=== PATIENT | female | born 1955 | race Caucasian/White ===

== ENCOUNTER 2018-10-13 13:38 | Inpatient (IN) | payer MEDICAID, OTHER ==
[~2018-10-13] VITALS: Ht 157.5 cm; Wt 51.3 kg
--- NOTE | 2018-10-13 13:55 | NUR ---
BIB [id number], SUDDEN ABD PAIN & VOMITING DURING DIALYSIS 30 MINS AGO. FEELING BETTER NOW. DENIES ANY DISCOMFORT @ THIS TIME. TO ER BED 10, HOOKED TO MONITOR, CHANGED TO DR JENA PEREZ AT BEDSIDE
[2018-10-13 13:59] LABS: BASOPHILS % (AUTO) 0.5 % (0.0-2.0); EOSINOPHILS % (AUTO) 2.3 % (0.0-6.0); HEMATOCRIT 41 % (33-45); LYMPHOCYTES # (AUTO) 0.7 /CMM (0.8-4.8); LYMPHOCYTES % (AUTO) 9.7 % (20.0-44.0); MEAN CORPUSCULAR HGB CONC 32 g/dl (31.0-36.0); MEAN CORPUSCULAR VOLUME 91 fL (82-100); MONOCYTES # (AUTO) 0.1 /CMM (0.1-1.30); MONOCYTES % (AUTO) 1.2 % (2.0-12.0); NEUTROPHILS # (AUTO) 5.8 /CMM (1.8-8.9); NEUTROPHILS % (AUTO) 86.3 % (43.0-81.0); PLATELET COUNT (AUTO) 147 /CMM (150-450); RED BLOOD CELL COUNT(AUTO) 4.44 MIL/uL (4.0-5.2); WHITE BLOOD COUNT (AUTO) 6.7 K/uL (4.3-11.0)
[2018-10-13 14:10] LABS: CALCIUM, SERUM 8.4 mg/dL (8.5-10.1); CREATININE 6.8 mg/dL (0.6-1.3); POTASSIUM 5.7 mmol/L (3.5-5.1)
--- NOTE | 2018-10-13 14:24 | NUR ---
CALLING YAIMA MAURER TODAY PER LIZBETH [phone]
--- NOTE | 2018-10-13 15:29 | NUR ---
GOT BED 112-1
--- NOTE | 2018-10-13 15:36 | NUR ---
REPORT GIVEN TO ANJUM OF TELE UNIT.
[2018-10-13 16:00] VITALS: BP 136/55
--- NOTE | 2018-10-13 16:00 | NUR ---
Admission Note: patient was received from emergency room, alert and oriented. No complaints of any pain, No epigastric pain, no nausea or vomiting. patient believed she got nauseated with dialysis being started too fast at outside dialysis. family at bedside. NKA, height and weigh obtained.
[2018-10-13] MEDS ORDERED: ACETAMINOPHEN 325 MG TABLET PO PRN (16:30)
[2018-10-13] MEDS ORDERED: MAG HYDROX/AL HYDROX/SIMETH 30 ML UDC PO PRN (16:30)
[2018-10-13] MEDS ORDERED: Z GUARD REMEDY 2 OZ OINT TP PRN (16:30)
[2018-10-13] MEDS ORDERED: ONDANSETRON HCL/PF 4 MG/2 ML VIAL IVP PRN (16:30)
[2018-10-13] MEDS ORDERED: AMLO5TAB9 PO (16:40)
[2018-10-13] MEDS ORDERED: FOLI0.8T23 PO (16:40)
[2018-10-13] MEDS ORDERED: CARV3.122 PO (16:40)
[2018-10-13] MEDS ORDERED: LINA5TAB PO (16:40)
[2018-10-13] MEDS ORDERED: CALC667C6 PO (16:40)
[2018-10-13] MEDS ORDERED: BENA40TA8 PO (16:40)
[2018-10-13 20:00] VITALS: BP 159/71
--- NOTE | 2018-10-13 20:05 | NUR ---
RN NOTE NOTIFIED Urmila CROWE COMMUNICATIONS SYSTEMS ENGINEER TO GO OVER MEDICATION RECON., PER Urmila SEGAL COMMUNICATIONS SYSTEMS ENGINEER SHE WILL GO OVER
[2018-10-13] MEDS: CALCIUM ACETATE 667 MG TABLET PO SCH (21:28)
[2018-10-14] VITALS (7 sets, daily range): BP systolic 123–160; BP diastolic 59–75
[2018-10-14 07:20] LABS: BASOPHILS # (AUTO) 0.1 /CMM (0.0-0.2); BASOPHILS % (AUTO) 1.2 % (0.0-2.0); EOSINOPHILS % (AUTO) 7.2 % (0.0-6.0); HEMATOCRIT 32 % (33-45); HEMOGLOBIN 10.5 g/dL (11.5-14.8); LYMPHOCYTES # (AUTO) 1.3 /CMM (0.8-4.8); LYMPHOCYTES % (AUTO) 18.1 % (20.0-44.0); MEAN CORPUSCULAR HGB CONC 32 g/dl (31.0-36.0); MEAN CORPUSCULAR VOLUME 90 fL (82-100); MONOCYTES # (AUTO) 0.4 /CMM (0.1-1.30); MONOCYTES % (AUTO) 6.1 % (2.0-12.0); NEUTROPHILS # (AUTO) 4.9 /CMM (1.8-8.9); NEUTROPHILS % (AUTO) 67.4 % (43.0-81.0); PLATELET COUNT (AUTO) 142 /CMM (150-450); RED BLOOD CELL COUNT(AUTO) 3.58 MIL/uL (4.0-5.2); WHITE BLOOD COUNT (AUTO) 7.3 K/uL (4.3-11.0)
[2018-10-14 07:37] LABS: CALCIUM, SERUM 8.4 mg/dL (8.5-10.1); MAGNESIUM 2.8 mg/dL (1.8-2.4); PHOSPHORUS 6.6 mg/dL (2.5-4.9)
[2018-10-14 07:40] LABS: POTASSIUM 6.3 mmol/L (3.5-5.1)
[2018-10-14 07:47] LABS: THYROID STIMULATING HORMONE 1.54 uIU/mL (0.358-3.74)
--- NOTE | 2018-10-14 08:00 | NUR ---
satellite television installer note received patient in bed ,alert oriented x3, family at bedside on ra, no sob noted, rt cw hd cath in place ,lt ac hl intact ,no s\s infection noted , plan of care discussed with patient, able to ambulate to br and urinated yellow color urine ,no c\o pain or discomfort at this time, bed in lowest and locked position , will cont to monitor closely
[2018-10-14] MEDS: CALCIUM ACETATE 667 MG TABLET PO SCH ×3 (08:05→17:01)
[2018-10-14] MEDS: LINAGLIPTIN 5 MG TABLET PO SCH (08:05)
[2018-10-14] MEDS: VIT B CMPLX 3/FA/VIT C/BIOTIN 1 TAB TABLET PO SCH (08:05)
[2018-10-14] MEDS: AMLODIPINE BESYLATE 5 MG TABLET PO SCH ×2 (08:08→16:52)
[2018-10-14] MEDS: CARVEDILOL 3.125 MG TABLET PO SCH ×2 (08:08→16:51)
[2018-10-14] MEDS: PANTOPRAZOLE 40 MG TABLET.DR PO SCH (08:09)
--- NOTE | 2018-10-14 08:46 | NUR ---
SUBSCRIPTION CREW LEADER NOTE SEEN BY DR CHIRINOS AWARE THAT K 6.3 BUN 100 ALSO EKG DONE BY RT ,WILL F\U
[2018-10-14] MEDS ORDERED: BENAZEPRIL HCL 20 MG TABLET PO SCH (09:00)
[2018-10-14] MEDS ORDERED: Medication Not On Formulary EA (Benazepril Hcl 40 MG) PO SCH (09:00)
[2018-10-14] MEDS ORDERED: Medication Not On Formulary EA (Folic Acid/Vitamin B Comp W-C (Rena-Vite Tablet) 0.8 MG) PO SCH (09:00)
--- NOTE | 2018-10-14 10:18 | NUR ---
EXT JS DEVELOPER NOTE SUPINE BP IS 169/75 SITTING 172/70 STANDING 170/67 DR MCINTYRE NOTIFIED NO OTHER BP MEDS AT THIS TIME, STATED PATIENT NEED HD ,WILL F\U
[2018-10-14 10:29] LABS: THYROID STIMULATING HORMONE 1.707 uIU/mL (0.358-3.74)
--- NOTE | 2018-10-14 12:34 | NUR ---
REHABILITATION PHYSICIAN NOTES [facility] COLLECTED HD AT BEDSIDE ,WILL START HD NOW
--- NOTE | 2018-10-14 14:14 | NUR ---
PHOTOGRAPHIC ARTIST NOTE ABD US DONE ORDERED
[2018-10-14 14:47] LABS: APPEARANCE,URINE CLEAR (CLEAR); BILIRUBIN,URINE NEGATIVE (NEGATIVE); BLOOD, URINE TRACE-INTA Ery/uL (NEGATIVE); COLOR,URINE YELLOW (YELLOW); KETONES,URINE NEGATIVE (NEGATIVE); LEUKOCYTE ESTERASE ,URINE NEGATIVE (NEGATIVE); NITRITE, URINE NEGATIVE (NEGATIVE); PH,URINE 7.5 (5.0-8.0); PROTEIN,URINE 2+ mg/dl (NEGATIVE); UGLUCOSE 1+ mg/dL (NEGATIVE); UROBILINOGEN,URINE 0.2 EU/dL (0.2)
--- NOTE | 2018-10-14 14:55 | NUR ---
CARPENTER FORM NOTE ON HD AT THIS TIME FAMILY AT BEDSIDE ,NOT IN DISTRESS, WILL F\I
[2018-10-14 15:19] LABS: BACTERIA,URINE None seen /HPF (None Seen); RBC,URINE 0-2 /HPF (0-2); SQUAMOUS EPITHELIAL CELL,UR Few /HPF (None Seen); WBC,URINE 0-2 /HPF (0-3)
--- NOTE | 2018-10-14 15:40 | NUR ---
CLOSER ON NOTE HD COMPLETED, 1.5 FLUIDS REMOVED BP 159/66 HR 71
[2018-10-14] MEDS: AZITHROMYCIN 250 MG TABLET PO SCH (16:05)
[2018-10-14] MEDS: CEFTRIAXONE 1 G in IV D5W 50 ML IV SCH (17:32)
--- NOTE | 2018-10-14 17:41 | NUR ---
telecommunications support note carotid us doing now .family at bedside, call needs attended
--- NOTE | 2018-10-14 18:12 | NUR ---
outbound telemarketing representative note all needs attended, eat dinner family at bedside ,not in acute distress
--- NOTE | 2018-10-14 20:00 | NUR ---
RN/TELE NOTES: RECEIVED PT. IN BED W/ HOB ELEVATED. A/O X 4. VERBALLY RESPONSIVE. DENIES ANY C/O CHEST PAIN OR SOB AT PRESENT. ON TELE MONITOR W/ SR. HAS RT. UPPER CHEST WALL HD CATH. HAD DIALYSIS W/ 1.5 L OUT. HAS LAC HL PATENT AND INTACT W/ NO S/S OF INFECTION/INFILTRATION NOTED. CONTINENT OF B/B. CALL LIGHT W/ REACH. ALL NEEDS MEET.
[2018-10-15] VITALS: BP_SYST 148; BP_SYST 149; BP_SYST 158; BP_DIAS 58; BP_DIAS 75
[2018-10-15 04:00] VITALS: BP 158/68
[2018-10-15 06:36] LABS: BASOPHILS # (AUTO) 0.1 /CMM (0.0-0.2); BASOPHILS % (AUTO) 0.9 % (0.0-2.0); EOSINOPHILS % (AUTO) 8.9 % (0.0-6.0); HEMATOCRIT 33 % (33-45); HEMOGLOBIN 10.7 g/dL (11.5-14.8); LYMPHOCYTES # (AUTO) 1.1 /CMM (0.8-4.8); LYMPHOCYTES % (AUTO) 19.9 % (20.0-44.0); MEAN CORPUSCULAR HGB CONC 33 g/dl (31.0-36.0); MEAN CORPUSCULAR VOLUME 89 fL (82-100); MONOCYTES # (AUTO) 0.5 /CMM (0.1-1.30); MONOCYTES % (AUTO) 7.9 % (2.0-12.0); NEUTROPHILS # (AUTO) 3.5 /CMM (1.8-8.9); NEUTROPHILS % (AUTO) 62.4 % (43.0-81.0); PLATELET COUNT (AUTO) 104 /CMM (150-450); RED BLOOD CELL COUNT(AUTO) 3.66 MIL/uL (4.0-5.2); WHITE BLOOD COUNT (AUTO) 5.7 K/uL (4.3-11.0)
[2018-10-15 06:41] LABS: ALBUMIN 3.3 g/dL (3.4-5.0); BILIRUBIN,TOTAL 0.4 mg/dL (0.2-1.0); CALCIUM, SERUM 8.5 mg/dL (8.5-10.1); CREATININE 5.8 mg/dL (0.6-1.3); MAGNESIUM 2.4 mg/dL (1.8-2.4); PHOSPHORUS 5.5 mg/dL (2.5-4.9); POTASSIUM 4.8 mmol/L (3.5-5.1); TOTAL PROTEIN, SERUM 6.4 g/dL (6.4-8.2)
--- NOTE | 2018-10-15 07:15 | NUR ---
RN/TELE NOTES: REPORT GIVEN TO NEXT SHIFT NURSE FOR LASHANDA.
[2018-10-15 08:00] VITALS: BP 162/61
[2018-10-15] MEDS: PANTOPRAZOLE 40 MG TABLET.DR PO SCH (08:25)
[2018-10-15] MEDS: CALCIUM ACETATE 667 MG TABLET PO SCH ×3 (08:26→18:45)
[2018-10-15] MEDS: LINAGLIPTIN 5 MG TABLET PO SCH (08:35)
[2018-10-15] MEDS: VIT B CMPLX 3/FA/VIT C/BIOTIN 1 TAB TABLET PO SCH (08:35)
[2018-10-15] MEDS: AMLODIPINE BESYLATE 5 MG TABLET PO SCH ×2 (08:35→18:45)
[2018-10-15] MEDS: CARVEDILOL 3.125 MG TABLET PO SCH ×2 (08:36→18:46)
[2018-10-15] MEDS ORDERED: ASPIRIN 81 MG TAB.CHEW PO SCH (09:00)
[2018-10-15] MEDS ORDERED: AZIT250T PO (11:53)
[2018-10-15] MEDS ORDERED: ASPI-1169 PO (11:53)
[2018-10-15 12:00] VITALS: BP 161/88
--- NOTE | 2018-10-15 13:50 | NUR ---
phoslo 1334mg not given due to patient is having dialysis at this time
--- NOTE | 2018-10-15 14:05 | NUR ---
MS RN NOTES RECEIVED PT FROM MOMO BRADY .PT IS LYING ON BED HAVING HEMO DIALYSIS.ALERT/ORIENTED X3.ON ROOM AIR,TOLERATING WELL.NO SOB AND ACUTE DISTRESS NOTED.IV LINE IS ON LEFT AC AND HD CATH I ON RIGHT CHEST WALL,SITE IS CLEAN DRY AND INTACT.NO INFILTRATION NOTED.FAMILY IS AT BEDSIDE.SAFETY IS MAINTAINED AT ALL TIMES.CALL LIGHT IS WITHIN REACH.WILL CONTINUE TO MONITOR THE PT CLOSELY.
--- NOTE | 2018-10-15 14:12 | NUR ---
report given to MOMO Ozuna with questions asnwered
[2018-10-15 16:00] VITALS: BP 163/62
[2018-10-15] MEDS: CEFTRIAXONE 1 G in IV D5W 50 ML IV SCH (16:32)
--- NOTE | 2018-10-15 16:45 | NUR ---
MS RN NOTES PT WENT TO HAVE CTA CHEST WITH CONTRAST WITH STAFF.
[2018-10-15] MEDS ORDERED: CT SWABBABLE VALVE TRANS SET 1 EA INFUS.SET MC ONE (16:57)
[2018-10-15] MEDS ORDERED: IOHEXOL-350 100 ML VIAL IV ONE (16:57)
[2018-10-15] MEDS ORDERED: IV NS 0.9% 250 ML IV ONE (16:58)
[2018-10-15] MEDS ORDERED: METOPROLOL TARTRATE INJ 5 MG/5 ML AMPUL ONE ×5 (16:58→17:52)
--- NOTE | 2018-10-15 18:20 | NUR ---
MS RN NOTES PT CAME BACK FROM CT SCAN.TOLERATED WELL.NO COMPLICATIONS NOTED.WAITING FOR THE RESULT.
[2018-10-15] MEDS: AZITHROMYCIN 250 MG TABLET PO SCH (18:46)
--- NOTE | 2018-10-15 19:00 | NUR ---
MS RN NOTES PT IS ON BED.RESPIRATION IS EVEN AND NONLABORED.NO SOB AND ACUTE DISTRESS NOTED.EXIT CARE IS DONE.ENDORSED TO NIGHT MOMO TEJADA FOR LASHANDA AND FOLLOW UP WITH DISCHARGE PLAN.
[2018-10-15 20:00] VITALS: BP 149/62
--- NOTE | 2018-10-15 21:11 | NUR ---
MS /RN NOTES: RECEIVED PT. IN CHAIR SITTING AND WAITING TO BE D/C. A/O X 4. VERBALLY RESPONSIVE. ABLE TO MAKE NEEDS KNOWN. DENIES ANY C/O CHEST PAIN OR SOB AT PRESENT. HAD DIALYSIS TODAY W/ 1 L OUT. ALL NEEDS MEET. PER PT. THEY HAVE ALL READY TOOK OUT THE HL ON LAC THE NURSE EARLIER. AT BEDSIDE. CT RESULTS CAME AND CLARIFIED W/ DR. AVIS DUPREE W/ ORDERS CLEARED TO BE DISCHARGED. D/C INSTRUCTIONS GIVEN TO PT. AND . PT.'S PHARMACY IS [facility] ON [address] [facility] OF [address] IS 9 AM TO 6 PM. # IS [phone]. PT. DOES GET ANTIBIOTIC X 5 DAYS. INFORMED TO CALL [facility]BY FLOOR ON 10/16/18 AND ASK THE CHARGE NURSE TO HAVE THE RX. CALL IN THE PHARMACY. PT. LEFT UNIT W/ IN STABLE CONDITION AT 9 P.M. PT. TOOK ALL HER BELONGINGS.
== END 2018-10-15 20:30 | disposition home or self-care (01) | DRG 48 ==
LOC: ER 13:41 → TELE1 15:31 → MEDSG1 10-15 08:36
PROVIDERS: ADMIT Registered Nurse; ATTEND Nurse Practitioner Acute Care
PROC: 5A1D70Z Performance of Urinary Filtration, Intermittent, Less than 6 Hours Per Day (ICD-10-PCS; principal; 2018-10-14)
PROC: 5A1D70Z Performance of Urinary Filtration, Intermittent, Less than 6 Hours Per Day (ICD-10-PCS; 2018-10-15)
DX: G90.8 Other disorders of autonomic nervous system (principal); I21.A1 Myocardial infarction type 2; E87.8 Other disorders of electrolyte and fluid balance, not elsewhere classified; J15.9 Unspecified bacterial pneumonia; E11.22 Type 2 diabetes mellitus with diabetic chronic kidney disease; I12.0 Hypertensive chronic kidney disease with stage 5 chronic kidney disease or end stage renal disease; N25.0 Renal osteodystrophy; N18.6 End stage renal disease; E87.5 Hyperkalemia; Z99.2 Dependence on renal dialysis; D64.9 Anemia, unspecified; J20.9 Acute bronchitis, unspecified
CPT/HCPCS: 36415; 71045-TC; 75574; 76700-TC; 80048-TC; 80053-TC; 80061-TC; 81000-TC; 82728-TC; 83540-TC; 83735-TC; 83970; 84100-TC; 84439-TC; 84443-TC; 84484-TC; 85025-TC; 87081-TC; 90935-TC; 93307-TC; 93880-TC; G0378; J0696; J2405; J3490; J7050; J7060; Q9967

== ENCOUNTER 2019-10-07 12:37 | Inpatient (IN) | payer OTHER ==
[~2019-10-07] VITALS: Ht 162.6 cm; Wt 56.7 kg
[~2019-10-07 12:37] MED LIST: AMLO5TAB9 PO; ASPI-1169 PO; AZIT250T PO; CALC667C6 PO; CARV3.122 PO; FOLI0.8T23 PO; LINA5TAB PO
[2019-10-07] MEDS ORDERED: NIFE90TA38 PO (12:58)
[2019-10-07] MEDS ORDERED: ASPI-1152 PO (12:58)
[2019-10-07] MEDS ORDERED: SEVE800T7 PO (12:58)
--- NOTE | 2019-10-07 12:59 | NUR ---
Patient BIB EMS from dialysis patient per report patient has syncopal episode during dialysis BS 170 ,vitals with in normal per report .Patient to room 8 lethrgic but arousable ,palce monitor ,vitals ,EKG and kelley MD @ bedside
[2019-10-07 13:00] LABS: BASOPHILS # (AUTO) 0.1 /CMM (0.0-0.2); BASOPHILS % (AUTO) 0.8 % (0.0-2.0); EOSINOPHILS % (AUTO) 6.2 % (0.0-6.0); HEMATOCRIT 31 % (33-45); HEMOGLOBIN 10.1 g/dL (11.5-14.8); LYMPHOCYTES # (AUTO) 1.3 /CMM (0.8-4.8); LYMPHOCYTES % (AUTO) 19.7 % (20.0-44.0); MEAN CORPUSCULAR HGB CONC 33 g/dl (31.0-36.0); MEAN CORPUSCULAR VOLUME 98 fL (82-100); MONOCYTES # (AUTO) 0.4 /CMM (0.1-1.30); MONOCYTES % (AUTO) 5.6 % (2.0-12.0); NEUTROPHILS # (AUTO) 4.4 /CMM (1.8-8.9); NEUTROPHILS % (AUTO) 67.7 % (43.0-81.0); PLATELET COUNT (AUTO) 124 /CMM (150-450); RED BLOOD CELL COUNT(AUTO) 3.13 MIL/uL (4.0-5.2); WHITE BLOOD COUNT (AUTO) 6.5 K/uL (4.3-11.0)
[2019-10-07] MEDS ORDERED: ONDANSETRON HCL/PF 4 MG/2 ML VIAL ONE (13:07)
[2019-10-07 13:12] LABS: ALANINE AMINOTRANSFERASE 19 U/L (12-78); ALKALINE PHOSPHATASE 126 U/L (46-116); ASPARTATE AMINOTRANSFERASE 19 U/L (15-37); BILIRUBIN,DIRECT 0.1 mg/dL (0.0-0.2); BILIRUBIN,TOTAL 0.3 mg/dL (0.2-1.0); CALCIUM, SERUM 8.6 mg/dL (8.5-10.1); CARBON DIOXIDE 20 mmol/L (21-32); CHLORIDE 103 mmol/L (98-107); GLUCOSE 205 mg/dL (74-106); POTASSIUM 4.9 mmol/L (3.5-5.1); SODIUM SERUM 138 mmol/L (136-145); TOTAL PROTEIN, SERUM 7.4 g/dL (6.4-8.2)
--- NOTE | 2019-10-07 13:14 | NUR ---
TO CT noted patient is nauseated MD aware with orders
[2019-10-07 13:15] LABS: CREATININE 10.1 mg/dL (0.6-1.3); UREA NITROGEN, BLOOD 133 mg/dL (7-18)
[2019-10-07 13:16] LABS: SERUM AMMONIA 11 umol/L (11-32)
--- NOTE | 2019-10-07 13:20 | NUR ---
CALLED NURSING SUP FOR TELE BED.
--- NOTE | 2019-10-07 13:29 | NUR ---
NURSING SUP GAVE TELE BED 102.
[2019-10-07] MEDS ORDERED: ONDANSETRON HCL/PF - ER 4 MG/2 ML VIAL IV ONE (13:30)
--- NOTE | 2019-10-07 13:53 | NUR ---
Patient just came back from CT scan. Patient is lethargic but arousable , BS checked 189, VS checked, family at bedside.
--- NOTE | 2019-10-07 14:06 | NUR ---
Per Dr Kemi smiley to place in and out cath, patient adithyas agreed.
--- NOTE | 2019-10-07 14:17 | NUR ---
DR CHIRINOS CALLED FROM [facility]. GAVE AUTHORIZATION TO STAY.
--- NOTE | 2019-10-07 15:00 | NUR ---
Patient agrees for in and out observed steril technique urine obtained and send to lab for tox,urinalysis ,culture assisted by Padmini student nurse
[2019-10-07 15:12] LABS: APPEARANCE,URINE Cloudy (CLEAR); BILIRUBIN,URINE Negative (NEGATIVE); BLOOD, URINE Trace-intact Ery/uL (NEGATIVE); COLOR,URINE Yellow (YELLOW); KETONES,URINE Negative (NEGATIVE); LEUKOCYTE ESTERASE ,URINE Negative (NEGATIVE); NITRITE, URINE Negative (NEGATIVE); PH,URINE 5.5 (5.0-8.0); PROTEIN,URINE >=300 mg/dl (NEGATIVE); UGLUCOSE Negative (NEGATIVE); UROBILINOGEN,URINE 0.2 EU/dL (0.2)
[2019-10-07] MEDS ORDERED: Z GUARD REMEDY 2 OZ OINT TP PRN (15:30)
[2019-10-07] MEDS ORDERED: MAGNESIUM HYDROXIDE 30 ML UDC PO PRN (15:30)
[2019-10-07] MEDS ORDERED: MAG HYDROX/AL HYDROX/SIMETH 30 ML UDC PO PRN (15:30)
[2019-10-07 15:32] LABS: BACTERIA,URINE None seen /HPF (None Seen); RBC,URINE 0-2 /HPF (0-2); SQUAMOUS EPITHELIAL CELL,UR Few /HPF (None Seen); WBC,URINE 0-2 /HPF (0-3)
--- NOTE | 2019-10-07 15:44 | NUR ---
Report given to Steve Blanchard made aware paln of care ,family @ bedside 102-1
[2019-10-07 15:45] VITALS: BP 139/61
--- NOTE | 2019-10-07 15:45 | NUR ---
RN NOTES RECEIVED PATIENT FROM ED VIA JONATAN. PT IS AOX1, SLURRED SPEECH, AND IS LETHARGIC. VSS. SHE IS ON 2L OF OXYGEN VIA NC, TOLERATING WELL. LUNGS SOUND CLEAR BILATERALLY. PUPILS ARE PERRLA. SKIN IS INTACT. SHE IS ABLE TO FOLLOW COMMANDS BUT IS VERY LETHARGIC AND WEEK. ADMITTING ORDERS HAVE BEEN RECEIVED. SAFETY MEASURES HAVE BEEN IMPLEMENTED, CALL LIGHT IS WITHIN REACH, BED IS IN LOWEST AND LOCKED POSITION, SIDE RAILS UP X2, WILL CONTINUE TO MONITOR FOR ANY CHANGES.
[2019-10-07 16:00] VITALS: BP 139/61
[2019-10-07] MEDS ORDERED: DEXTROSE 50%-WATER 50 ML DISP.SYRIN IV PRN (16:00)
[2019-10-07] MEDS: ONDANSETRON HCL/PF 4 MG/2 ML VIAL IVP PRN (16:53)
[2019-10-07] MEDS: ACETAMINOPHEN 325 MG TABLET PO PRN (16:58)
[2019-10-07] MEDS: CARVEDILOL 3.125 MG TABLET PO SCH (16:59)
[2019-10-07] MEDS: SEVELAMER CARBONATE 800 MG TABLET PO SCH (18:00)
[2019-10-07] MEDS: CALCIUM ACETATE 667 MG TABLET PO SCH (18:00)
[2019-10-07] MEDS: BLOOD SUGAR DIAGNOSTIC 1 EACH STRIP IN SCH ×2 (18:29→21:34)
[2019-10-07] MEDS: INSULIN REGULAR, HUMAN 100 UNIT/ML 3 ML VIAL SQ PRN ×2 (18:30→21:38)
--- NOTE | 2019-10-07 19:30 | NUR ---
recieved in bed lethrgic. left arm HD cath wrapped in gauze CDI. Family at the bedside. patient will follow directions Hand cell installer weak
--- NOTE | 2019-10-07 19:52 | NUR ---
RN CLOSING NOTES PATIENT IS RESTING IN BED COMFORTABLY WITH FAMILY AT BEDSIDE. SHE IS STILL LETHARGIC. SHE IS ON 2L OF O2, TOLERATING WELL. PT NEEDS HAVE BEEN MET, VITAL SIGNS ARE STABLE, NO ACUTE CHANGES OCCURRED THROUGHOUT THE SHIFT. SAFETY MEASURES HAVE BEEN IMPLEMENTED, CALL LIGHT IS WITHIN REACH, BED IS IN LOWEST AND LOCKED POSITION, SIDE RAILS UP X2, PT HAS BEEN ENDORSED TO NIGHTSHIFT RN FOR CONTINUITY OF CARE.
[2019-10-07 20:00] VITALS: BP 177/72
[2019-10-07] MEDS: CLONIDINE HCL 0.1 MG TABLET PO PRN (20:40)
[2019-10-08] VITALS: BP 168/72
[2019-10-08] MEDS: ONDANSETRON HCL/PF 4 MG/2 ML VIAL IVP PRN (03:19)
[2019-10-08] MEDS: ACETAMINOPHEN 325 MG TABLET PO PRN ×3 (04:12→18:24)
[2019-10-08] MEDS: CLONIDINE HCL 0.1 MG TABLET PO PRN (04:17)
[2019-10-08 05:20] VITALS: BP 183/83
--- NOTE | 2019-10-08 06:19 | NUR ---
rEMAINS LETHARGIC BUT AROUSABLE AND WILL ANSWER SIMPLE QUESTION AND FOLLOW SIMPLE COMMANDS. HAND MAIL SORTER EQUAL AND WEAK ANTHONY SMILE IS SYMETRICAL, DTR AT BEDSIDE CONCERNED OVER CONDITION OF HER MOM. PATIENTS B/P RUNNUNG HIGH NOT REALLY BEING CONTROLLED WITH PRN CLONIDINE WILL LET KNOW THIS AM
[2019-10-08 06:34] LABS: BASOPHILS % (AUTO) 0.1 % (0.0-2.0); HEMATOCRIT 30 % (33-45); HEMOGLOBIN 9.8 g/dL (11.5-14.8); LYMPHOCYTES # (AUTO) 0.3 /CMM (0.8-4.8); LYMPHOCYTES % (AUTO) 4.4 % (20.0-44.0); MEAN CORPUSCULAR HGB CONC 33 g/dl (31.0-36.0); MEAN CORPUSCULAR VOLUME 98 fL (82-100); MONOCYTES # (AUTO) 0.2 /CMM (0.1-1.30); MONOCYTES % (AUTO) 2.8 % (2.0-12.0); NEUTROPHILS # (AUTO) 6.4 /CMM (1.8-8.9); NEUTROPHILS % (AUTO) 92.7 % (43.0-81.0); PLATELET COUNT (AUTO) 114 /CMM (150-450); RED BLOOD CELL COUNT(AUTO) 3.04 MIL/uL (4.0-5.2); WHITE BLOOD COUNT (AUTO) 6.9 K/uL (4.3-11.0)
[2019-10-08] MEDS: BLOOD SUGAR DIAGNOSTIC 1 EACH STRIP IN SCH ×4 (06:36→21:12)
[2019-10-08 06:49] LABS: THYROID STIMULATING HORMONE 1.489 uIU/mL (0.358-3.74)
[2019-10-08 06:53] LABS: CALCIUM, SERUM 8.8 mg/dL (8.5-10.1); MAGNESIUM 3.2 mg/dL (1.8-2.4); PHOSPHORUS 4.8 mg/dL (2.5-4.9)
[2019-10-08 07:20] LABS: CREATININE 11.7 mg/dL (0.6-1.3); POTASSIUM 6.9 mmol/L (3.5-5.1)
[2019-10-08 08:00] VITALS: BP 194/63
[2019-10-08] MEDS: CALCIUM ACETATE 667 MG TABLET PO SCH ×3 (08:00→17:59)
[2019-10-08] MEDS: SEVELAMER CARBONATE 800 MG TABLET PO SCH ×3 (08:00→17:59)
[2019-10-08] MEDS: CARVEDILOL 3.125 MG TABLET PO SCH ×2 (08:22→17:00)
[2019-10-08] MEDS: NIFEdipine XL (30MG) 30 MG TAB PO SCH (08:23)
[2019-10-08] MEDS: VITAMIN B COMP W-C 1 TAB TABLET PO SCH (08:28)
[2019-10-08] MEDS: ASPIRIN EC 81 MG TABLET.DR PO SCH (08:28)
--- NOTE | 2019-10-08 08:28 | NUR ---
TELE/RN NOTES MEDICATION COREG AND NIFEDIPINE WAS GIVEN DUE TO HIGH BLOOD PRESSURE. PER DIALYSIS NURSE DR. MAURER IS AWARE OF THE CURRENT CONDITION OF THE PATIENT WITH HIGH B/P, POTASSIUM, BUN AND CREAT. WILL CONTINUE TO MONITOR CLOSELY.
--- NOTE | 2019-10-08 08:30 | NUR ---
TELE/RN NOTES SPOKE TO DR. WILLIAMSON REGARDING THE PATIENT FOR TOMORROWS PROCEDURE, REVISION OF THE AV FISTULA, AND PLACEMENT OF A TUNNELED DIALYSIS CATHETER. HE ALSO ORDERED BMP FOR TOMORROW AND PATIENT WILL BE NPO AT MIDNIGHT. DAUGHTER AT BEDSIDE WAS MADE AWARE. ALL ORDERED NOTED AND CARRIED OUT. WILL CONTINUE TO MONITOR PATIENT CLOSELY.
[2019-10-08] MEDS ORDERED: AMLODIPINE BESYLATE 5 MG TABLET PO SCH (09:00)
--- NOTE | 2019-10-08 10:30 | NUR ---
TELE/RN NOTES DR. SALAZAR ARRIVED IN THE UNIT TO PLACE A TEMPORARY DIALYSIS SITE ON THE R FEMORAL AREA. PATIENT WAS ABLE TO TOLERATE THE PROCEDURE WELL. AWAITING FOR DIALYSIS SESSION.
[2019-10-08] MEDS ORDERED: SODIUM POLYSTYRENE SULFONATE 15 G/60 ML BOTTLE PO ONE (11:00)
--- NOTE | 2019-10-08 11:30 | NUR ---
TELE/RN NOTES PER CHARGE NURSE SOON, HOLD KAYEXALATE FOR NOW SINCE PATIENT IS DOING DIALYSIS. AFTER DIALYSIS WE WILL CHECK POTASSIUM LEVELS AND IF KAYEXALATE IS NEEDED IT WILL BE GIVEN. PATIENT CONTINUES TO REMAIN IN STABLE CONDITION. WILL CONTINUE TO MONITOR.
--- NOTE | 2019-10-08 11:42 | NUR ---
TELE/RN NOTES MEDICATION INSULIN WAS NOT GIVEN DUE TO NPO STATUS. BS IS 163 AT THE MOMENT. CONTINUE TO MONITOR CLOSELY.
[2019-10-08 12:00] VITALS: BP 187/66
[2019-10-08] MEDS ORDERED: ALBUMIN 25% 25 GM in PREMIX 1 EA IV PRN (14:00)
[2019-10-08 15:44] LABS: CALCIUM, SERUM 9.7 mg/dL (8.5-10.1); CREATININE 3.7 mg/dL (0.6-1.3); POTASSIUM 3.6 mmol/L (3.5-5.1)
[2019-10-08 16:00] VITALS: BP 159/61
--- NOTE | 2019-10-08 16:01 | NUR ---
TELE/RN NOTES PATIENT WAS ABLE TO TOLERATE DIALYSIS SESSION. AFTER DIALYSIS BMP WAS CHECKED ONCE AGAIN. POTASSIUM WAS 3.6, KAYEXALATE WAS NOT ADMINISTERED PER CHARGE NURSE. PATIENT CONTINUES TO REMAIN IN STABLE CONDITION. WILL CONTINUE TO MONITOR CLOSELY.
--- NOTE | 2019-10-08 17:59 | NUR ---
TELE/RN NOTES PATIENT UNABLE TO TOLERATE MEDICATIONS AT THE MOMENT, PATIENT IS TOO SLEEPY. FAMILY AT BEDSIDE TRY TO WAKE UP PATIENT WELL, BUT PATIENT CONTINUES TO SLEEP. INSULIN WAS HELD WELL DUE TO PATIENT LIMITED INTAKE. WILL CONTINUE TO MONITOR CLOSELY.
[2019-10-08] MEDS ORDERED: ACETAMINOPHEN 650 MG/SUPP.RECT RC PRN (18:00)
--- NOTE | 2019-10-08 18:25 | NUR ---
TELE/RN NOTES PATIENT IS NOTED WITH SLIGHT FEVER. TYLENOL PO WAS PULLED OUT, CRUSHED AND MIXED WITH APPLE SAUCE BUT PATIENT WAS UNABLE TO BE AROUSED. TYLENOL SUPPOSITORY WAS GIVEN INSTEAD. PATIENT WAS ABLE TO TYLENOL SUPP WELL. WILL CONTINUE TO MONITOR CLOSELY.
--- NOTE | 2019-10-08 19:15 | NUR ---
GRADING MACHINE FEEDER RECEIVED PATIENT IN BED A/O X 1 LETHARGIC ABLE TO ANSWER QUESTION FOLLOW COMMANDS, DAUGTHER AT BEDSIDE, STABLE AND NOT IN DISTRESS. WILL CONTINUE TO MONITOR
--- NOTE | 2019-10-08 19:33 | NUR ---
MS BARR RECEIVED PATIENT IN BED A/O X 3, STABLE AND NOT IN DISTRESS. WILL CONTINUE TO MONITOR Addendum: 10/08/19 at 2002 by CAMERON SCOTT RN MISTAKEN ENTRY PLEASE DISREGARD THIS DOCUMENTATION THIS IS FOR DIFFERENT PATIENT
--- NOTE | 2019-10-08 19:43 | NUR ---
TELE/RN CLOSING NOTES PATIENT CONTINUES TO REMAINS IN STABLE CONDITION THROUGHOUT THE SHIFT. PROVIDED COMFORT AND SAFETY. PATIENT ABLE TO TOLERATE DIALYSIS WELL. ALL NEEDS ANTICIPATED CALL LIGHT WITHIN REACHED. BED LOCKED AND IN LOWEST POSITION. SAFETY MAINTAINED. WILL CONTINUE TO MONITOR CLOSELY. ENDORSED TO PM NURSE FOR LASHANDA.
[2019-10-08 20:00] VITALS: BP 154/72
--- NOTE | 2019-10-08 20:21 | NUR ---
Met with patient, spouse and daughter at bedside. Patient resides locally with family in a single level dwelling. She is ambulatory and independent with adl's at baseline. Has no DME or homehealth reported. She receives hemodialysis every MWF @ 7am at [facility] [phone]. Family involved and supportive with plan of care. Pcp is Dr. Farah in [place]. Family will provide ride when discharge. Addendum: 10/08/19 at 2033 by SAUL WELCH RN Amended: Links added.
[2019-10-08] MEDS: INSULIN REGULAR, HUMAN 100 UNIT/ML 3 ML VIAL SQ PRN (21:13)
--- NOTE | 2019-10-08 21:13 | NUR ---
PT'S OLDEST DAUGTHER TOMMY AT BEDSIDE REFUSED INSULIN SLIDING SCALE COVERAGE AT THIS TIME FOR HER MOTHER. ACCORDING TO HER MOTHER IS NOT EATING THAT MUCH DESPITE EXPLAINING RISKS AND BENEFITS. BLOOS SUGAR 143 MG/DL
[2019-10-09] VITALS (10 sets, daily range): BP systolic 144–182; BP diastolic 60–80
[2019-10-09 06:16] LABS: BASOPHILS % (AUTO) 0.4 % (0.0-2.0); EOSINOPHILS % (AUTO) 0.1 % (0.0-6.0); HEMATOCRIT 26 % (33-45); HEMOGLOBIN 8.6 g/dL (11.5-14.8); LYMPHOCYTES # (AUTO) 0.5 /CMM (0.8-4.8); LYMPHOCYTES % (AUTO) 6.3 % (20.0-44.0); MEAN CORPUSCULAR HGB CONC 33 g/dl (31.0-36.0); MEAN CORPUSCULAR VOLUME 97 fL (82-100); MONOCYTES # (AUTO) 0.4 /CMM (0.1-1.30); MONOCYTES % (AUTO) 5.4 % (2.0-12.0); NEUTROPHILS # (AUTO) 6.9 /CMM (1.8-8.9); NEUTROPHILS % (AUTO) 87.8 % (43.0-81.0); PLATELET COUNT (AUTO) 96 /CMM (150-450); RED BLOOD CELL COUNT(AUTO) 2.65 MIL/uL (4.0-5.2); WHITE BLOOD COUNT (AUTO) 7.9 K/uL (4.3-11.0)
[2019-10-09 06:48] LABS: CALCIUM, SERUM 8.8 mg/dL (8.5-10.1); POTASSIUM 5.2 mmol/L (3.5-5.1)
--- NOTE | 2019-10-09 06:50 | NUR ---
PT ASLEEP AND EASILY AWAKEN, A/O X1, ANSWER SIMPLE QUESTIONS FOLLOWS COMMANDS, NO S/S OF DISTRESS AT TIME. AFEBRILE. SLEPT WELL. AM CARE RENDERED, KEPT CLEAN, DRY AND COMFORTABLE. NEEDS ATTENDED AND ANTICIPATED. SAFETY MEASURES AT ALL TIMES. WILL ENDORSE NEXT SHIFT POC. DAUGHTER TOMMY AT BEDSIDE AND WANTED TO SPEAK WITH THE DOCTOR ABOUT POLST. WILL ENDORSE
[2019-10-09 06:58] LABS: CREATININE 7.6 mg/dL (0.6-1.3)
[2019-10-09] MEDS: CALCIUM ACETATE 667 MG TABLET PO SCH ×2 (08:00→12:12)
[2019-10-09] MEDS: SEVELAMER CARBONATE 800 MG TABLET PO SCH ×2 (08:00→12:12)
--- NOTE | 2019-10-09 08:00 | NUR ---
RN NOTE PT ABLE TO BARELY RESPOND TO VERBAL STIMULI, WEAKLY OPENS EYES, TURNS HEAD, WEAK TOBACCO STRIPPING MACHINE OPERATOR BILATERAL. UNABLE TO FOLLOW OTHER COMMANDS. WILL FOLLOW UP WITH MD. FAMILY AT BEDSIDE.
[2019-10-09] MEDS: BLOOD SUGAR DIAGNOSTIC 1 EACH STRIP IN SCH ×2 (08:08→12:08)
[2019-10-09] MEDS: NIFEdipine XL (30MG) 30 MG TAB PO SCH (08:21)
[2019-10-09] MEDS: ASPIRIN EC 81 MG TABLET.DR PO SCH (08:21)
[2019-10-09] MEDS: CARVEDILOL 3.125 MG TABLET PO SCH (08:21)
[2019-10-09] MEDS: VITAMIN B COMP W-C 1 TAB TABLET PO SCH (08:22)
[2019-10-09 11:27] LABS: BAND % (MANUAL) 1 % (0.0-5.0); LYMPHOCYTES % (MANUAL) 10 % (16-48); MONOCYTES % (MANUAL) 8 % (0-11.0); NEUTROPHILS % (MANUAL) 81 (42-76)
--- NOTE | 2019-10-09 12:30 | NUR ---
RN NOTE PAGED YIFAN MENJIVAR OVER EPIC, RE CT HEAD RESULT ABOUT ACUTE STROKE, NO NEW ORDERS, HE WILL SPEAK WITH DR JACKSON.
--- NOTE | 2019-10-09 13:00 | NUR ---
RN NOTE REPORTED BOP 182/75 MM[facility] TO SENIOR LINUX SYSTEMS ADMINISTRATOR MENJIVAR, AND TEMP 100.3, NO NEW ORDERS, NO BP MEDS TO BE GIVEN AT THIS TIME
--- NOTE | 2019-10-09 13:25 | NUR ---
RN NOTE PT TRANSFERRED TO ICU RM 252, REPORT GIVEN TO HALEY KITCHEN STEWARD FOR LASHANDA. FAMILY ASKED TO WAIT IN WAITING ROOM, DAUGHTER TOMMY HAD PT'S BELONGINGS WITH HER.
--- NOTE | 2019-10-09 13:30 | NUR ---
RN NOTES RECEIVED PT FROM [facility] VIA BED. PT LETHARGIC, OPEN EYES TO PAINFUL STIMULI. ON 02 VIA NC AT 2LPM. NO RESPIRATORY DISTRESS NOTED. NO SOB NOTED. PUPIL ASSESSMENT DONE. RIGHT PUPIL, FIXED AND NON-REACTIVE. LEFT PUPIL SLUGGISH. RUE AND RLE FLACCID, LUE AND LLE RESPONDS TO PAIN. IV LINE IN PLACE. MELITON AV FISTULA NOTED. NO BRUIT OR THRILL NOTED. RIGHT FEMORAL HD CATH IN PLACE. PT CONNECTED TO MONITOR. MIRA MENJIVAR NP AT BEDSIDE. WILL CLOSELY MONITOR
--- NOTE | 2019-10-09 13:45 | NUR ---
RN NOTES NESTOR FROM [facility] CALLED. GIVEN UPDATE ON PT'S CONDITION. PT FOR TRANSFER TO [facility] FOR HYDROCEPHALUS AND ACUTE INFARCT. WILL CLOSELY MONITOR
[2019-10-09] MEDS ORDERED: IV MANNITOL 20% 250 ML in PREMIX 1 EA IV SCH (14:00)
--- NOTE | 2019-10-09 14:31 | NUR ---
RN NOTE Spoke with Levar, via phone and informed re: the transfer to other hospital.
[2019-10-09] MEDS ORDERED: [UNRECOGNIZED DRUG - CODE] IV (14:34)
--- NOTE | 2019-10-09 14:40 | NUR ---
RN NOTES 1430 CALLED [facility] FOR REPORT ([phone]) SPOKE WITH MOMO GAMBOA. ALL PERTINENT INFORMATION GIVEN. PT GOING TO ROOM 4524 BED 1. 1440 PT LEFT VIA [facility] AMBULANCE. BP 198/77, MIRA MENJIVAR, EDGE GLUER AWARE. EDGE GLUER OK WITH BP PERMISSIVE HYPERTENSION. PT REMAINS LETHARGIC, RESPONDS TO PAIN. LEFT TO [facility]. FAMILY NOTIFIED
== END 2019-10-09 14:48 | disposition short-term general hospital (02) | DRG 314 ==
LOC: ER 12:41 → TELE1 15:13 → MEDSG1 10-09 08:25 → TELE1 10-09 12:47 → ICU 10-09 13:10
PROVIDERS: ADMIT Nurse Practitioner Acute Care; ATTEND Nurse Practitioner Acute Care
PROC: 06HY33Z Insertion of Infusion Device into Lower Vein, Percutaneous Approach (ICD-10-PCS; principal; 2019-10-08)
PROC: 5A1D70Z Performance of Urinary Filtration, Intermittent, Less than 6 Hours Per Day (ICD-10-PCS; principal; 2019-10-08)
DX: T82.510A Breakdown (mechanical) of surgically created arteriovenous fistula, initial encounter (principal); I63.9 Cerebral infarction, unspecified; G93.41 Metabolic encephalopathy; N18.6 End stage renal disease; I12.0 Hypertensive chronic kidney disease with stage 5 chronic kidney disease or end stage renal disease; G90.8 Other disorders of autonomic nervous system; Z99.2 Dependence on renal dialysis; E11.65 Type 2 diabetes mellitus with hyperglycemia; I95.1 Orthostatic hypotension; E11.22 Type 2 diabetes mellitus with diabetic chronic kidney disease; Y71.2 Prosthetic and other implants, materials and accessory cardiovascular devices associated with adverse incidents; Z79.84 Long term (current) use of oral hypoglycemic drugs; E87.8 Other disorders of electrolyte and fluid balance, not elsewhere classified; D63.8 Anemia in other chronic diseases classified elsewhere; E87.5 Hyperkalemia; Z83.3 Family history of diabetes mellitus
CPT/HCPCS: 36415; 70450-TC; 71045-TC; 80048-TC; 80061-TC; 80076-TC; 80305; 81000-TC; 82140-TC; 82962-TC; 83735-TC; 84100-TC; 84443-TC; 84484-TC; 85025-TC; 85730-TC; 86706; 86850-TC; 87081-TC; 87086-TC; 87340; 90935-TC; 93307-TC; 93880-TC; A4216; A6403; C1750; G0378; J1815; J2150; J2405; P9047

== ENCOUNTER 2020-06-02 16:29 | Inpatient (IN) | payer MEDICARE, OTHER ==
[~2020-06-02] VITALS: Ht 165.1 cm; Wt 62.1 kg
[~2020-06-02 16:29] MED LIST changes: +AMLO5TAB9 GT; -AMLO5TAB9 PO; -ASPI-1169 PO; +ASPI-1420 PO; -AZIT250T PO; +CARV3.122 GT; -CARV3.122 PO; -LINA5TAB PO; +NIFE90TA38 PO; +SEVE800T7 GT; +[UNRECOGNIZED DRUG - CODE] IV
[2020-06-02] MEDS ORDERED: IV NS 0.9% 500 ML BAG IV ONE ×2 (18:30→19:30)
[2020-06-02 18:46] LABS: CALCIUM, SERUM 8.9 mg/dL (8.5-10.1); CREATININE 1.7 mg/dL (0.6-1.3); POTASSIUM 3.1 mmol/L (3.5-5.1)
[2020-06-02 18:52] LABS: BILIRUBIN,DIRECT 0.1 mg/dL (0.0-0.2); BILIRUBIN,TOTAL 0.4 mg/dL (0.2-1.0); TOTAL PROTEIN, SERUM 7.2 g/dL (6.4-8.2)
[2020-06-02] MEDS ORDERED: ACETAMINOPHEN 650 MG/SUPP.RECT RC ONE ×2 (19:18→19:30)
[2020-06-02] MEDS ORDERED: VANCOMYCIN 1 GM in IV D5W 250 ML IV ONE (19:30)
[2020-06-02] MEDS ORDERED: CEFEPIME 1 GM in IV D5W 50 ML IV ONE (19:30)
[2020-06-02 19:32] LABS: EOSINOPHILS % (AUTO) 0.1 % (0.0-6.0); LYMPHOCYTES # (AUTO) 0.4 /CMM (0.8-4.8); LYMPHOCYTES % (AUTO) 1.7 % (20.0-44.0); MEAN CORPUSCULAR HGB CONC 32 g/dl (31.0-36.0); MEAN CORPUSCULAR VOLUME 101 fL (82-100); MONOCYTES # (AUTO) 0.9 /CMM (0.1-1.30); NEUTROPHILS # (AUTO) 20.6 /CMM (1.8-8.9); NEUTROPHILS % (AUTO) 94.2 % (43.0-81.0); PLATELET COUNT (AUTO) 323 /CMM (150-450); WHITE BLOOD COUNT (AUTO) 21.9 K/uL (4.3-11.0)
--- NOTE | 2020-06-02 19:35 | NUR ---
FEVER, TACHYCARDIA, AND LOW HEMOGLOBIN. PT NONVERBAL, RR EVEN & UNLABORED. PT SEEN & EVAL'D BY DR. VILALTORO. PLACED ON SHOP SUPERINTENDENT, SR. MEDICATED ORDERED. WILL CONT TO MONITOR.
[2020-06-02] MEDS ORDERED: FAMO20TA8 GT (19:43)
[2020-06-02] MEDS ORDERED: DOCU-141 GT (19:43)
[2020-06-02] MEDS ORDERED: LEVE100S GT (19:43)
[2020-06-02] MEDS ORDERED: CLON0.1T GT (19:43)
[2020-06-02] MEDS ORDERED: ACID1TAB12 GT (19:43)
[2020-06-02] MEDS ORDERED: ATOR40TA GT (19:43)
[2020-06-02] MEDS ORDERED: MIDO10TA GT (19:43)
[2020-06-02] MEDS ORDERED: ACET-868 GT (19:43)
[2020-06-02] MEDS ORDERED: DILT30TA14 GT (19:43)
[2020-06-02] MEDS ORDERED: HEPA50008 SQ (19:43)
[2020-06-02] MEDS ORDERED: ASCO-352 GT (19:43)
[2020-06-02] MEDS ORDERED: TRAM50TA2 GT (19:43)
[2020-06-02] MEDS ORDERED: THIA100T68 GT (19:43)
[2020-06-02] MEDS ORDERED: INSU100V3 SQ (19:43)
[2020-06-02] MEDS ORDERED: CAPT50TA3 GT (19:43)
[2020-06-02] MEDS ORDERED: POLY15DR40 EACHEYE (19:43)
[2020-06-02] MEDS ORDERED: AMIN30LI27 GT (19:43)
[2020-06-02 20:04] LABS: RED BLOOD CELL COUNT(AUTO) 1.99 MIL/uL (4.0-5.2)
[2020-06-02 20:05] LABS: HEMATOCRIT 20 % (33-45); HEMOGLOBIN 6.3 g/dL (11.5-14.8)
[2020-06-02 20:08] LABS: APPEARANCE,URINE CLOUDY (CLEAR); COLOR,URINE OTHER (YELLOW)
[2020-06-02 20:10] LABS: PROTEIN,URINE 3+ mg/dl (NEGATIVE)
[2020-06-02 20:11] LABS: BILIRUBIN,URINE NEGATIVE (NEGATIVE); BLOOD, URINE 3+ Ery/uL (NEGATIVE); KETONES,URINE NEGATIVE (NEGATIVE); LEUKOCYTE ESTERASE ,URINE 3+ (NEGATIVE); NITRITE, URINE NEGATIVE (NEGATIVE); UGLUCOSE NEGATIVE (NEGATIVE); UROBILINOGEN,URINE 0.2 EU/dL (0.2)
--- NOTE | 2020-06-02 20:11 | NUR ---
BED ASSIGNMENT 202
[2020-06-02 20:24] LABS: BACTERIA,URINE 4+ /HPF (None Seen); RBC,URINE 51-80 /HPF (0-2); SQUAMOUS EPITHELIAL CELL,UR 0-2 /HPF (None Seen); WBC,URINE TOO NUMEROUS TO COUN /HPF (0-3)
[2020-06-02] MEDS ORDERED: Z GUARD REMEDY 2 OZ OINT TP PRN (21:00)
[2020-06-02] MEDS ORDERED: MIDODRINE HCL (5MG) 5 MG TABLET PO PRN (21:00)
[2020-06-02] MEDS ORDERED: MAG HYDROX/AL HYDROX/SIMETH 30 ML UDC PO PRN (21:00)
[2020-06-02] MEDS ORDERED: MAGNESIUM HYDROXIDE 30 ML UDC PO PRN (21:00)
[2020-06-02 21:12] LABS: BAND % (MANUAL) 3 % (0.0-5.0); LYMPHOCYTES % (MANUAL) 17 % (16-48); MONOCYTES % (MANUAL) 3 % (0-11.0); NEUTROPHILS % (MANUAL) 77 (42-76)
--- NOTE | 2020-06-02 22:06 | NUR ---
REPORT GIVEN TO MOMO BARNES FOR LASHANDA.
[2020-06-02 22:25] VITALS: BP 128/59
[2020-06-02 22:38] VITALS: BP 128/59
--- NOTE | 2020-06-02 23:30 | NUR ---
CDL FLATBED TRUCK DRIVER ADMITTING RECEIVE PT IN VIA JONATAN FROM [facility] AT 2225 PT PORTEX 8 5LPM HUMIDIFIED OXYGEN STABLE AND NOT IN DISTRESS NON VERBAL OPEN EYES, ADMIT TO TELEMETRY, HEAD TO TOE ASSESSMENT IS DONE RIGHT SUBCLAVIAN DIALYSIS CATH SITE INTACT WITH NO S/S OF INFECTION NOTED NO ERYTHEMA, SWELLING, PAIN AND NO S/S OF BLEEDING DRESSING CLEAN, INTACT. SEIZURE PRECAUTION. TRACH SITE INTACT WITH NO S/S OF REDNESS, BLEEDING AND ERYTHEMA, SKIN INTACT. GT TUBE SITE CLEAN AND SKIN INTACT NO SKIN BREAKDOWN SURROUND PHOTO TAKEN AND ATTACH TO CHART. GOOD SKIN CARE AT ALL TIMES. KEPT CLEAN, DRY AND COMFORTABLE. SAFETY MEASURES AT ALL TIMES. WILL CONT TO MONITOR
--- NOTE | 2020-06-02 23:36 | NUR ---
JONNY Bates [employer]ANCE [employer] FOLLOW UP FEEDING OF THE PT AND TRANSFUSION 1 PRBC
--- NOTE | 2020-06-02 23:38 | NUR ---
PAGED MULTIPLE TIMES NO ANSWER
--- NOTE | 2020-06-02 23:41 | NUR ---
CALLED TOMMY LEVY OBTAIN CONSENT FOR BLOOD TRANSFUSION 1 PRBC WITNESS BY 1 RN
[2020-06-03] VITALS (13 sets, daily range): BP systolic 118–141; BP diastolic 41–73
--- NOTE | 2020-06-03 00:11 | NUR ---
DR. SEAR GROVER CALLED BACK ORDER TO TRANSFUSE 1 PRBC AND H/H TO CONTINUE FEEDING NEPHRO @ 45ML/HR AND NO REPLACEMENT OF POTASSIUM AT THIS TIME. Paulo WILLIAM RECENT POTASSIUM Addendum: 06/03/20 at 0411 by CAMERON SCOTT RN H/H AT MORNING ROUTINE LABS
--- NOTE | 2020-06-03 00:17 | NUR ---
RT NOTE RECEIVED PATIENT TRACHED ON 5L T-BAR. TITRATED FLOW DOWN TO 3L WITH BUBBLE HUMIDIFIER SAT 98% HR 61. NO SIGNS OF RESPIRATORY DISTRESS AT THIS TIME. WILL CONTINUE TO MONITOR PATIENT. Addendum: 06/03/20 at 0020 by DALTON CIFUENTES RT Amended: Links added.
--- NOTE | 2020-06-03 00:30 | NUR ---
Leadless pacemaker over the heart. PER CHEST XRAY
--- NOTE | 2020-06-03 01:08 | NUR ---
JONNY HOSPITALIST SPOKE TO DR. GROVER OBTAIN ORDERS OF ACHS SLIDING SCALE R HUMALDEN MILD SLIDING SCALE READ BACK AND VERIFIED NOTED AND CARRIED OUT
[2020-06-03] MEDS: ATORVASTATIN 40 MG TABLET GT SCH ×2 (01:29→20:25)
[2020-06-03] MEDS: LEVETIRACETAM SOL (5 ML) 100 MG/ML UDC GT SCH ×3 (01:29→20:25)
[2020-06-03] MEDS ORDERED: DEXTROSE 50%-WATER 50 ML DISP.SYRIN IV PRN (01:30)
--- NOTE | 2020-06-03 03:28 | NUR ---
S/P BLOOD TRANSFUSION NO A/R NOTED`
--- NOTE | 2020-06-03 06:20 | NUR ---
CHILD DEVELOPMENT ASSISTANT MONITORED ACCORDINGLY, PORTEX 8 3LPM HUMIDIFIED OXYGEN STABLE. 02 SAT 100%. SR 70 WITH PAC TELE MONITOR, CONTINUOS SP02 MONITOR AT BEDSIDE, NO SEIZURE ACTIVITY, RIGHT SUBCLAVIAN DIALYSIS CATH SITE INTACT WITH NO S/S OF INFECTION NOTED NO ERYTHEMA, SWELLING, PAIN AND NO S/S OF BLEEDING DRESSING CLEAN, INTACT. TRACH SITE INTACT WITH NO S/S OF REDNESS, BLEEDING AND ERYTHEMA, AM CARE RENDERED, NURSING CARE RENDERED, KEPT CLEAN, DRY AND COMFORTABLE. ASSISTED REPOSITION EVERY 2 HOURS. GT FEEDING TOLERATED WELL. NO RESIDUAL. WOUND CARE CONSULT. SAFETY MEASURES AT ALL TIMES. ENDORSE PLAN OF CARE.
[2020-06-03] MEDS: INSULIN REGULAR, HUMAN 100 UNIT/ML 3 ML VIAL SQ PRN ×4 (07:04→21:12)
[2020-06-03] MEDS: BLOOD SUGAR DIAGNOSTIC 1 EACH STRIP IN SCH ×4 (07:04→21:07)
[2020-06-03] MEDS ORDERED: NEPRO 1,000 ML BOTTLE GT PRN ×2 (07:38)
--- NOTE | 2020-06-03 08:00 | NUR ---
CHILD NUTRITION MANAGER OPENING NOTES Received Patient resting in bed. Non-verbal, responsive to name and touch. VS stable with no acute distress. Breathing even and unlabored on 3LPM via Trach with no respiratory distress. Denies pain. No signs and symptoms of pain. Gtube in place and patent with Nephro infusing at 45ml/hr. 20g PIV on left hand, intact, patent and flushing well. Hernandez Cath in place and patent. Safety precautions in place. Bed locked and set to lowest position with side rails x 2 up. All needs rendered at this time. Call light within reach. Will continue to monitor.
[2020-06-03] MEDS: ACIDOPHILUS/BULGARICUS 1 EACH TAB.CHEW GT SCH (08:10)
[2020-06-03] MEDS: ASCORBIC ACID 500 MG TABLET GT SCH ×3 (08:11→16:30)
[2020-06-03] MEDS: DOCUSATE SODIUM 100 MG CAPSULE PO SCH (08:11)
[2020-06-03] MEDS: THIAMINE HCL 100 MG TABLET GT SCH (08:11)
[2020-06-03] MEDS: FAMOTIDINE (20 MG) 20 MG TABLET GT SCH (08:12)
[2020-06-03] MEDS ORDERED: SEVELAMER CARBONATE 800 MG TABLET PO SCH (09:00)
[2020-06-03] MEDS: ACETAMINOPHEN 325 MG TABLET PO PRN (09:22)
[2020-06-03] MEDS ORDERED: POTASSIUM CHLORIDE 20 MEQ TAB.PRT.SR PO ONE (10:30)
--- NOTE | 2020-06-03 11:00 | NUR ---
WOUND CARE CONSULT: REVIEWED CHART, NURSING DOCUMENTATION AND PHOTOS WHICH INDICATE SACRAL SCARRING AND MULTIPLE FOOT WOUNDS, PRESENT ON ADMISSION. RECOMMEND DPM CONSULT. DR GABRIEL NOTIFIED OF CONSULT REQUEST. PT IS ON LEANDRA ISOFLEX LOW AIRLOSS BED. RECOMMENDATIONS MADE FOR SKIN PROTECTION. DISCUSSED WITH NURSING STAFF. WILL SEE PRN. BIGGS IN AGREEMENT WITH PLAN OF CARE.
[2020-06-03] MEDS ORDERED: POTASSIUM CHLORIDE 20 MEQ POWDER PACKET GT ONE (11:30)
[2020-06-03] MEDS ORDERED: SEVELAMER CARBONATE 800 MG POWD.PACK GT SCH ×3 (13:00→17:00)
[2020-06-03 13:55] LABS: BASOPHILS % (AUTO) 0.2 % (0.0-2.0); EOSINOPHILS % (AUTO) 0.1 % (0.0-6.0); HEMATOCRIT 24 % (33-45); HEMOGLOBIN 7.6 g/dL (11.5-14.8); LYMPHOCYTES # (AUTO) 0.5 /CMM (0.8-4.8); LYMPHOCYTES % (AUTO) 2.2 % (20.0-44.0); MEAN CORPUSCULAR HGB CONC 32 g/dl (31.0-36.0); MEAN CORPUSCULAR VOLUME 100 fL (82-100); MONOCYTES # (AUTO) 1.1 /CMM (0.1-1.30); MONOCYTES % (AUTO) 4.9 % (2.0-12.0); NEUTROPHILS # (AUTO) 20.7 /CMM (1.8-8.9); NEUTROPHILS % (AUTO) 92.6 % (43.0-81.0); PLATELET COUNT (AUTO) 350 /CMM (150-450); RED BLOOD CELL COUNT(AUTO) 2.44 MIL/uL (4.0-5.2); WHITE BLOOD COUNT (AUTO) 22.4 K/uL (4.3-11.0)
[2020-06-03 14:14] LABS: CALCIUM, SERUM 8.6 mg/dL (8.5-10.1); CREATININE 2.8 mg/dL (0.6-1.3); MAGNESIUM 2.3 mg/dL (1.8-2.4); PHOSPHORUS 1.6 mg/dL (2.5-4.9)
[2020-06-03] MEDS: NEUTRA PHOS 1 POWD.PACKET NG SCH (16:30)
[2020-06-03 16:32] LABS: BAND % (MANUAL) 2 % (0.0-5.0); LYMPHOCYTES % (MANUAL) 6 % (16-48); MONOCYTES % (MANUAL) 1 % (0-11.0); NEUTROPHILS % (MANUAL) 91 (42-76)
--- NOTE | 2020-06-03 18:24 | NUR ---
COSMETICIAN CLOSING NOTES Patient resting in bed. Non-verbal, responsive to name and touch. VS stable with no acute distress. Breathing even and unlabored on 3LPM via Trach with no respiratory distress. Noted productive cough. Denies pain. No signs and symptoms of pain. Gtube in place and patent with Nephro infusing at 45ml/hr. 20g PIV on left hand, intact, patent and flushing well. Hernandez Cath in place and patent. Safety precautions in place. Bed locked and set to lowest position with side rails x 2 up. All needs rendered at this time. Call light within reach. Will endorse plan of care to oncoming shift.
--- NOTE | 2020-06-03 19:52 | NUR ---
RT NOTE RECEIVED PATIENT TRACHED ON T-BAR. SAT 99% HR 63. NO SIGNS OF RESPIRATORY DISTRESS AT THIS TIME. WILL CONTINUE TO MONITOR T/O SHIFT.
--- NOTE | 2020-06-03 19:52 | NUR ---
received in bed pulse ox cont on sat reads 99% resp even and unlabored skin warm and dry arterial/venous doppler tech here dressings carlos enrique feet CDI
[2020-06-03] MEDS: CEFEPIME 1 GM in IV D5W 50 ML IV SCH (20:25)
[2020-06-04] VITALS: BP 136/49
[2020-06-04] MEDS: ACETAMINOPHEN 325 MG TABLET PO PRN (01:30)
--- NOTE | 2020-06-04 01:45 | NUR ---
client has a temperature of 100.5. Tylenol has been given, in addition to cooling measures implemented. Will continue to monitor.
[2020-06-04] MEDS: NEPRO 1,000 ML BOTTLE GT PRN (03:50)
[2020-06-04 04:00] VITALS: BP 138/49
[2020-06-04 06:34] LABS: BASOPHILS # (AUTO) 0.1 /CMM (0.0-0.2); BASOPHILS % (AUTO) 0.2 % (0.0-2.0); EOSINOPHILS % (AUTO) 0.1 % (0.0-6.0); HEMATOCRIT 24 % (33-45); HEMOGLOBIN 7.8 g/dL (11.5-14.8); LYMPHOCYTES # (AUTO) 0.8 /CMM (0.8-4.8); LYMPHOCYTES % (AUTO) 3.2 % (20.0-44.0); MEAN CORPUSCULAR HGB CONC 32 g/dl (31.0-36.0); MEAN CORPUSCULAR VOLUME 100 fL (82-100); MONOCYTES % (AUTO) 4.2 % (2.0-12.0); NEUTROPHILS # (AUTO) 22.3 /CMM (1.8-8.9); NEUTROPHILS % (AUTO) 92.3 % (43.0-81.0); PLATELET COUNT (AUTO) 378 /CMM (150-450); RED BLOOD CELL COUNT(AUTO) 2.45 MIL/uL (4.0-5.2); WHITE BLOOD COUNT (AUTO) 24.2 K/uL (4.3-11.0)
--- NOTE | 2020-06-04 06:58 | NUR ---
RN CLOSING NOTES Patient IS resting in bed. Non-verbal, responsive to name and touch. VS stable with no acute distress. Breathing even and unlabored on 3LPM viA T piece with no respiratory distress. Denies pain. No signs and symptoms of pain. Gtube in place and patent with Nephro infusing at 45ml/hr. 20g PIV on left hand, intact, patent and flushing well. Hernandez Cath in place and patent. Safety precautions in place. Bed locked and set to lowest position with side rails x 2 up. All needs rendered at this time. Call light within reach. Will endorse the incoming shift.
[2020-06-04 07:23] LABS: CALCIUM, SERUM 8.6 mg/dL (8.5-10.1); CREATININE 3.8 mg/dL (0.6-1.3); MAGNESIUM 2.7 mg/dL (1.8-2.4); PHOSPHORUS 1.9 mg/dL (2.5-4.9); POTASSIUM 3.9 mmol/L (3.5-5.1)
[2020-06-04] MEDS: THIAMINE HCL 100 MG TABLET GT SCH (08:23)
[2020-06-04] MEDS: LEVETIRACETAM SOL (5 ML) 100 MG/ML UDC GT SCH ×2 (08:23→22:09)
[2020-06-04] MEDS: FAMOTIDINE (20 MG) 20 MG TABLET GT SCH (08:23)
[2020-06-04] MEDS: ACIDOPHILUS/BULGARICUS 1 EACH TAB.CHEW GT SCH (08:23)
[2020-06-04] MEDS: DOCUSATE SODIUM 100 MG CAPSULE PO SCH (08:23)
[2020-06-04] MEDS: ASCORBIC ACID 500 MG TABLET GT SCH ×3 (08:24→17:23)
[2020-06-04] MEDS: BLOOD SUGAR DIAGNOSTIC 1 EACH STRIP IN SCH ×4 (08:24→22:09)
[2020-06-04] MEDS: INSULIN REGULAR, HUMAN 100 UNIT/ML 3 ML VIAL SQ PRN ×4 (08:31→22:08)
[2020-06-04] MEDS: NEUTRA PHOS 1 POWD.PACKET NG SCH (08:34)
[2020-06-04 13:00] VITALS: BP 144/46
[2020-06-04] MEDS ORDERED: EPOETIN ALFA (10,000 UNIT) 10,000 UNIT/ML VIAL IV ONE (15:00)
[2020-06-04 17:00] VITALS: BP 155/40
--- NOTE | 2020-06-04 19:00 | NUR ---
PRESS CUTTER CLOSING NOTES Patient resting in bed. Non-verbal, responsive to name and touch. VS stable with no acute distress. Breathing even and unlabored on 3LPM viA T piece with no respiratory distress. Denies pain. No signs and symptoms of pain. Gtube in place and patent with Nephro gt feeding at 45ml/hr. off at 11 am, on at 1700. 20g PIV on left hand, intact, patent and flushing well. Hernandez Cath in place and patent. 200 ml out put. Safety precautions in place. Bed locked and set to lowest position with side rails x 2 up. All needs rendered at this time. Call light within reach. will endorse to next shift. ongoing hemodialysis. all needs met at this time.
--- NOTE | 2020-06-04 19:05 | NUR ---
SALES REPRESENTATIVE [employer] OPENING NOTES: RECEIVED PATIENT IN BED. NO S/S OF DISTRESS NOTED. BED IN LOWEST AND LOCKED POSITION. HOB ELEVATED AT 35 DEGREES AT ALL TIMES. DIALYSIS JUST FINISHED RIGHT NOW WITH 2,500 OUTPUT. WITH WESLEY CATHETER INTACT WITH MINIMAL OUTPUT OF CLARA COLORED URINE. WITH TF OFF AT THIS TIME, WILL BE TURNED ON AT 2100 TONIGHT.
--- NOTE | 2020-06-04 20:06 | NUR ---
with tracheoustomy tube intact, dressing is clean,dry and intact, suctioned. with GT INTACT, WITH SMALL AMOUNT OF YELLOWISH EXUDATE ON THE GT SITE, DRESSING CHANGED. GT FEEDING IS OFF AT THIS TIME, FLUSHED WITH 60ML WATER AND CLAMPED. PATIENT'S LOWER LEGS ARE CONTRACTED
[2020-06-04] MEDS: VANCOMYCIN POST DIALYSIS 500MG IV PRN ×2 (20:26)
[2020-06-04 21:00] VITALS: BP 133/48
--- NOTE | 2020-06-04 21:00 | NUR ---
GT FEEDING NEPRO STARTED AT 45ML/HOUR. NO RESIDUAL NOTED. HOB ELEVATED AT ALL TIMES. ORAL AND TRACH SUCTIONED.
[2020-06-04] MEDS: ATORVASTATIN 40 MG TABLET GT SCH (22:08)
[2020-06-04] MEDS: CEFEPIME 1 GM in IV D5W 50 ML IV SCH (22:09)
[2020-06-05] VITALS (7 sets, daily range): BP systolic 114–151; BP diastolic 38–82
--- NOTE | 2020-06-05 02:47 | NUR ---
WOUND TREATMENTS DONE: SACRAL SCAR-MEPILEX APPLIED.OFFLOADED AND TURNED AND REPOSITIONED. RIGHT LATERAL, PLANTAR MIDFOOT,HEEL ULCER-BETADINE GAUZE OVER THE WOUND AND COVERED WITH DRY DRESSING.OFFLOADED. LEFT LATERAL MIDFOOT ULCER,LEFT LATERAL 5TH METATARSAL HEAD ULCER, LEFT MEDIAL 1ST METATARSAL HEAD ULCER,LEFT MEDIAL HEEL ULCER- BETADINE GAUZE APPLIED OVER THE WOUND AND COVERED WITH DRY DRESSING,OFFLOADED.
--- NOTE | 2020-06-05 03:01 | NUR ---
WITH VERY LITTLE RASHES ON THE LEFT BREAST FOLD NOTED, CLEANSED WITH SOAP AND WATER, PAT DRY. RIGHT ARM SCAB NOTED.
--- NOTE | 2020-06-05 06:15 | NUR ---
HEALTHCARE ECONOMICS CONSULTANT CLOSING NOTES: PATIENT IN BED, ASLEEP,AROUSABLE. HOB ELEVATED AT ALL TIMES. BED ALARM ON, BED IN LOWEST AND LOCKED POSITION. NO S/S OF DISTRESS NOTED. NOT IN PAIN. TURNED AND REPOSITIONED. TRACH SUCTIONED. AFEBRILE.
--- NOTE | 2020-06-05 07:45 | NUR ---
UNION LABORER NOTES ALEX ELIZABETH REPORTED TEMP 100.5, ADMINISTERED TYLENOL ORDERED, WILL CONT TO MONITOR
[2020-06-05] MEDS: ACETAMINOPHEN 325 MG TABLET PO PRN ×2 (07:47→20:47)
[2020-06-05] MEDS: BLOOD SUGAR DIAGNOSTIC 1 EACH STRIP IN SCH ×4 (07:52→21:05)
[2020-06-05] MEDS: INSULIN REGULAR, HUMAN 100 UNIT/ML 3 ML VIAL SQ PRN ×4 (07:54→21:19)
--- NOTE | 2020-06-05 07:55 | NUR ---
ASSISTANT TO THE PRESIDENT OPENING NOTES RECEIVED PT ON BED, NON VERBAL, ON T-PIECE 5LPM. RESPIRATION EVEN AND NON LABORED WITH NO ACUTE RESPIRATORY DISTRESS. ABD SOFT AND NON DISTENDED WITH ACTIVE BOWEL SOUNDS,INCONTINENT, G-TUBE IN PLACE, 0 ML RESIDUAL, POSITIVE PLACEMENT THROUGH AUSCULTATION, RUNNING NEPRO 45 ML/HR HERBIE WELL. NO S/SX OF PAIN AND DISCOMFORT. SKIN WARM TO TOUCH AN DRY, BLE OFFLOAD, IV SITE AT LEFT HAND, NO S/S OF INFILTRATION, PATENT IN FLUSHING. BED IN LOW LOCKED POSITION, SRX2 UP FOR SAFETY, BED ALARM ON. ON FC WITH DARK YELLOW CLOUDY URIN, LAST OUTPUT 20 ML. TELE MONITOR SHOWS SINUS RHYTHM WITH PVC AND PAC EPISODES. WILL CONTINUE TO MONITOR CARE
[2020-06-05 08:27] LABS: BASOPHILS % (AUTO) 0.2 % (0.0-2.0); EOSINOPHILS % (AUTO) 0.3 % (0.0-6.0); HEMATOCRIT 26 % (33-45); HEMOGLOBIN 8.2 g/dL (11.5-14.8); LYMPHOCYTES # (AUTO) 0.5 /CMM (0.8-4.8); LYMPHOCYTES % (AUTO) 1.9 % (20.0-44.0); MEAN CORPUSCULAR HGB CONC 32 g/dl (31.0-36.0); MEAN CORPUSCULAR VOLUME 99 fL (82-100); MONOCYTES # (AUTO) 0.9 /CMM (0.1-1.30); MONOCYTES % (AUTO) 3.3 % (2.0-12.0); NEUTROPHILS # (AUTO) 25.9 /CMM (1.8-8.9); NEUTROPHILS % (AUTO) 94.3 % (43.0-81.0); PLATELET COUNT (AUTO) 388 /CMM (150-450); WHITE BLOOD COUNT (AUTO) 27.5 K/uL (4.3-11.0)
[2020-06-05] MEDS: LEVETIRACETAM SOL (5 ML) 100 MG/ML UDC GT SCH ×2 (08:36→20:47)
[2020-06-05] MEDS: THIAMINE HCL 100 MG TABLET GT SCH (08:36)
[2020-06-05] MEDS: ASCORBIC ACID 500 MG TABLET GT SCH ×3 (08:36→16:03)
[2020-06-05] MEDS: DOCUSATE SODIUM 100 MG CAPSULE PO SCH (08:36)
[2020-06-05] MEDS: ACIDOPHILUS/BULGARICUS 1 EACH TAB.CHEW GT SCH (08:36)
[2020-06-05] MEDS: FAMOTIDINE (20 MG) 20 MG TABLET GT SCH (08:36)
[2020-06-05] MEDS: NEUTRA PHOS 1 POWD.PACKET NG SCH (08:36)
--- NOTE | 2020-06-05 08:45 | NUR ---
PEDIATRIC CRITICAL CARE NURSE NOTES RE-CHECK TEMP 100.8F. COOLING MEASURE PROVIDED, CHANGE ROOM TEMP, CONT TO MONITOR
[2020-06-05 08:47] LABS: CREATININE 3.3 mg/dL (0.6-1.3); MAGNESIUM 2.5 mg/dL (1.8-2.4); PHOSPHORUS 2.1 mg/dL (2.5-4.9); POTASSIUM 3.8 mmol/L (3.5-5.1)
--- NOTE | 2020-06-05 09:03 | NUR ---
EFFICIENCY CLERK NOTES DR. JACKSON CALLED, REPORT GIVEN OVER THE SECURED PHONE. NEW ORDER OBTAINED FOR CT HEAD WO CONTRAST. ORDER READ BACK, NOTED AND CARRIED OUT.
--- NOTE | 2020-06-05 09:30 | NUR ---
DIRECTOR EMERGENCY SERVICES NOTES TEMP RE-CHECKED 98.9F. TO PERFORM SPONGE BATH TO PT. WILL CONT TO MONITOR
--- NOTE | 2020-06-05 13:04 | NUR ---
DEPUTY SHERIFF K9 HANDLER NOTES PT SEEN AND EVAL BY DR. JACKSON, FF UP CT SCAN ORDERED. TO CALL MD ONCE RESULT IS IN.
--- NOTE | 2020-06-05 14:10 | NUR ---
AIR TUCKER NOTES PT PICKED UP FOR CT HEAD WO CONTRAST.
--- NOTE | 2020-06-05 14:30 | NUR ---
ANIMAL RIDE ATTENDANT NOTES PT CAME BACK, POST CT SCAN
[2020-06-05] MEDS ORDERED: DOSING PER PHARMACY-AMIKACI IV XX PRN (17:00)
--- NOTE | 2020-06-05 17:20 | NUR ---
HAND LASTER NOTES CALLED PHARMACY REGARDING METRONIDAZOLE AND AMIKACIN ATB DUE AT 6PM. EXPLAINED THAT PT HAS ONLY 1 SITE AND PER MICROMEDEX BOTH ATB WITH SEVERE CONTRAINDICATION. PER STAFF, SHE WILL SEND THE METRONIDAZOLE TO BE ADMINISTERED THEN AMIKACIN AFTER.
[2020-06-05] MEDS ORDERED: AMIKACIN 400 MG in IV D5W 100 ML IV ONE (18:00)
[2020-06-05] MEDS: METRONIDAZOLE 500MG/ NS 100ML 500 MG in PREMIX 1 EA IV SCH (18:01)
--- NOTE | 2020-06-05 18:05 | NUR ---
IT SECURITY PROJECT MANAGER NOTES METRONIDAZOLE PICKED UP FROM THE PHARMACY, ADMINISTERED ORDERED
--- NOTE | 2020-06-05 18:45 | NUR ---
ROLL TESTER CLOSING NOTES PT NON VERBAL. ASSESSED NO PRESENCE OF ACUTE RESPIRATORY DISTRESS, ON T PIECE 5LPM. ABD SOFT AND NON DISTENDED, BM X2, FC WITH 50 ML OUTPUT, WITH SEDIMENTS CLOUDY BROWN IN COLOR. G-TUBE SITE CLEAN WITH 0 ML RESIDUAL, IN PLACE UPON ASSESSMENT. FLACC-0. TX PROVIDED ORDERED, BLE OFFLOAD, REPOSITION Q2H. IV SITE AT LEFT HAND #20 PATENT IN FLUSHING H/L. BED IN LOW LOCKED POSITION, SRX2 UP FOR SAFETY, BED ALARM ON. TELE MONITOR SHOWS SINUS RHYTHM WITH PVC PAC. RESTRAINT HELD, PT CALM. ENDORSED CARE TO NEXT SHIFT. Addendum: 06/05/20 at 1849 by BOBY POTTER RN ROLL TESTER CLOSING NOTES PT NON VERBAL. ASSESSED NO PRESENCE OF ACUTE RESPIRATORY DISTRESS, ON T PIECE 5LPM. ABD SOFT AND NON DISTENDED, BM X2, FC WITH 50 ML OUTPUT, WITH SEDIMENTS CLOUDY BROWN IN COLOR. G-TUBE SITE CLEAN WITH 0 ML RESIDUAL, IN PLACE UPON ASSESSMENT. FLACC-0. TX PROVIDED ORDERED, BLE OFFLOAD, REPOSITION Q2H. IV SITE AT LEFT HAND #20 PATENT IN FLUSHING H/L. BED IN LOW LOCKED POSITION, SRX2 UP FOR SAFETY, BED ALARM ON. TELE MONITOR SHOWS SINUS RHYTHM WITH PVC PAC. ENDORSED CARE TO NEXT SHIFT.
--- NOTE | 2020-06-05 19:30 | NUR ---
telegraph messenger opening note received patient in bed. patient is nonverbal. on oxygen 5l/min via t-piece. respirations are even and unlabored no s/s sob noted. no s/s pain at this time. external tele monitor reads sinus rhythm hr 64 with PAC and PVC. in no apparent distress. iv access in left hand #20 patent and saline locked. gtube is present, no residual, will resume feeding at 2100. portillo catheter is presnet, draining to gravity, urine is yellow and cloudy/brown and cloudy. bed is low and locked, hob elevated in semi fowlers, side rails up x2. laurie light within reach. will continue to monitor with robe Flowers RN.
--- NOTE | 2020-06-05 20:00 | NUR ---
DIRECTOR OF LOGISTICS NOTE RECEIVED PT IN BED A/O X0 NONVERBAL. BREATHING EVEN AND UNLABORED ON 6L T-PIECE. NO SOB OR ACUTE DISTRESS NOTED. NO FACIAL GRIMACING NOTED. GTUBE PATENT. GTF NEPRO 45ML/HR INFUSING WELL . TOLERATING WELL. LEFT HAND #20 PATENT AND INTACT. WESLEY CATH IN PLACE. YELLOW URINE WITH SEDIMENTS NOTED. NO FOUL ODOR NOTED.BILATERAL SRX2 UP. BED IN LOWEST POSITION. CALL LIGHT WITHIN REACH. REPOSITIONED AND TURNED. KEPT CLEAN AND DRY. ALL NEEDS RENDERED. WILL CONTINUE TO MONITOR.
[2020-06-05] MEDS: CEFEPIME 1 GM in IV D5W 50 ML IV SCH (20:47)
--- NOTE | 2020-06-05 20:48 | NUR ---
parachute harness rigger note pt noted with 99.9 temp. PRN acetaminophen 650mg given via gtube. Will continue to monitor.
[2020-06-05] MEDS ORDERED: MEROPENEM 1 G in IV NS 0.9% 100 ML IV SCH (21:00)
[2020-06-05] MEDS: ATORVASTATIN 40 MG TABLET GT SCH (21:04)
[2020-06-05] MEDS: NEPRO 1,000 ML BOTTLE GT PRN (21:04)
--- NOTE | 2020-06-05 22:00 | NUR ---
TELE/RN NOTES RECEIVED PATIENT IN BED, LASHANDA REPORTED BY MOMO SCHMITZ.
--- NOTE | 2020-06-05 23:00 | NUR ---
TELE/RN NOTES RECEIVED PATIENT IN BED, CONFUSED, CAN OPEN EYES ON TRAECH T-PIECE AT 5 LITER, NEEDED SUCTION PROVIDED DUE TO MODERATE SECRETIONS, NON VERBAL, WITH LEFT HAND GAUGE 20 HEP LOCK. TO MONITOR.ON GTUBE WITH NO RESIDUAL, WESLEY DRAINING URINE. BED LOCKED, CALL LIGHTS WITHIN REACH.
--- NOTE | 2020-06-05 23:15 | NUR ---
telecommunications clerk note- LASHANDA transfer of care given to Milagro BARR.
[2020-06-06] VITALS: BP 119/66
[2020-06-06] MEDS: METRONIDAZOLE 500MG/ NS 100ML 500 MG in PREMIX 1 EA IV SCH ×3 (01:49→17:52)
[2020-06-06 04:41] VITALS: BP 132/58
--- NOTE | 2020-06-06 06:47 | NUR ---
TELE/R,N NOTES PATIENT NON VERBAL, TELE/RN NOTES PATIENT NON VERBAL, OBTUNDED, ON GTUBE FEEDING,T PIECE,WILL ENDORSE TO AM RN FOR LASHANDA. ATTENDED ALL NEEDS.
[2020-06-06 07:26] LABS: BASOPHILS # (AUTO) 0.1 /CMM (0.0-0.2); BASOPHILS % (AUTO) 0.3 % (0.0-2.0); EOSINOPHILS % (AUTO) 0.9 % (0.0-6.0); HEMATOCRIT 27 % (33-45); HEMOGLOBIN 8.7 g/dL (11.5-14.8); LYMPHOCYTES # (AUTO) 0.7 /CMM (0.8-4.8); LYMPHOCYTES % (AUTO) 2.8 % (20.0-44.0); MEAN CORPUSCULAR HGB CONC 32 g/dl (31.0-36.0); MEAN CORPUSCULAR VOLUME 99 fL (82-100); MONOCYTES # (AUTO) 0.9 /CMM (0.1-1.30); MONOCYTES % (AUTO) 3.4 % (2.0-12.0); NEUTROPHILS # (AUTO) 23.4 /CMM (1.8-8.9); NEUTROPHILS % (AUTO) 92.6 % (43.0-81.0); PLATELET COUNT (AUTO) 408 /CMM (150-450); RED BLOOD CELL COUNT(AUTO) 2.76 MIL/uL (4.0-5.2); WHITE BLOOD COUNT (AUTO) 25.3 K/uL (4.3-11.0)
--- NOTE | 2020-06-06 07:30 | NUR ---
RN OPENING NOTES RECEIVED PATIENT IN BED, CAN OPEN EYES BUT NON VERBAL. ON TRAECH T-PIECE AT 5 LITER, NO CARDIAC OR RESP DISTRESS NOTED. NO SOB NOTED. SATURATING WELL. ON GTUBE FEEDING NO RESIDUALS NOTED. FLUSHED WITH H20. INTACT AND PATENTT. IV ACCESS NOTED ON LEFT HAND GAUGE 20 INTACT AND PATENT AND FLUSHING WELL. HEP LOCK. TO MONITO WESLEY DRAINING URINE HOWEVER VERY MINIMAL URINE. S/P DIALYSIS TODAY 2L TAKEN OUT. S/P LUMBAR PUNCTURE TODAY. SAFETY PRECAUTIONS IN PLACE.. BED LOCKED AND LOW. SIDE RAILS UP X 2., CALL LIGHTS WITHIN REACH.
[2020-06-06] MEDS: BLOOD SUGAR DIAGNOSTIC 1 EACH STRIP IN SCH ×4 (07:51→22:02)
[2020-06-06 08:00] VITALS: BP 124/86
[2020-06-06 08:03] LABS: CALCIUM, SERUM 9.1 mg/dL (8.5-10.1); CREATININE 4.4 mg/dL (0.6-1.3); PHOSPHORUS 2.8 mg/dL (2.5-4.9); POTASSIUM 4.1 mmol/L (3.5-5.1)
[2020-06-06] MEDS: ASCORBIC ACID 500 MG TABLET GT SCH ×3 (08:13→16:06)
[2020-06-06] MEDS: THIAMINE HCL 100 MG TABLET GT SCH (08:13)
[2020-06-06] MEDS: FAMOTIDINE (20 MG) 20 MG TABLET GT SCH (08:13)
[2020-06-06] MEDS: DOCUSATE SODIUM 100 MG CAPSULE PO SCH (08:13)
[2020-06-06] MEDS: ACIDOPHILUS/BULGARICUS 1 EACH TAB.CHEW GT SCH (08:13)
[2020-06-06] MEDS: NEUTRA PHOS 1 POWD.PACKET NG SCH (08:13)
[2020-06-06] MEDS: LEVETIRACETAM SOL (5 ML) 100 MG/ML UDC GT SCH ×2 (08:13→20:29)
[2020-06-06] MEDS: HYDROCODONE/APAP 5/325MG TABLET PO PRN ×2 (08:14→16:06)
[2020-06-06] MEDS: CEFEPIME 1 GM in IV D5W 50 ML IV SCH ×2 (08:15→20:30)
[2020-06-06] MEDS: INSULIN REGULAR, HUMAN 100 UNIT/ML 3 ML VIAL SQ PRN ×4 (08:42→22:18)
[2020-06-06] MEDS ORDERED: AMIKACIN 350 MG in IV D5W 100 ML IV PRN (09:00)
--- NOTE | 2020-06-06 09:00 | NUR ---
LUMBAR PUNCTURE OBTAINED CONSENT FROM PTS DAUGHTER TOMMY FOR LUMBAR PUNCTURE PROCEDURE. DAUGHTER GAVE CONSENT. CHARGE NURSE SOON VERIFIED CONSENT.
--- NOTE | 2020-06-06 09:30 | NUR ---
LUMBAR PUNCTURE DR. OCASIO PERFORMED LUMBAR PUNCTURE WITH MY ASSISTANCE BY BEDSIDE. PT TOLERATED PROCEDURE WELL. NO BLEEDING POST PROCEDURE NOTED. CSF COLLECTED. SENT TO LAB FOR CULTURES.
--- NOTE | 2020-06-06 10:30 | NUR ---
LABS NOTIFIED DR. OCASIO REGARDING PTS BUN 90 AND CR 4.4. AND THAT ITS TRENDING UP. ALSO MADE AWARE OF MAG LEVELS AT 3.3.
[2020-06-06 10:32] LABS: CSF GLUCOSE 146 mg/dL (40-70)
[2020-06-06 11:14] LABS: CSF PROTEIN 289.1 mg/dL (15-45)
--- NOTE | 2020-06-06 11:30 | NUR ---
CSF ANALYSIS DR. OCASIO MADE AWARE OF CSF ANALYSIS RESULST AND CSF PROTEIN LEVEL OF 289.1. NNO GIVEN.
[2020-06-06 12:00] VITALS: BP 128/76
[2020-06-06 16:00] VITALS: BP 128/76
[2020-06-06] MEDS: NEPRO 1,000 ML BOTTLE GT PRN ×2 (16:16→16:20)
--- NOTE | 2020-06-06 16:56 | NUR ---
EEG DR JACKSON CALLED. PROVIDED MD WITH PTS CURRENT STATUS. PER MD, ORDER AN EEG. NOTED AND CARRIED OUT.
[2020-06-06] MEDS: VANCOMYCIN POST DIALYSIS 500MG IV PRN ×2 (17:15)
--- NOTE | 2020-06-06 18:10 | NUR ---
EEG\\ Addendum: 06/06/20 at 1810 by JEFE CHANG RN EEG PERFORMED. TECH IS CURRENTLY BY BEDSIDE.
--- NOTE | 2020-06-06 19:00 | NUR ---
RN OPENING NOTE RECEIVED PATIENT IN BED RESTING LETHARGIC,CONFUSED,NON VERBAL ON TELE MONITORING,EYE CLOSED ON T PIECE 5L OXYGEN O2:98% NO SOB NOT ACUTE DISTRESS NOTED,IV SITE IS ON LEFT HAND INTACT PATENT,PERM CATH FOR DIALYSIS ON RIGHT UPPER CHEST INTACT,ON G-TUBE FEEDING CHECKED PLACEMENT IN PLACE NO RESIDUAL NOTED,ON NEPHRO G-TUBE FEEDING 45CC/HR,ON WESLEY CATHETER URINE DRAINING YELLOW AND CLEAR, IMPALEMENT SAFETY MEASURE ,BED LOCKED IN LOW POSITON, HEAD OF BED ELEVATED, CONTINUE TO MONITOR
--- NOTE | 2020-06-06 19:30 | NUR ---
RN CLOSING NOTES PATIENT IN BED, CAN OPEN EYES BUT NON VERBAL. ON TRAECH T-PIECE AT 5 LITER, NO CARDIAC OR RESP DISTRESS NOTED. NO SOB NOTED. SATURATING WELL. ON GTUBE FEEDING NO RESIDUALS NOTED. FLUSHED WITH H20. INTACT AND PATENTT. IV ACCESS NOTED ON LEFT HAND GAUGE 20 INTACT AND PATENT AND FLUSHING WELL. HEP LOCK. WESLEY DRAINING URINE HOWEVER VERY MINIMAL URINE. S/P DIALYSIS TODAY 2L TAKEN OUT. S/P LUMBAR PUNCTURE TODAY. SAFETY PRECAUTIONS IN PLACE.. BED LOCKED AND LOW. SIDE RAILS UP X 2., CALL LIGHTS WITHIN REACH.
[2020-06-06 20:00] VITALS: BP 154/52
[2020-06-06] MEDS: ATORVASTATIN 40 MG TABLET GT SCH (21:28)
[2020-06-07] VITALS: BP 146/44
[2020-06-07] MEDS: ACETAMINOPHEN 325 MG TABLET PO PRN ×2 (01:30→21:15)
--- NOTE | 2020-06-07 01:47 | NUR ---
RN NOTE PATIENT O2 DESATURATED TO 88%-89% CALLED RT FOR ASSIST,INCREASE OXYGEN TO 8L/MIN CONTINUE TO MONITOR
--- NOTE | 2020-06-07 01:49 | NUR ---
PT DESATURATING 87-88%, HR 68 , RR 25, SXN MODERATE SECRETIONS , ABG DONE 7.48 34 86 25 96%, INCREASE FIO2 TO 40% WILL CONTINUE TO MONITOR Addendum: 06/07/20 at 0152 by REJI PURCELL RT Amended: Links added.
[2020-06-07] MEDS: METRONIDAZOLE 500MG/ NS 100ML 500 MG in PREMIX 1 EA IV SCH ×3 (02:04→18:20)
--- NOTE | 2020-06-07 02:12 | NUR ---
RIGHT OF WAY CUTTER NOTE MD ZAMORA ALSO INFORMED THE ABG RESULT, AND RT INCREASED FIO2 TO 40%. O2 SAT 95%
[2020-06-07 04:00] VITALS: BP 129/44
[2020-06-07 06:53] LABS: BASOPHILS # (AUTO) 0.1 /CMM (0.0-0.2); BASOPHILS % (AUTO) 0.4 % (0.0-2.0); EOSINOPHILS % (AUTO) 0.5 % (0.0-6.0); HEMATOCRIT 26 % (33-45); HEMOGLOBIN 8.1 g/dL (11.5-14.8); LYMPHOCYTES # (AUTO) 0.7 /CMM (0.8-4.8); LYMPHOCYTES % (AUTO) 2.8 % (20.0-44.0); MEAN CORPUSCULAR HGB CONC 32 g/dl (31.0-36.0); MEAN CORPUSCULAR VOLUME 100 fL (82-100); MONOCYTES # (AUTO) 0.9 /CMM (0.1-1.30); MONOCYTES % (AUTO) 3.7 % (2.0-12.0); NEUTROPHILS # (AUTO) 23.4 /CMM (1.8-8.9); NEUTROPHILS % (AUTO) 92.6 % (43.0-81.0); PLATELET COUNT (AUTO) 475 /CMM (150-450); RED BLOOD CELL COUNT(AUTO) 2.57 MIL/uL (4.0-5.2); WHITE BLOOD COUNT (AUTO) 25.2 K/uL (4.3-11.0)
--- NOTE | 2020-06-07 07:18 | NUR ---
RN CLOSING NOTE PATIENT REMAINS LETHARGIC NON VERBAL FULL CODE ON TELE MONITORING NO SOB NOT ACUTE DISTRESS,ON 8L OXYGEN ON T PIECE, NOTED ALL DUE MED GIVEN MD ORDERED,KEEP CLEAN AND DRY ALL THE TIME,HEAD OF BED ELEVATED ALL THE TIME ON G-TUBE FEEDING,ENDORSE NEXT COMING SHIFT FOR CONTINUATION OF CARE.
[2020-06-07 07:36] LABS: CALCIUM, SERUM 9.2 mg/dL (8.5-10.1); CREATININE 3.5 mg/dL (0.6-1.3); MAGNESIUM 2.7 mg/dL (1.8-2.4); PHOSPHORUS 2.1 mg/dL (2.5-4.9); POTASSIUM 4.3 mmol/L (3.5-5.1)
[2020-06-07 08:00] VITALS: BP 129/59
[2020-06-07] MEDS: CEFEPIME 1 GM in IV D5W 50 ML IV SCH ×2 (09:00→21:14)
[2020-06-07] MEDS: THIAMINE HCL 100 MG TABLET GT SCH (09:00)
[2020-06-07] MEDS: DOCUSATE SODIUM 100 MG CAPSULE PO SCH (11:05)
[2020-06-07] MEDS: ASCORBIC ACID 500 MG TABLET GT SCH ×3 (11:05→17:00)
[2020-06-07] MEDS: LEVETIRACETAM SOL (5 ML) 100 MG/ML UDC GT SCH ×2 (11:05→21:15)
[2020-06-07] MEDS: ACIDOPHILUS/BULGARICUS 1 EACH TAB.CHEW GT SCH (11:05)
[2020-06-07] MEDS: NEUTRA PHOS 1 POWD.PACKET NG SCH (11:06)
[2020-06-07] MEDS: FAMOTIDINE (20 MG) 20 MG TABLET GT SCH (11:08)
[2020-06-07] MEDS: INSULIN REGULAR, HUMAN 100 UNIT/ML 3 ML VIAL SQ PRN ×2 (11:47→18:17)
[2020-06-07] MEDS ORDERED: DEXTROSE 50%-WATER 50 ML DISP.SYRIN IV PRN (12:30)
[2020-06-07 16:00] VITALS: BP 142/53
[2020-06-07] MEDS: BLOOD SUGAR DIAGNOSTIC 1 EACH STRIP VI SCH ×2 (18:20→21:16)
--- NOTE | 2020-06-07 18:51 | NUR ---
PATIENT IS ALERT AND ORIENTED TO HERSELF. PATIENT REMAINS LETHARGIC NON VERBAL FULL CODE ON TELE MONITORING. PATIENT DOES NOT DISPLAY ANY SIGNS AND SYMPTOMS OF PAIN, DISTRESS, OR SHORTNESS OF BREATH. ALL CARE NEEDS MET. WOUND CARE DONE. HOMEOSTASIS MAINTAINED AT PATIENTS BASELINE. BED IN LOW POSITION. ON 4L OXYGEN ON T PIECE. CALL LIGHT IN REACH. WILL GIVE REPORT TO NIGHT NURSE.
[2020-06-07 20:00] VITALS: BP 152/57
[2020-06-07] MEDS: ATORVASTATIN 40 MG TABLET GT SCH (21:15)
[2020-06-07] MEDS: HEPARIN SODIUM, PORCINE 5000 UNITS/1 ML VIAL SQ SCH (21:16)
[2020-06-07] MEDS: NEPRO 1,000 ML BOTTLE GT PRN (21:17)
[2020-06-07] MEDS: *INSULIN REGULAR(HUMULIN R)HUM 100 UNIT/ML VIAL SQ PRN (21:25)
[2020-06-08] MEDS: METRONIDAZOLE 500MG/ NS 100ML 500 MG in PREMIX 1 EA IV SCH ×3 (01:25→18:10)
[2020-06-08 04:00] VITALS: BP 150/49
[2020-06-08 06:45] LABS: BASOPHILS # (AUTO) 0.1 /CMM (0.0-0.2); BASOPHILS % (AUTO) 0.3 % (0.0-2.0); EOSINOPHILS % (AUTO) 0.8 % (0.0-6.0); HEMATOCRIT 25 % (33-45); HEMOGLOBIN 7.7 g/dL (11.5-14.8); LYMPHOCYTES # (AUTO) 0.6 /CMM (0.8-4.8); LYMPHOCYTES % (AUTO) 2.3 % (20.0-44.0); MEAN CORPUSCULAR HGB CONC 31 g/dl (31.0-36.0); MEAN CORPUSCULAR VOLUME 101 fL (82-100); MONOCYTES % (AUTO) 3.5 % (2.0-12.0); NEUTROPHILS # (AUTO) 25.9 /CMM (1.8-8.9); NEUTROPHILS % (AUTO) 93.1 % (43.0-81.0); PLATELET COUNT (AUTO) 455 /CMM (150-450); RED BLOOD CELL COUNT(AUTO) 2.43 MIL/uL (4.0-5.2); WHITE BLOOD COUNT (AUTO) 27.8 K/uL (4.3-11.0)
--- NOTE | 2020-06-08 06:48 | NUR ---
MS-1/SEED EXPERT DR. WILLIAMSON AT BEDSIDE TO EVALUATE PT. SAID HE WILL CONSULT WITH PODIATRY. NO NEW ORDERS. WILL CONTINUE TO MONITOR.
--- NOTE | 2020-06-08 07:06 | NUR ---
MS RN OPENING NOTE RECEIVED PT AWAKE IN BED AT THIS TIME. ALERT, EYES OPEN, ABLE TO TRACT, NON VERBAL.NO SOB NOTED, NO S/S OF ANY ACUTE DISTRESS NOTED. NO C/O PAIN AT THIS TIME. RESPIRATIONS ARE EVEN AND UNLABORED. PT NOTED WITH TRACH, IV ACCESS NOTED IN LEFT HAND G#20, PATENT, INTACT AND FLUSHING WELL. G-TUBE IN PLACE WITH NO RESIDUAL NOTED, WESLEY CATHETER IN PLACE, DRAINING TO GRAVITY, CLEAR YELLOW URINE OUTPUT. FALL, ASPIRATION AND SAFETY PRECAUTION IN PLACE AND MAINTAINED AT ALL TIMES. BED IN LOWEST LOCKED POSITION, HOB ELEVATED, SIDE RAILS UP X 2, CALL LIGHT WITHIN REACH. WILL CONTINUE TO MONITOR
[2020-06-08 07:38] LABS: CALCIUM, SERUM 9.2 mg/dL (8.5-10.1); MAGNESIUM 3.1 mg/dL (1.8-2.4); PHOSPHORUS 3.1 mg/dL (2.5-4.9); POTASSIUM 4.6 mmol/L (3.5-5.1)
[2020-06-08] MEDS: BLOOD SUGAR DIAGNOSTIC 1 EACH STRIP VI SCH ×4 (08:25→21:29)
[2020-06-08] MEDS: ACETAMINOPHEN 325 MG TABLET PO PRN (08:56)
[2020-06-08] MEDS: ASCORBIC ACID 500 MG TABLET GT SCH ×3 (08:56→17:02)
[2020-06-08] MEDS: DOCUSATE SODIUM 100 MG CAPSULE PO SCH (08:56)
[2020-06-08] MEDS: THIAMINE HCL 100 MG TABLET GT SCH (08:56)
[2020-06-08] MEDS: LEVETIRACETAM SOL (5 ML) 100 MG/ML UDC GT SCH ×2 (08:56→21:32)
[2020-06-08] MEDS: FAMOTIDINE (20 MG) 20 MG TABLET GT SCH (08:56)
[2020-06-08] MEDS: NEUTRA PHOS 1 POWD.PACKET NG SCH (08:57)
--- NOTE | 2020-06-08 09:00 | NUR ---
PT NOTED WITH T OF 99.9. COOLING MEASURES IN PLACE, ROOM KEPT COOL, ICE PACK @ ARMPIT, PT UNCOVER. TYLENOL 650MG PO Q6HRS PRN FOR FEVER ADMINISTERED PER ORDER. WILL CONTINUE TO MONITOR
[2020-06-08] MEDS: ACIDOPHILUS/BULGARICUS 1 EACH TAB.CHEW GT SCH (09:03)
[2020-06-08] MEDS: HEPARIN SODIUM, PORCINE 5000 UNITS/1 ML VIAL SQ SCH ×2 (09:04→21:31)
[2020-06-08] MEDS: *INSULIN REGULAR(HUMULIN R)HUM 100 UNIT/ML VIAL SQ PRN ×2 (09:05→22:24)
[2020-06-08] MEDS: INSULIN REGULAR, HUMAN 100 UNIT/ML 3 ML VIAL SQ PRN ×3 (09:05→18:09)
[2020-06-08] MEDS: CEFEPIME 1 GM in IV D5W 50 ML IV SCH (09:10)
[2020-06-08] MEDS: INSULIN GLARGINE, 100 UNIT/ML CARTRIDGE SQ SCH ×2 (11:00→22:19)
[2020-06-08] MEDS: PROSOURCE / PROSTAT (PYXIS) 30 ML UDC GT SCH ×2 (12:06→17:02)
--- NOTE | 2020-06-08 14:00 | NUR ---
BLOOD SUGAR RECHECKED WITH 170 VERIFIED WITH ALEXSANDER SAHA STATED ON HOLD MEDICATION
[2020-06-08] MEDS ORDERED: AMIKACIN 400 MG in IV D5W 100 ML IV ONE (17:00)
[2020-06-08] MEDS: NEPRO 1,000 ML BOTTLE GT PRN (18:11)
--- NOTE | 2020-06-08 18:58 | NUR ---
MS RN CLOSING NOTES PT RESTING IN BED AT THIS TIME. PT REMAINED STABLE THROUGHOUT SHIFT. ALL CARE, NEEDS, MEDICATIONS AND TREATMENT ADMINISTERED ANTICIPATED PER ORDER. PT SUCTIONS NEEDED. PT TOLERATED G-TUBE FEEDING. PT KEPT CLEAN AND DRY. FC AND TRACH CARE PROVIDED. PT REPOSITIONED Q2H, PRN AND PER PROTOCOL. ASPIRATION AND SAFETY PRECAUTION IN PLACE AND MAINTAINED AT ALL TIMES. BED IN LOWEST LOCKED POSITION, HOB ELEVATED, RAILS UP X 2, CALL LIGHT WITHIN REACH. WILL ENDORSE TO INCOME TAX RETURN PREPARER NURSE FOR LASHANDA
--- NOTE | 2020-06-08 19:23 | NUR ---
RN OPENING NOTES RECEIVED PT RESTING IN BED. ALERT IS ABLE TO OPEN EYES, NONVERBAL. PATIENT HAS TRACH PORTEX, T PIECE RECEIVING 8L OF OXYGEN. SATURATING WELL AT 98%. NO S/S OF SOB OR RESP DISTRESS AT THIS TIME. BREATHING IS EVEN AND UNLABORED. PT HAS BLE EDEMA. WESLEY CATHETER DRAINING YELLOW URINE FREE OF SEDIMENT. PT HAS BANDAGED ARTERIAL ULCERS ON LEFT AND RIGHT FEET. PT IS BED BOUND AND REMAINS IN A FLEXED POSITION AT THE KNEE. GTUBE FEEDING NEPRO RUNNING AT @ 45ML/HR. PATENT FLUSHED. AUSCULTATED TO CONFIRM PLACEMENT. LEFT HAND #20 PATENT AND FLUSHED. PAIN SCALE USED, FLACC OF 0. BED IS LOCKED IN LOWEST POSITION WITH BED ALARM ON. CALL LIGHT WITHIN REACH. WILL CONTINUE TO MONITOR.
[2020-06-08 20:00] VITALS: BP 156/48
--- NOTE | 2020-06-08 20:02 | NUR ---
TEMP OF 99.6 ENSURED COOL ENVIRONMENT BLANKETS TAKEN OFF. WILL CONTINUE TO MONITOR.
[2020-06-08] MEDS: ATORVASTATIN 40 MG TABLET GT SCH (21:32)
[2020-06-08] MEDS: MEROPENEM 500 MG in IV NS 0.9% 50 ML IV SCH (21:32)
[2020-06-09] MEDS: ACETAMINOPHEN 325 MG TABLET PO PRN (00:25)
--- NOTE | 2020-06-09 01:12 | NUR ---
PT HAD FEVER OF 101.2 AT 0012. GAVE TYLENOL PRN FOR FEVER 650 MG. REASSESSED AT 0110. TEMPERATURE OF 99.2. WILL CONTINUE TO MONITOR.
[2020-06-09] MEDS: METRONIDAZOLE 500MG/ NS 100ML 500 MG in PREMIX 1 EA IV SCH ×3 (01:26→18:24)
--- NOTE | 2020-06-09 03:58 | NUR ---
PT HAS A TEMPERATURE OF 98.3 AT THIS TIME. WILL CONTINUE TO MONITOR.
[2020-06-09 04:00] VITALS: BP 161/47
--- NOTE | 2020-06-09 05:35 | NUR ---
WOUND CARE TREATMENTS CARRIED OUT ORDERED.
[2020-06-09 07:02] LABS: BASOPHILS # (AUTO) 0.1 /CMM (0.0-0.2); BASOPHILS % (AUTO) 0.3 % (0.0-2.0); HEMATOCRIT 24 % (33-45); HEMOGLOBIN 7.3 g/dL (11.5-14.8); LYMPHOCYTES # (AUTO) 0.8 /CMM (0.8-4.8); LYMPHOCYTES % (AUTO) 3.2 % (20.0-44.0); MEAN CORPUSCULAR HGB CONC 31 g/dl (31.0-36.0); MEAN CORPUSCULAR VOLUME 101 fL (82-100); MONOCYTES # (AUTO) 0.9 /CMM (0.1-1.30); MONOCYTES % (AUTO) 3.7 % (2.0-12.0); NEUTROPHILS # (AUTO) 23.5 /CMM (1.8-8.9); NEUTROPHILS % (AUTO) 91.8 % (43.0-81.0); PLATELET COUNT (AUTO) 475 /CMM (150-450); RED BLOOD CELL COUNT(AUTO) 2.34 MIL/uL (4.0-5.2); WHITE BLOOD COUNT (AUTO) 25.6 K/uL (4.3-11.0)
[2020-06-09 07:18] LABS: CALCIUM, SERUM 9.3 mg/dL (8.5-10.1); CREATININE 4.7 mg/dL (0.6-1.3); MAGNESIUM 2.9 mg/dL (1.8-2.4); PHOSPHORUS 3.7 mg/dL (2.5-4.9); POTASSIUM 4.6 mmol/L (3.5-5.1)
--- NOTE | 2020-06-09 07:30 | NUR ---
RN OPENING NOTES RECEIVED PT RESTING IN BED. ALERT, NON VERBAL AND OPENS EYES. PATIENT ON TRACH PORTEX, T PIECE WITH 8L OF OXYGEN. SATURATING WELL AT 96%. NO SOB OR ACUTE RESPIRATORY DISTRESS AT THIS TIME. WESLEY CATH DRAINING YELLOWISH URINE. GTUBE FEEDING NEPRO @ 45ML/HR. POSITIVE PLACEMENT CHECKED BY AUSCULTATION. RESIDUAL IS LESS THAN 5ML. TOLERATING FEEDING WELL. L HAND #20 INTACT, PATENT AND FLUSHED. SAFETY PRECAUTIONS OBSERVED. CALL LIGHT WITHIN REACH. BED LOCKED AND IN LOWEST POSITION. WILL CONTINUE TO MONITOR
[2020-06-09 08:00] VITALS: BP 130/52
[2020-06-09] MEDS: BLOOD SUGAR DIAGNOSTIC 1 EACH STRIP VI SCH ×4 (08:03→21:56)
--- NOTE | 2020-06-09 08:24 | NUR ---
RN CLOSING NOTES PT IS ASLEEP IN BED. PT IS STILL ON TRACH, SLIGHT USE OF ACCESSORY MUSCLES AT THIS TIME. RT AT BEDSIDE. MEDS GIVEN. NEEDS ATTENDED. WOUND CARE PERFORMED ORDERED. TALKED TO TOMMY DAUGHTER WITH UPDATES. BED IS LOCKED IN LOWEST POSITION WITH BED ALARM ON. CALL LIGHT WITHIN REACH. WILL CONTINUE TO MONITOR. ENDORSED TO ONCOMING NURSE FOR CONTINUATION OF CARE.
[2020-06-09] MEDS: ASCORBIC ACID 500 MG TABLET GT SCH ×3 (09:14→17:00)
[2020-06-09] MEDS: DOCUSATE SODIUM 100 MG CAPSULE PO SCH (09:15)
[2020-06-09] MEDS: ACIDOPHILUS/BULGARICUS 1 EACH TAB.CHEW GT SCH (09:15)
[2020-06-09] MEDS: NEUTRA PHOS 1 POWD.PACKET NG SCH (09:15)
[2020-06-09] MEDS: FAMOTIDINE (20 MG) 20 MG TABLET GT SCH (09:15)
[2020-06-09] MEDS: PROSOURCE / PROSTAT (PYXIS) 30 ML UDC GT SCH ×3 (09:16→17:00)
[2020-06-09] MEDS: LEVETIRACETAM SOL (5 ML) 100 MG/ML UDC GT SCH ×2 (09:16→21:44)
[2020-06-09] MEDS: THIAMINE HCL 100 MG TABLET GT SCH (09:16)
[2020-06-09] MEDS: HEPARIN SODIUM, PORCINE 5000 UNITS/1 ML VIAL SQ SCH ×2 (09:18→21:48)
[2020-06-09] MEDS: INSULIN REGULAR, HUMAN 100 UNIT/ML 3 ML VIAL SQ PRN ×2 (09:26→12:50)
[2020-06-09 12:00] VITALS: BP 156/47
[2020-06-09 16:00] VITALS: BP 155/51
--- NOTE | 2020-06-09 19:10 | NUR ---
RN CLOSING NOTES PT RESTING IN BED. ALERT, NON VERBAL AND OPENS EYES. PATIENT ON TRACH PORTEX, T PIECE WITH 8L OF OXYGEN. SATURATING WELL AT 96%. NO SOB OR ACUTE RESPIRATORY DISTRESS AT THIS TIME. WESLEY CATH REMOVED MD ORDERED. GTUBE FEEDING NEPRO @ 45ML/HR. POSITIVE PLACEMENT CHECKED BY AUSCULTATION. RESIDUAL IS LESS THAN 5ML. TOLERATING FEEDING WELL. L HAND #20 INTACT, PATENT AND FLUSHED. ALL MEDS GIVEN. NEEDS ATTENDED. SAFETY PRECAUTIONS OBSERVED. CALL LIGHT WITHIN REACH. BED LOCKED AND IN LOWEST POSITION. WILL ENDORSE TO HOSE HANDLER FOR LASHANDA
--- NOTE | 2020-06-09 20:00 | NUR ---
ms vincenzo initial notes RECEIVED REPORT FROM AM NURSE AND SEEN PT ON BED, NON VERBAL, ON T-PIECE 8 LPM. PORTEX, RESPIRATION EVEN AND NON LABORED WITH NO ACUTE RESPIRATORY DISTRESS. ABDOMEN SOFT AND NON DISTENDED WITH ACTIVE BOWEL SOUNDS,INCONTINENT, G-TUBE IN PLACE, 0 ML RESIDUAL, POSITIVE PLACEMENT THROUGH AUSCULTATION, RUNNING NEPRO 45 ML/HR HERBIE WELL. NO S/SX OF PAIN AND DISCOMFORT. NO ACUTE DISTRESS NOTED WELL ,SKIN WARM TO TOUCH AND DRY, BLE OFFLOAD, IV SITE AT LEFT HAND, NO S/S OF INFILTRATION, PATENT IN FLUSHING. WESLEY TO GRAVITY , BED IN LOW LOCKED POSITION, SRX2 UP FOR SAFETY, KEPT HIM WARM AND COMFORTABLE AT ALL TIMES. WILL CONTINUE MONITORING.
[2020-06-09 20:48] VITALS: BP 162/50
[2020-06-09] MEDS: MEROPENEM 500 MG in IV NS 0.9% 50 ML IV SCH (21:43)
[2020-06-09] MEDS: ATORVASTATIN 40 MG TABLET GT SCH (21:48)
[2020-06-09] MEDS: INSULIN GLARGINE, 100 UNIT/ML CARTRIDGE SQ SCH (21:56)
--- NOTE | 2020-06-09 22:00 | NUR ---
TIRE SPOTTER NOTES ROUTINE MEDS GIVEN AND BLOOD SUGAR CHECKED DONE 261, 6 UNITS OF INSULIN GIVEN MUKUND SQ ORDERED. NO SIGNS OF HYPER GLYCEMIA NOTED. G-TUBE TOLERATED WELL NO ASPIRATION NOTED. WILL CONTINUE MONITORING.
[2020-06-09] MEDS: *INSULIN REGULAR(HUMULIN R)HUM 100 UNIT/ML VIAL SQ PRN (22:25)
[2020-06-09 22:50] VITALS: BP 162/50
[2020-06-09] MEDS: NEPRO 1,000 ML BOTTLE GT PRN (23:41)
--- NOTE | 2020-06-10 01:20 | NUR ---
GAMBLING DEALER NOTES' PT RESTING COMFORTABLY IN BED WITHOUT ANY ACUTE DISTRESS NOTED. KEPT HER WARM AND COMFORTABLE AT ALL TIMES. WILL CONTINUE MONITORING.
[2020-06-10] MEDS: METRONIDAZOLE 500MG/ NS 100ML 500 MG in PREMIX 1 EA IV SCH ×3 (02:00→17:03)
[2020-06-10 05:00] VITALS: BP 154/50
--- NOTE | 2020-06-10 07:19 | NUR ---
ms wallcovering hanger closing notes pt resting at this time breathing even and non-labored not in any acute distress noted. all due meds given and all needs met. g-tube feeding tolerated well no aspiration noted. kept her hob elevated at all times. morning care done and wound tx as well. kept her warm and comfortable at all times. endorse to am nurse for continuity of care.
--- NOTE | 2020-06-10 07:45 | NUR ---
RN OPEN NOTES PATIENT IS RESTING IN BED WITH NO SIGNS OF DISTRESS WITH PORTEX 8 INTACT FIO2 40%. IV ON L HAND#20 INTACT. G-TUBE INTACT FEEDING NEPRO AT 45 ML/HR. SAFETY MEASURES ARE APPLIED, BED IS LOW AND LOCKED. SIDE RAILS UP X 2 FOR SAFETY. CALL LIGHT WITHIN REACH. WILL CONTINUE TO MONITOR.
[2020-06-10 08:00] VITALS: BP 152/53
--- NOTE | 2020-06-10 08:00 | NUR ---
FEVER 100.5F GAVE TYLENOL AND ICE BAGS TO DECREASE FEVER. WILL CONTINUE TO MONITOR.
[2020-06-10] MEDS: BLOOD SUGAR DIAGNOSTIC 1 EACH STRIP VI SCH ×4 (08:05→22:03)
[2020-06-10] MEDS: INSULIN REGULAR, HUMAN 100 UNIT/ML 3 ML VIAL SQ PRN ×3 (08:11→16:51)
[2020-06-10] MEDS: DOCUSATE SODIUM 100 MG CAPSULE PO SCH (09:35)
[2020-06-10] MEDS: THIAMINE HCL 100 MG TABLET GT SCH (09:35)
[2020-06-10] MEDS: FAMOTIDINE (20 MG) 20 MG TABLET GT SCH (09:35)
[2020-06-10] MEDS: ACIDOPHILUS/BULGARICUS 1 EACH TAB.CHEW GT SCH (09:35)
[2020-06-10] MEDS: LEVETIRACETAM SOL (5 ML) 100 MG/ML UDC GT SCH ×2 (09:35→22:01)
[2020-06-10] MEDS: ASCORBIC ACID 500 MG TABLET GT SCH ×3 (09:35→16:24)
[2020-06-10] MEDS: NEUTRA PHOS 1 POWD.PACKET NG SCH (09:41)
[2020-06-10] MEDS: PROSOURCE / PROSTAT (PYXIS) 30 ML UDC GT SCH ×3 (10:04→16:22)
--- NOTE | 2020-06-10 11:15 | NUR ---
PATIENT WENT TO MRI WITH RT AND RN. WILL CONTINUE TO MONITOR.
[2020-06-10 12:00] VITALS: BP_SYST 145; BP_SYST 162; BP_DIAS 59; BP_DIAS 64
--- NOTE | 2020-06-10 12:00 | NUR ---
PATIENT RETURNED BACK FROM MRI VIA [facility].
--- NOTE | 2020-06-10 12:05 | NUR ---
TEMPERATURE IS 98.8 F BP 145/64 HR 84. WILL CONTINUE TO MONITOR.
[2020-06-10] MEDS: HEPARIN SODIUM, PORCINE 5000 UNITS/1 ML VIAL SQ SCH ×2 (12:38→22:02)
[2020-06-10] MEDS: ACETAMINOPHEN 325 MG TABLET PO PRN ×2 (12:55→22:05)
--- NOTE | 2020-06-10 18:00 | NUR ---
SPOKE WITH DAUGHTER TOMMY, WOULD LIKE TO SPEAK WITH DOCTOR. INFORMED DR. HINTON.
--- NOTE | 2020-06-10 18:10 | NUR ---
UNABLE TO DO DIALYSIS TODAY. D/T TECHNICAL PROBLEM WITH HD MACHINE UNABLE TO CONNECT PORT TO WATER PER NAIF HD NURSE. DR. HINTON AWARE.
--- NOTE | 2020-06-10 19:41 | NUR ---
RN CLOSED NOTES PATIENT IS RESTING IN BED WITH NO SIGNS OF DISTRESS WITH PORTEX 8 INTACT FIO2 40%. IV ON L HAND#20 INTACT. G-TUBE INTACT FEEDING NEPRO AT 45 ML/HR. PATIENT REMAINED STABLE THROUGH OUT SHIFT. PATIENT KEPT CLEAN AND DRY. ALL NEEDS, CARE, TREATMENT AND MEDICATIONS ADMINISTERED ANTICIPATED PER ORDER. SAFETY MEASURES ARE APPLIED, BED IS LOW AND LOCKED. SIDE RAILS UP X 2 FOR SAFETY. CALL LIGHT WITHIN REACH. WILL ENDORSE TO THE NECT GRAIN BROKER NURSE.
[2020-06-10 20:00] VITALS: BP 157/67
[2020-06-10] MEDS: MEROPENEM 500 MG in IV NS 0.9% 50 ML IV SCH (21:50)
[2020-06-10] MEDS: ATORVASTATIN 40 MG TABLET GT SCH (22:01)
[2020-06-10] MEDS: HYDROCODONE/APAP 5/325MG TABLET PO PRN (22:06)
[2020-06-10] MEDS: INSULIN GLARGINE, 100 UNIT/ML CARTRIDGE SQ SCH (22:15)
[2020-06-10] MEDS: *INSULIN REGULAR(HUMULIN R)HUM 100 UNIT/ML VIAL SQ PRN (22:16)
[2020-06-11] MEDS: NEPRO 1,000 ML BOTTLE GT PRN (05:20)
[2020-06-11 07:04] LABS: CALCIUM, SERUM 9.4 mg/dL (8.5-10.1); CREATININE 6.5 mg/dL (0.6-1.3); POTASSIUM 5.7 mmol/L (3.5-5.1)
[2020-06-11 07:05] LABS: MAGNESIUM 3.1 mg/dL (1.8-2.4); PHOSPHORUS 6.4 mg/dL (2.5-4.9)
[2020-06-11] MEDS: ACETAMINOPHEN 325 MG TABLET PO PRN ×2 (07:43→16:27)
[2020-06-11] MEDS: BLOOD SUGAR DIAGNOSTIC 1 EACH STRIP VI SCH ×4 (07:53→21:03)
[2020-06-11 08:00] VITALS: BP 162/55
[2020-06-11] MEDS: INSULIN REGULAR, HUMAN 100 UNIT/ML 3 ML VIAL SQ PRN (08:01)
[2020-06-11 08:06] LABS: BASOPHILS # (AUTO) 0.1 /CMM (0.0-0.2); BASOPHILS % (AUTO) 0.4 % (0.0-2.0); HEMATOCRIT 21 % (33-45); LYMPHOCYTES # (AUTO) 0.9 /CMM (0.8-4.8); LYMPHOCYTES % (AUTO) 4.1 % (20.0-44.0); MEAN CORPUSCULAR HGB CONC 30 g/dl (31.0-36.0); MEAN CORPUSCULAR VOLUME 103 fL (82-100); MONOCYTES # (AUTO) 0.8 /CMM (0.1-1.30); NEUTROPHILS # (AUTO) 19.1 /CMM (1.8-8.9); NEUTROPHILS % (AUTO) 90.5 % (43.0-81.0); PLATELET COUNT (AUTO) 499 /CMM (150-450); RED BLOOD CELL COUNT(AUTO) 2.09 MIL/uL (4.0-5.2); WHITE BLOOD COUNT (AUTO) 21.1 K/uL (4.3-11.0)
--- NOTE | 2020-06-11 08:11 | NUR ---
RN OPENING NOTES: RECEIVED PT IN BED SLEEPING. PT IS ON VENT OPENS HER EYES WHEN APPROACHED A/OX1, NO SIGNS OF RESPIRATORY DISTRESS, DIFFICULTY BREATHING, SOB, PT HAD A FEVER OF 100.4 TYLENOL 650MG WAS GIVEN WELL COOLING MEASURES. PT IS ON RA TOLERATING WELL, IV SITE R HAND #18, INTACT FLUSHED WELL. ALL PTS COMFORT AND SAFETY MEASURES MAINTAINED WILL CONTINUE TO MONITOR.
[2020-06-11 08:40] LABS: HEMOGLOBIN 6.5 g/dL (11.5-14.8)
--- NOTE | 2020-06-11 08:53 | NUR ---
RN NOTES: LAB CALLED CRITICAL VALUE HGB 6.5, CHARGE NURSE WAS VERIFIED WELL THE
--- NOTE | 2020-06-11 08:53 | NUR ---
ALEXSANDER HINTON NOTIFIED PT. LOW H/H OK TO GIVE BLOOD W/ HD TODAY.PEDRO HD COORDINTOR MADE AWARE. PRIMARY RN AWARE.
[2020-06-11] MEDS: ACIDOPHILUS/BULGARICUS 1 EACH TAB.CHEW GT SCH (09:33)
[2020-06-11] MEDS: DOCUSATE SODIUM 100 MG CAPSULE PO SCH (09:34)
[2020-06-11] MEDS: FAMOTIDINE (20 MG) 20 MG TABLET GT SCH (09:35)
[2020-06-11] MEDS: LEVETIRACETAM SOL (5 ML) 100 MG/ML UDC GT SCH ×2 (09:35→21:03)
[2020-06-11] MEDS: ASCORBIC ACID 500 MG TABLET GT SCH ×3 (09:36→17:17)
[2020-06-11] MEDS: NEUTRA PHOS 1 POWD.PACKET NG SCH (09:36)
[2020-06-11] MEDS: THIAMINE HCL 100 MG TABLET GT SCH (09:36)
[2020-06-11] MEDS: HEPARIN SODIUM, PORCINE 5000 UNITS/1 ML VIAL SQ SCH (09:51)
[2020-06-11] MEDS: PROSOURCE / PROSTAT (PYXIS) 30 ML UDC GT SCH ×3 (09:51→17:18)
--- NOTE | 2020-06-11 10:22 | NUR ---
SPOKE WITH DAUGHTER TOMMY AND WANTED A CALL FROM PRIMARY MD REGARDING TREATMENT OF HER MOM,ALEXSANDER LilaCiarra MADE AWARE AND GAVE DAUGHTER PHONE NUMBER.FAMILY REASSURED PATIENT BEING TAKEN C/O ,EMOTIONAL SUPPORT GIVEN.
[2020-06-11 10:35] LABS: LYMPHOCYTES % (MANUAL) 4 % (16-48); NEUTROPHILS % (MANUAL) 92 (42-76)
[2020-06-11 10:36] LABS: EOSINOPHILS % (MANUAL) 2 % (0-4); MONOCYTES % (MANUAL) 2 % (0-11.0)
[2020-06-11 11:09] VITALS: BP 180/73
[2020-06-11 12:00] VITALS: BP 160/88
--- NOTE | 2020-06-11 12:36 | NUR ---
SPOKE TO [facility],RADIOLOGIST SAY SHOULD NOT DO CT WITH CONTRAST DUE TO HIGH CRE 6.5
--- NOTE | 2020-06-11 13:07 | NUR ---
PER RADIOLOGY THEIR RADIOLOGIST REFUSED TO DO CT W/ CONTRST R/T ELEVATED CREA DESPITE CLEARANCE FROM RENAL .GAVE TO ALEXSANDER RADIOLOGIST PHONE NUMBER [phone] JOSE.WILL CONTINUE TO FF. UP.
[2020-06-11] MEDS: VANCOMYCIN POST DIALYSIS 500MG IV PRN ×2 (14:39)
--- NOTE | 2020-06-11 15:54 | NUR ---
RN NOTES: HD WAS DONE PT TOLERATED IT WELL, BLOOD TRANSFUSION WAS DONE WELL TOLERATED WELL, MELITON MIDLINE WAS PLACED. WILL CONTINUE TO MONITOR
[2020-06-11 16:00] VITALS: BP 166/54
[2020-06-11] MEDS ORDERED: IV NS 0.9% 250 ML IV ONE (16:37)
[2020-06-11] MEDS ORDERED: IOHEXOL-300 100 ML VIAL IV ONE (16:37)
[2020-06-11] MEDS: *INSULIN REGULAR(HUMULIN R)HUM 100 UNIT/ML VIAL SQ PRN ×2 (17:58→21:30)
--- NOTE | 2020-06-11 18:01 | NUR ---
FOLLOW UP CT HEAD RESULTS STILL PENDING PER RADIOLOGY.
--- NOTE | 2020-06-11 18:24 | NUR ---
CT HEAD RESULT RELAYED TO ALEXSANDER HINTON AND DR. JACKSON NO NEW ORDERS.
--- NOTE | 2020-06-11 18:36 | NUR ---
RN CLOSING NOTES: PT IN BED SLEEPING, PT IS ON TRACH, NO SIGNS OF RESPIRATORY DISTRESS, SOB, DIFFICULTY BREATHING OR PAIN. PT HAD FEVER DURING THE DAY TYLENOL WAS GIVEN, CT SCAN WITH AND WITHOUT CONTRAST WAS DONE PT TOLERATED IT WELL. MIDLINE WAS PLACED ITS INTACT AND FLUSHE WELL. ALL SAFETY AND COMFORT MEASURES MAINTAINED WILL ENDORE TO PM NURSE FOR CONTINUATION OF CARE.
--- NOTE | 2020-06-11 20:00 | NUR ---
RN NOTES RECEIVED PT.SLEEPING BUT AROUSABLE, NON-VERBAL , ON T-PIECE, NEPRO RUNNING @ 45ML/HR, NO RESIDUAL NOTED, MIDLINE ON THE RIGHT UPPER ARM-PATENT AND INTACT, NOT IN DISTRESS, DRESSING ON BILATERAL FEET DRY AND INTACT, NO PAIN NOTED, SIDERAILSUPX2, CONTINUE TO MONITOR
[2020-06-11] MEDS: MEROPENEM 500 MG in IV NS 0.9% 50 ML IV SCH (21:03)
[2020-06-11] MEDS: ATORVASTATIN 40 MG TABLET GT SCH (21:16)
[2020-06-11] MEDS: INSULIN GLARGINE, 100 UNIT/ML CARTRIDGE SQ SCH (21:26)
[2020-06-11 23:10] VITALS: BP 155/66
[2020-06-12] MEDS: NEPRO 1,000 ML BOTTLE GT PRN ×2 (03:57→21:39)
[2020-06-12 04:00] VITALS: BP 100/58
--- NOTE | 2020-06-12 06:30 | NUR ---
RN NOTES SLEEPING BUT AROUSABLE, NOT IN DISTRESS, NO SOB, G-TUBE FEEDING IN PLACE, NO RESIDUAL NOTED, CALL LIGHT WITHIN REACH, SIDERAILSUPX2, PT. NEEDS ATTENDED
[2020-06-12 07:24] LABS: BASOPHILS # (AUTO) 0.1 /CMM (0.0-0.2); BASOPHILS % (AUTO) 0.2 % (0.0-2.0); EOSINOPHILS % (AUTO) 0.7 % (0.0-6.0); HEMATOCRIT 24 % (33-45); HEMOGLOBIN 7.3 g/dL (11.5-14.8); LYMPHOCYTES # (AUTO) 0.6 /CMM (0.8-4.8); LYMPHOCYTES % (AUTO) 2.8 % (20.0-44.0); MEAN CORPUSCULAR HGB CONC 31 g/dl (31.0-36.0); MEAN CORPUSCULAR VOLUME 97 fL (82-100); MONOCYTES # (AUTO) 0.8 /CMM (0.1-1.30); MONOCYTES % (AUTO) 3.9 % (2.0-12.0); NEUTROPHILS # (AUTO) 19.3 /CMM (1.8-8.9); NEUTROPHILS % (AUTO) 92.4 % (43.0-81.0); PLATELET COUNT (AUTO) 448 /CMM (150-450); RED BLOOD CELL COUNT(AUTO) 2.44 MIL/uL (4.0-5.2)
[2020-06-12] MEDS: BLOOD SUGAR DIAGNOSTIC 1 EACH STRIP VI SCH ×3 (07:35→16:48)
--- NOTE | 2020-06-12 07:40 | NUR ---
M/S RN OPENING NOTES RECEIVED PT ON BED, NON VERBAL. RESPIRATION EVEN AND NON LABORED WITH NO ACUTE RESPIRATORY DISTRESS, ON T PIECE AT 5LPM. SKIN WARM TO TOUCH AND DRY. ABD SOFT AND NON DISTENDED W/ ACTIVE BOWEL SOUNDS, HD PT, GTUBE ON NEPRO @ 45 ML/HR X 18 HRS, HERBIE WELL. NO S/SX OF PAIN AND DISCOMFORT. IV SITE AT RIGHT UPPER ARM PICC LINE, PATENT IN FLUSHING, SITE HAS NO S/SX OF INFILTRATION. BLE OFFLOAD. BED IN LOW LOCKED POSITION, NEAR NURSES STATION. WILL CONT TO MONITOR.
[2020-06-12 08:05] VITALS: BP 161/48
[2020-06-12] MEDS: INSULIN REGULAR, HUMAN 100 UNIT/ML 3 ML VIAL SQ PRN ×4 (08:16→23:38)
[2020-06-12] MEDS: ACIDOPHILUS/BULGARICUS 1 EACH TAB.CHEW GT SCH (08:17)
[2020-06-12] MEDS: FAMOTIDINE (20 MG) 20 MG TABLET GT SCH (08:17)
[2020-06-12] MEDS: PROSOURCE / PROSTAT (PYXIS) 30 ML UDC GT SCH ×3 (08:17→16:48)
[2020-06-12] MEDS: DOCUSATE SODIUM 100 MG CAPSULE PO SCH (08:17)
[2020-06-12] MEDS: LEVETIRACETAM SOL (5 ML) 100 MG/ML UDC GT SCH ×2 (08:17→20:03)
[2020-06-12] MEDS: THIAMINE HCL 100 MG TABLET GT SCH (08:17)
[2020-06-12] MEDS: ASCORBIC ACID 500 MG TABLET GT SCH ×3 (08:17→16:48)
[2020-06-12 09:06] LABS: CREATININE 4.6 mg/dL (0.6-1.3); MAGNESIUM 2.6 mg/dL (1.8-2.4); PHOSPHORUS 6.2 mg/dL (2.5-4.9); POTASSIUM 4.9 mmol/L (3.5-5.1)
--- NOTE | 2020-06-12 09:30 | NUR ---
M/S RN NOTES CRITICAL RESULT REPORTED 350 PER PETER IN LAB. CN CLAUDIA AWARE,TO NOTIFY HOSPITALIST TODAY - DR. HINTON
--- NOTE | 2020-06-12 10:29 | NUR ---
M/S RN NOTES URINE CX ORDER RECEIVED, IN AND OUT CATHETER ATTEMPTED, UNABLE TO COLLECT URINE PT JUST FINISHED HD TODAY WITH 2L OUT.
[2020-06-12] MEDS: VANCOMYCIN POST DIALYSIS 500MG IV PRN ×2 (12:44)
[2020-06-12 16:18] VITALS: BP 126/88
[2020-06-12] MEDS: FLUCONAZOLE (100 MG) 100 MG TABLET PO SCH (17:38)
[2020-06-12] MEDS ORDERED: DEXTROSE 50%-WATER 50 ML DISP.SYRIN IV PRN (18:30)
--- NOTE | 2020-06-12 18:32 | NUR ---
ALEXSANDER HINTON CHANGE INSULIN COVERAGE TO AGGRESSIVE COVERAGE,WILL CONTINUE TO MONITOR.
--- NOTE | 2020-06-12 18:52 | NUR ---
M/S RN CLOSING NOTES PT NON VERBAL, NO PRESENCE OF ACUTE RESPIRATORY DISTRESS, ON TPIECE AT 5LPM. SKIN WARM TO TOUCH AND DRY. NO NEW SKIN BREAKDOWN, BLE OFFLOAD. LBM TODAY X2. NO S/SX OF PAIN AND DISCOMFORT. IV SITE AT R UPPER ARM MIDLINE, PATENT IN FLUSHING, NO S/SX OF INFILTRATION. BED IN LOW LOCKED POSITION, SRX3 UP FOR SAFETY, NEAR NURSES STATION. ENDORSED CARE TO NEXT SHIFT.
[2020-06-12 20:00] VITALS: BP 137/46
[2020-06-12] MEDS: MEROPENEM 500 MG in IV NS 0.9% 50 ML IV SCH (20:03)
--- NOTE | 2020-06-12 20:30 | NUR ---
rn recovery: received pt, awake, non verbal, on t-piece 8L, fio2 35%. pt gtube feeding currently clamped, able to flush well with water, no resistance met, gtube feeding order is nepro at 45ml/hr x 18hrs, to be turn on at 2100. pt has eusebio midline in placed, patent and flushing well, on hl. continuous pulse oximetry monitoring spo2 ranging 92-94%. on kci mattress. safety precautions for fall initiated, call light in reach, will continue monitoring pt.
--- NOTE | 2020-06-12 21:07 | NUR ---
rn notes: received call from dr diego reyes, provided update regarding pt, she stated she will be placing orders for labs in am for leukocytosis
[2020-06-12] MEDS: ATORVASTATIN 40 MG TABLET GT SCH (21:46)
[2020-06-12] MEDS: INSULIN GLARGINE, 100 UNIT/ML CARTRIDGE SQ SCH (21:48)
[2020-06-12] MEDS: BLOOD SUGAR DIAGNOSTIC 1 EACH STRIP IN SCH (23:38)
[2020-06-13 04:00] VITALS: BP 140/53
[2020-06-13] MEDS: ACETAMINOPHEN 325 MG TABLET PO PRN ×2 (04:24→20:01)
--- NOTE | 2020-06-13 04:25 | NUR ---
prn tylenol/t 99.3: prn tylenol administered via gtube for t 99.3, cooling measures provided, cold bath provided, removed thick blanket, make room cooler. will monitor accordingly.
[2020-06-13] MEDS: BLOOD SUGAR DIAGNOSTIC 1 EACH STRIP IN SCH ×3 (05:19→17:08)
[2020-06-13] MEDS: INSULIN REGULAR, HUMAN 100 UNIT/ML 3 ML VIAL SQ PRN ×2 (05:25→16:18)
[2020-06-13 06:37] LABS: BASOPHILS % (AUTO) 0.2 % (0.0-2.0); EOSINOPHILS % (AUTO) 0.8 % (0.0-6.0); HEMATOCRIT 23 % (33-45); HEMOGLOBIN 7.2 g/dL (11.5-14.8); LYMPHOCYTES % (AUTO) 4.5 % (20.0-44.0); MEAN CORPUSCULAR HGB CONC 31 g/dl (31.0-36.0); MEAN CORPUSCULAR VOLUME 99 fL (82-100); MONOCYTES # (AUTO) 0.9 /CMM (0.1-1.30); MONOCYTES % (AUTO) 4.1 % (2.0-12.0); NEUTROPHILS # (AUTO) 20.6 /CMM (1.8-8.9); NEUTROPHILS % (AUTO) 90.4 % (43.0-81.0); PLATELET COUNT (AUTO) 434 /CMM (150-450); RED BLOOD CELL COUNT(AUTO) 2.37 MIL/uL (4.0-5.2); WHITE BLOOD COUNT (AUTO) 22.8 K/uL (4.3-11.0)
--- NOTE | 2020-06-13 06:40 | NUR ---
END OF SHIFT REPORT: PT TOLERATED SETTINGS WELL, SPO2 RANGING 93-95%, TPIECE COOL AEROSOL 8.0 OXYGEN FIO2 35%. GTUBE FEEDING REMAINS INFUSING WITH NEPRO AT 45ML/HR. YEFRI MIDLINE IN PLACED, PATENT AND FLUSHING WELL, NO S/S OF IV INFILTRATION NOTED. BLE KEPT OFFLOADED ON PILLOWS. NO S/S OF ACTIVE BLEEDING NOTED. ACCU CHECK PERFORMED RESULT FOR 0000 IS 93/no insulin coverage per sliding scale, FOR 0500 IS 138, 3 units of insulin administered per SS. LATEST TEMP 99.0, PRN TYLENOL ADMINISTERED. KEPT HOB 40DEGREE PER MD ORDER. VS REMAINS STABLE, NEEDS ATTENDED. AM CARE AND WOUND CARE PROVIDED. PLAN OF CARE: AM LABS, CONT IV ATB, DTR TOMMY WOULD LIKE TO SPEAK WITH MD REGARDING HEAD CT RESULT, POSSIBLE AMPUTATION BLE. SAFETY PRECAUTIONS FOR FALL REMAINS ENGAGED, CALL LIGHT IN REACH, WILL ENDORSE TO DAY RN FOR CONTINUITY OF CARE.
[2020-06-13 07:10] LABS: CALCIUM, SERUM 9.3 mg/dL (8.5-10.1); CREATININE 4.4 mg/dL (0.6-1.3); MAGNESIUM 2.6 mg/dL (1.8-2.4); PHOSPHORUS 5.8 mg/dL (2.5-4.9); POTASSIUM 4.5 mmol/L (3.5-5.1)
[2020-06-13 07:40] LABS: THYROID STIMULATING HORMONE 2.435 uIU/mL (0.358-3.74)
--- NOTE | 2020-06-13 08:00 | NUR ---
RN Opening Note Received patient in bed non verbal, able to responds physical stimuli. Pt does no appears pain, distress, respiratory even and unlabored with oxygen 8Ls, Fio2 35%, and pt is on Portex #8, O2sat 92-95%, no sob or distress observed. Skin is warm to touch, kept clean/dry, intact midline site and HD cath on right subclavian, also intact g tube site running Nephro at 45ml/hr. Keep locked bed with elevated HOB for ensure airway and aspiration precaution. Call light within reach, will continue to monitor.
[2020-06-13] MEDS: ACIDOPHILUS/BULGARICUS 1 EACH TAB.CHEW GT SCH (08:43)
[2020-06-13] MEDS: DOCUSATE SODIUM 100 MG CAPSULE PO SCH (08:43)
[2020-06-13] MEDS: ASCORBIC ACID 500 MG TABLET GT SCH ×3 (08:43→17:08)
[2020-06-13] MEDS: FAMOTIDINE (20 MG) 20 MG TABLET GT SCH (08:43)
[2020-06-13] MEDS: FLUCONAZOLE (100 MG) 100 MG TABLET PO SCH (08:43)
[2020-06-13] MEDS: LEVETIRACETAM SOL (5 ML) 100 MG/ML UDC GT SCH ×2 (08:43→20:01)
[2020-06-13] MEDS: PROSOURCE / PROSTAT (PYXIS) 30 ML UDC GT SCH ×3 (08:44→17:08)
[2020-06-13] MEDS: THIAMINE HCL 100 MG TABLET GT SCH (08:45)
[2020-06-13 13:07] LABS: VDRL, CSF Non Reactive (Non Rea:<1:1)
[2020-06-13 14:06] LABS: *WEST NILE VIRUS IgG, CSF Positive (Negative)
--- NOTE | 2020-06-13 14:33 | NUR ---
family IS requesting referral to [facility] [phone], spoke with sara Appiah- they don't accept [facility] and dialysis patient. Spoke with daughter Marlyn [phone], is aware. Daughter is still loooking for another [facility] that accept HD.She will contact casework specialist regarding dc disposition. Bed is still available at [facility]. Addendum: 06/13/20 at 1435 by SAUL WELCH RN Amended: Links added.
[2020-06-13 16:00] VITALS: BP 138/53
--- NOTE | 2020-06-13 16:10 | NUR ---
RT suggested ABG test due to pt labored breathing and frothy secretion, NAINA/Juan Jose and Dr. Guadarrama made aware ABG result.
[2020-06-13 16:32] LABS: ABG BASE EXCESS 1.3 mmol/L; ABG OXYGEN SATURATION 92.6 % (92.0-98.5); ABG PCO2 36.2 mmHg (35.0-45.0); ABG PO2 72.6 mmHg (75.0-100.0); COHb 3.5 % (0.5-1.5); MetHb 4.4 % (0.0-1.5); O2Hb 85.3 % (94.0-97.0); SITE, ABG Right Radial
[2020-06-13 17:11] LABS: APPEARANCE,URINE SL CLOUDY (CLEAR); BILIRUBIN,URINE NEGATIVE (NEGATIVE); BLOOD, URINE LARGE Ery/uL (NEGATIVE); COLOR,URINE YELLOW (YELLOW); KETONES,URINE NEGATIVE (NEGATIVE); LEUKOCYTE ESTERASE ,URINE LARGE (NEGATIVE); NITRITE, URINE NEGATIVE (NEGATIVE); PROTEIN,URINE >=300 mg/dl (NEGATIVE); UGLUCOSE 250 MG/DL mg/dL (NEGATIVE); UROBILINOGEN,URINE 0.2 EU/dL (0.2)
[2020-06-13 17:58] LABS: BACTERIA,URINE 1+ /HPF (None Seen); RBC,URINE 81-100 /HPF (0-2); SQUAMOUS EPITHELIAL CELL,UR Few /HPF (None Seen); WBC,URINE TOO NUMEROUS TO COUN /HPF (0-3)
--- NOTE | 2020-06-13 19:05 | NUR ---
PT LYING IN BED WITH HOB ELEVATED. VENT SETTINGS ON PRESCRIBED.TOLERATING WELL. RESPIRATION EVEN AND UNLABORED. NON VERBAL. OPEN EYES. GENERALIZED EDEMA NOTED. GT FEEDING RUNNING PRESCRIBED AND TOLERATING WELL. YEFRI MIDLINE PATENT AND DRESSING INTACT. R SUBCLAVIAN HD CATH INTACT AND PATENT,DRESSING INTACT. BED LOCKED, LOW, HOB ELEVATED, RAILS UP X2, CALL LIGHT WITHIN REACH, ALL HOSPITAL POLICY SAFETY PRECAUTIONS IMPLEMENTED
--- NOTE | 2020-06-13 19:20 | NUR ---
RN OPENING NOTE RECEIVED PATIENT IN BED RESTING CONFUSED LETHARGIC NON VERBAL ON TRACH OXYGEN 10L O2:96% LABORED BREATHING ON MED SURG MONITORING,IV SITE IS ON RIGHT UPPER MID LINE INTACT PATENT,AND PERM CATH FOR DIALYSIS ON RIGHT SUBCLAVIAN DRESSING INTACT,ON G-TUBE FEEDING,CHECKED PLACEMENT IN PLACE,ON NEPRO 45 CC/HR NO RESIDUAL NOTED,KEEP HEAD OF BED ELEVATED,INCONTINENT TO BOWEL AND BLADDER,CONTINUE TO MONITOR.
[2020-06-13] MEDS: MEROPENEM 500 MG in IV NS 0.9% 50 ML IV SCH (20:17)
[2020-06-13 21:00] VITALS: BP 156/63
--- NOTE | 2020-06-13 21:00 | NUR ---
RN NOTE PATIENT HAS TEMPERATURE 100.4 ACETAMINOPHEN 650MG GIVEN PRN FOR FEVER,CONTINUE TO MONITOR
[2020-06-13] MEDS: ATORVASTATIN 40 MG TABLET GT SCH (21:31)
[2020-06-13] MEDS: INSULIN GLARGINE, 100 UNIT/ML CARTRIDGE SQ SCH (21:59)
--- NOTE | 2020-06-13 22:31 | NUR ---
RN NOTE PATIENT TEMPERATURE IS 99.2 CONTINUE TO MONITOR
[2020-06-14] VITALS (8 sets, daily range): BP systolic 99–155; BP diastolic 37–71
[2020-06-14] MEDS: BLOOD SUGAR DIAGNOSTIC 1 EACH STRIP IN SCH ×4 (00:29→17:43)
[2020-06-14] MEDS: INSULIN REGULAR, HUMAN 100 UNIT/ML 3 ML VIAL SQ PRN ×5 (00:39→21:19)
[2020-06-14 07:09] LABS: CALCIUM, SERUM 9.3 mg/dL (8.5-10.1); CREATININE 3.7 mg/dL (0.6-1.3); MAGNESIUM 2.6 mg/dL (1.8-2.4); PHOSPHORUS 5.6 mg/dL (2.5-4.9); POTASSIUM 4.7 mmol/L (3.5-5.1)
--- NOTE | 2020-06-14 07:11 | NUR ---
RN CLOSING NOTE PATIENT REMAINS CONFUSED ALERT ORIENTED X0 NONVERBAL LETHARGIC ON 10L OXYGEN VIA TRACH O2:97% IV SITE IS ON RIGHT UPPER ARM MIDLINE,AND RIGHT SUB CLAVICAL FOR DIALYSIS INTACT PATENT DRESSING INTACT ON G-TUBE FEEDING NEPRO 45 CC/HR NO RESIDUAL NOTED ALL DUE MEDS GIVEN MD ORDERED,HEAD OF BED ELEVATED,KEPT CLEAN AND DRY ALL THE TIME,ALL NEEDS MET ENDORSE NEXT COMING SHIFT FOR CONTINUATION OF CARE.
[2020-06-14 07:13] LABS: BASOPHILS # (AUTO) 0.1 /CMM (0.0-0.2); BASOPHILS % (AUTO) 0.3 % (0.0-2.0); EOSINOPHILS % (AUTO) 0.2 % (0.0-6.0); HEMATOCRIT 23 % (33-45); LYMPHOCYTES # (AUTO) 0.7 /CMM (0.8-4.8); LYMPHOCYTES % (AUTO) 2.8 % (20.0-44.0); MEAN CORPUSCULAR HGB CONC 30 g/dl (31.0-36.0); MEAN CORPUSCULAR VOLUME 100 fL (82-100); MONOCYTES % (AUTO) 3.9 % (2.0-12.0); NEUTROPHILS # (AUTO) 24.2 /CMM (1.8-8.9); NEUTROPHILS % (AUTO) 92.8 % (43.0-81.0); PLATELET COUNT (AUTO) 504 /CMM (150-450); RED BLOOD CELL COUNT(AUTO) 2.26 MIL/uL (4.0-5.2); WHITE BLOOD COUNT (AUTO) 26.1 K/uL (4.3-11.0)
--- NOTE | 2020-06-14 07:30 | NUR ---
RECEIVED PATIENT IN BED. NO ACUTE DISTRESS NOTED. PATIENT ALERT & ORIENTED X0, NONVERBAL. PATIENT ON MECHANICAL VENTILATOR, SATURATING WELL AT 97-100%. PATIENT DIALYSIS DONE 06/13, REPORTED NO OUTPUT, JUST CLEANED. PATIENT G-TUBE IN PLACE, INTACT, PATENT. PATIENT RIGHT UPPER ARM MIDLINE IN PLACE, INTACT, PATENT, FLUSHED WELL. PATIENT SAFETY MEASURES MAINTAINED. CALL LIGHT WITHIN REACH. WILL CONTINUE TO MONITOR
[2020-06-14 07:44] LABS: HEMOGLOBIN 6.8 g/dL (11.5-14.8)
[2020-06-14 08:32] LABS: LYMPHOCYTES % (MANUAL) 6 % (16-48); MONOCYTES % (MANUAL) 4 % (0-11.0); NEUTROPHILS % (MANUAL) 90 (42-76)
[2020-06-14] MEDS: MEROPENEM 500 MG in IV NS 0.9% 50 ML IV SCH ×2 (08:32→20:57)
[2020-06-14] MEDS: PROSOURCE / PROSTAT (PYXIS) 30 ML UDC GT SCH ×3 (08:32→16:59)
[2020-06-14] MEDS: DOCUSATE SODIUM 100 MG CAPSULE PO SCH (08:33)
[2020-06-14] MEDS: LEVETIRACETAM SOL (5 ML) 100 MG/ML UDC GT SCH ×2 (08:33→21:02)
[2020-06-14] MEDS: FLUCONAZOLE (100 MG) 100 MG TABLET PO SCH (08:33)
[2020-06-14] MEDS: FAMOTIDINE (20 MG) 20 MG TABLET GT SCH (08:33)
[2020-06-14] MEDS: ACIDOPHILUS/BULGARICUS 1 EACH TAB.CHEW GT SCH (08:33)
[2020-06-14] MEDS: ASCORBIC ACID 500 MG TABLET GT SCH ×3 (08:33→16:59)
[2020-06-14] MEDS: THIAMINE HCL 100 MG TABLET GT SCH (08:33)
[2020-06-14 10:07] LABS: IMMUNOGLOBULIN A, SERUM 263 mg/dL (87-352); IMMUNOGLOBULIN G, SERUM 1378 mg/dL (586-1602); IMMUNOGLOBULIN M, SERUM 105 mg/dL (26-217)
--- NOTE | 2020-06-14 10:23 | NUR ---
JOVANNA received a call from patient's daughter Marlyn expressing concerns related to patient's care. Per Marlyn, she does not understand why the patient will be released from [facility] back to her facility. Per Marlyn, she is unsure what medically happening with the patient. JOVANNA provided affirmation regarding these concerns and will speak with patients RN to provide chandrika Cline with an update.
--- NOTE | 2020-06-14 10:25 | NUR ---
This SW spoke with MOMO Ortzi and provided daughter Marlyn's contact information to provide medical update. MOMO Ortiz expressed understanding and stated he will speak with the patient's daughter when he has a moment as he was finishing with a patient.
--- NOTE | 2020-06-14 14:45 | NUR ---
JOVANNA received a call from patient's daughter Marlyn expressing concerns related to patient's care. Per Marlyn, she does not understand why the patient will be released from [facility] back to her facility. JOVANNA transferred Marlyn to Case Management to explore the option of transferring the patient to a different hospital. SW to remain available for all needs regarding this patient.
--- NOTE | 2020-06-14 15:36 | NUR ---
ADMINISTERING BLOOD TRANSFUSION ORDERED WITH DIALYSIS. WILL MONITOR CLOSELY
--- NOTE | 2020-06-14 16:55 | NUR ---
RE[place] GIV[place] [facility] [place]. Addendum: 06/14/20 at 1657 by TOI CRUZ RN WRONG PATIENT.
--- NOTE | 2020-06-14 18:23 | NUR ---
PATIENT IN BED. NO ACUTE DISTRESS NOTED. PATIENT ALERT & ORIENTED X0, NONVERBAL. PATIENT ON MECHANICAL VENTILATOR, SATURATING WELL AT 97-100%. PATIENT DIALYSIS DONE TODAY, BLOOD TRANSFUSION DONE WITH IT. NO OUTPUT, JUST CLEANED. PATIENT G-TUBE IN PLACE, INTACT, PATENT. PATIENT RIGHT UPPER ARM MIDLINE IN PLACE, INTACT, PATENT, FLUSHED WELL. PATIENT SAFETY MEASURES MAINTAINED. CALL LIGHT WITHIN REACH. WILL ENDORSE PLAN OF CARE TO ONCOMING NURSE FOR CONTINUITY OF CARE
--- NOTE | 2020-06-14 19:30 | NUR ---
MS/RN OPENING NOTES RECEIVED PATIENT IN BED. PATIENT IS ALERT AND ORIENTED X 0, NON-VERBAL. PATIENT IS ON MECHANICAL VENTILATOR, SATURATING WELL AT 97-100%. PATIENT RECEIVED DIALYSIS TODAY, BLOOD TRANSFUSION DONE WHILE HD, NO OUTPUT, JUST CLEANED. PATIENT HAS G TUBE IN PLACE CURRENT OFF START TIME AT 2100 FEEDING NEPRO AT 45 ML/HR. PATIENT HAS RIGHT UPPER ARM MID LINE IN PLACE AND RIGHT SUB CLAVICLE HD CATH. SAFETY MEASURES ARE IN PLACE, BED IS LOCKED AND PLACED IN THE LOW POSITION, SIDE RAILS UP X 3. WILL CONTINUE TO MONITOR DURING SHIFT. Addendum: 06/14/20 at 2009 by SAMI ALVAREZ RN MS/RN NOTES CORRECTION, PATIENT IS ON T-PIECE COOL AEROSOL TRACH.
[2020-06-14] MEDS: ATORVASTATIN 40 MG TABLET GT SCH (21:02)
[2020-06-14] MEDS: INSULIN GLARGINE, 100 UNIT/ML CARTRIDGE SQ SCH (21:18)
[2020-06-15] MEDS: BLOOD SUGAR DIAGNOSTIC 1 EACH STRIP IN SCH ×5 (00:17→23:17)
[2020-06-15] MEDS: INSULIN REGULAR, HUMAN 100 UNIT/ML 3 ML VIAL SQ PRN ×5 (00:24→23:19)
[2020-06-15 05:00] VITALS: BP 155/48
[2020-06-15] MEDS: NEPRO 1,000 ML BOTTLE GT PRN (05:40)
--- NOTE | 2020-06-15 06:30 | NUR ---
MS/RN CLOSING NOTES PATIENT IN BED RESTING. PATIENT IS ALERT AND ORIENTED X 0, NON-VERBAL. PATIENT HAS T- PIECE COOL AEROSOL, TOLERATING WELL. PATIENT HAS G TUBE IN PLACE START TIME AT 2100 FEEDING NEPRO AT 45 ML/HR, NO RESIDUAL. PATIENT HAS RIGHT UPPER ARM MID LINE IN PLACE AND RIGHT SUB CLAVICLE HD CATH. PATIENT SUCTIONED PRN THROUGHOUT SHIFT. WOUND HAVE BEEN CLEAN AND DRESSINGS CHANGED. ALL PATIENTS NEEDS HAVE BEEN MET DURING SHIFT. SAFETY MEASURES ARE IN PLACE, BED IS LOCKED AND PLACED IN THE LOW POSITION, SIDE RAILS UP X 3. WILL ENDORSE CARE TO DAY SHIFT.
[2020-06-15 07:10] LABS: *WEST NILE VIRUS IgM, CSF Negative (Negative)
--- NOTE | 2020-06-15 07:35 | NUR ---
MS RN NOTES PATIENT RECEIVED IN BED SLEEPING, ALERT AND ORIENTED X 0, PATIENT IS NON-VERBAL AND PRESENTS WITH NO SIGNS OF PAIN OR DISCOMFORT AT THIS TIME. T-PIECE IN PLACE WITH COOL AEROSOL, TOLERATING SETTING WELL WITH NO SIGNS OF RESPIRATORY DISTRESS AT THIS TIME, WITH NO SOB NOTED, AND WITH NON-LABORED BREATHING. PATIENT G-TUBE FEEDING INTACT AND CURRENTLY INFUSING FEEDING AT 45ml/hr. RIGHT UPPER MIDLINE INTACT AND PATENT. SAFETY PRECAUTIONS IMPLEMENTED WITH THE BED LOCKED, BED IN THE LOWEST POSITION, BILATERAL SIDE RAILS UP, BED ALARM ON, AND CALL LIGHT WITHIN EASY REACH OF THE PATIENT. WILL CONTINUE TO MONITOR.
[2020-06-15 08:00] VITALS: BP 152/51
[2020-06-15 08:10] LABS: *SPE A/G RATIO 0.7 (0.7-1.7); *SPE ALBUMIN 2.4 g/dL (2.9-4.4); *SPE ALPHA-1-GLOBULIN 0.4 g/dL (0.0-0.4); *SPE ALPHA-2-GLOBULIN 1.1 g/dL (0.4-1.0); *SPE BETA GLOBULIN 0.7 g/dL (0.7-1.3); *SPE GLOBULIN, TOTAL 3.6 g/dL (2.2-3.9); *SPE M-SPIKE Not Observed g/dL (Not Observed); *SPEGAMMA GLOBULIN 1.3 g/dL (0.4-1.8)
[2020-06-15] MEDS: ACIDOPHILUS/BULGARICUS 1 EACH TAB.CHEW GT SCH (09:40)
[2020-06-15] MEDS: THIAMINE HCL 100 MG TABLET GT SCH (09:40)
[2020-06-15] MEDS: FLUCONAZOLE (100 MG) 100 MG TABLET PO SCH (09:40)
[2020-06-15] MEDS: DOCUSATE SODIUM 100 MG CAPSULE PO SCH (09:40)
[2020-06-15] MEDS: MEROPENEM 500 MG in IV NS 0.9% 50 ML IV SCH ×2 (09:41→20:15)
[2020-06-15] MEDS: LEVETIRACETAM SOL (5 ML) 100 MG/ML UDC GT SCH ×2 (09:41→21:43)
[2020-06-15] MEDS: PROSOURCE / PROSTAT (PYXIS) 30 ML UDC GT SCH ×3 (09:41→17:56)
[2020-06-15] MEDS: FAMOTIDINE (20 MG) 20 MG TABLET GT SCH (09:41)
[2020-06-15] MEDS: ASCORBIC ACID 500 MG TABLET GT SCH ×3 (09:41→17:55)
--- NOTE | 2020-06-15 10:30 | NUR ---
MS RN NOTES INFORMED HOSPITALIST ALEXSANDER HINTON ABOUT PATIENT'S PROCALCITONIN LEVEL OF 19.45 NO NEW ORDERS AT THIS TIME, BESIDES CBC AND BMP. WILL CARRY OUT ORDERS AND CONTINUE TO MONITOR PATIENT.
[2020-06-15 11:27] LABS: BASOPHILS # (AUTO) 0.1 /CMM (0.0-0.2); BASOPHILS % (AUTO) 0.4 % (0.0-2.0); EOSINOPHILS % (AUTO) 0.2 % (0.0-6.0); HEMATOCRIT 23 % (33-45); HEMOGLOBIN 7.1 g/dL (11.5-14.8); LYMPHOCYTES # (AUTO) 0.6 /CMM (0.8-4.8); LYMPHOCYTES % (AUTO) 3.1 % (20.0-44.0); MEAN CORPUSCULAR HGB CONC 31 g/dl (31.0-36.0); MEAN CORPUSCULAR VOLUME 99 fL (82-100); MONOCYTES # (AUTO) 0.8 /CMM (0.1-1.30); NEUTROPHILS # (AUTO) 18.9 /CMM (1.8-8.9); NEUTROPHILS % (AUTO) 92.3 % (43.0-81.0); PLATELET COUNT (AUTO) 468 /CMM (150-450); RED BLOOD CELL COUNT(AUTO) 2.29 MIL/uL (4.0-5.2); WHITE BLOOD COUNT (AUTO) 20.5 K/uL (4.3-11.0)
[2020-06-15 11:59] LABS: CALCIUM, SERUM 8.7 mg/dL (8.5-10.1); CREATININE 4.2 mg/dL (0.6-1.3); POTASSIUM 4.6 mmol/L (3.5-5.1)
--- NOTE | 2020-06-15 18:51 | NUR ---
MS RN NOTES PATIENT IN BED SLEEPING, ALERT AND ORIENTED X 0, PATIENT IS NON-VERBAL AND PRESENTS WITH NO SIGNS OF PAIN OR DISCOMFORT AT THIS TIME. TRACH COLLAR IN PLACE, TOLERATING SETTING WELL WITH NO SIGNS OF RESPIRATORY DISTRESS AT THIS TIME, WITH NO SOB NOTED, AND WITH NON-LABORED BREATHING. PATIENT G-TUBE SITE INTACT AND NO DRAINAGE OR LEAKAGE PRESENTS. RIGHT UPPER MIDLINE INTACT AND PATENT. MET ALL OF PATIENT'S NEEDS. SAFETY PRECAUTIONS IMPLEMENTED WITH THE BED LOCKED, BED IN THE LOWEST POSITION, BILATERAL SIDE RAILS UP, BED ALARM ON, AND CALL LIGHT WITHIN EASY REACH OF THE PATIENT. WILL ENDORSE PLAN OF CARE TO UPCOMING RN.
--- NOTE | 2020-06-15 19:13 | NUR ---
RN OPENING NOTES PATIENT SLEEPING IN BED. ALERT AND ORIENTED X 0 BUT RESPONSIVE TO VERBAL AND TACTILE STIMULI. NO INDICATIONS OF PAIN OR DISCOMFORT. WITH TRACH COLLAR CONNECTED TO 10LPM OF O2 AND TOLERATING WELL. WITH GT PATENT AND FLUSHING WELL. TUBE FEEDING CURRENTLY PAUSED AND TO BE RESUMED TONIGHT AT 2100. NO RESIDUAL NOTED. MIDLINE FLUSHING WELL AND INTACT. HD CATH INTACT. SAFETY MEASURES IN PLACE, WILL MONITOR PATIENT.
[2020-06-15 20:00] VITALS: BP 132/43
--- NOTE | 2020-06-15 21:00 | NUR ---
RN NOTE RESUMED TUBE FEEDING NEPRO @ 45ML/HOUR. WILL MONITOR TOLERANCE.
[2020-06-15] MEDS: ATORVASTATIN 40 MG TABLET GT SCH (21:43)
[2020-06-15] MEDS: INSULIN GLARGINE, 100 UNIT/ML CARTRIDGE SQ SCH (21:44)
--- NOTE | 2020-06-15 22:00 | NUR ---
RN NOTE PATIENT WITH ONE EPISODE OF LIQUID BROWN STOOL. BED BATH AND PM CARE COMPLETED. PT TOLERATED WELL. TUBE FEEDING RESUMED.
[2020-06-16] MEDS: NEPRO 1,000 ML BOTTLE GT PRN (01:00)
[2020-06-16 04:00] VITALS: BP 139/45
[2020-06-16] MEDS: BLOOD SUGAR DIAGNOSTIC 1 EACH STRIP IN SCH ×4 (05:54→23:12)
[2020-06-16] MEDS: INSULIN REGULAR, HUMAN 100 UNIT/ML 3 ML VIAL SQ PRN ×4 (05:57→23:09)
[2020-06-16 06:25] LABS: BASOPHILS % (AUTO) 0.1 % (0.0-2.0); LYMPHOCYTES # (AUTO) 0.5 /CMM (0.8-4.8); MONOCYTES # (AUTO) 0.7 /CMM (0.1-1.30)
[2020-06-16 06:50] LABS: EOSINOPHILS % (AUTO) 0.3 % (0.0-6.0); HEMATOCRIT 21 % (33-45); LYMPHOCYTES % (AUTO) 2.3 % (20.0-44.0); MEAN CORPUSCULAR HGB CONC 31 g/dl (31.0-36.0); MEAN CORPUSCULAR VOLUME 101 fL (82-100); NEUTROPHILS # (AUTO) 20.8 /CMM (1.8-8.9); NEUTROPHILS % (AUTO) 94.3 % (43.0-81.0); PLATELET COUNT (AUTO) 525 /CMM (150-450); RED BLOOD CELL COUNT(AUTO) 2.12 MIL/uL (4.0-5.2); WHITE BLOOD COUNT (AUTO) 22.1 K/uL (4.3-11.0)
[2020-06-16 06:55] LABS: CREATININE 5.1 mg/dL (0.6-1.3); MAGNESIUM 2.9 mg/dL (1.8-2.4); POTASSIUM 4.7 mmol/L (3.5-5.1)
--- NOTE | 2020-06-16 07:05 | NUR ---
RN NOTE RECEIVED ALERT FOR HGB 6.5. PAGED 37coins GROUP.
[2020-06-16 07:14] LABS: HEMOGLOBIN 6.5 g/dL (11.5-14.8)
--- NOTE | 2020-06-16 07:20 | NUR ---
RN NOTE PLUGMAN MARY JANE CALLED BACK WITH ORDER TO TRANSFUSE 1 UNIT OF PRBC WITH DIALYSIS TODAY, ORDER NOTED AND CARRIED OUT.
--- NOTE | 2020-06-16 07:25 | NUR ---
RN NOTE ENDORSED TO MORNING RN FOR CONTINUATION OF CARE.
[2020-06-16] MEDS: ACETAMINOPHEN 325 MG TABLET PO PRN ×2 (07:50→22:01)
[2020-06-16 07:52] LABS: PHOSPHORUS 8.3 mg/dL (2.5-4.9)
--- NOTE | 2020-06-16 07:58 | NUR ---
RN MS NOTE: PT RECEIVED IN BED EYES OPEN, NOT RESPONSIVE TO VERBAL STIMULI. PT WITH TRACH PORTEX #8, 10 L/MIN. OXYGEN SATURATION 99%. PT LAST ON HD 06/14. TEMP 99.3, COOLING MEASURES IMPLEMENTED. PT WITH YEFRI MIDLINE, AND RIGHT SUBCLAVIAN HD CATHETER. G-TUBE FEEDING TO BE PAUSED AT 1500 AND RESUMED AT 2100 TONIGHT. BED IN LOCKED LOWEST POSITION. ENDORSED BY PREVIOUS SHIFT, DAUGHTER WILL COME VISIT LATER THIS AM. ALL SAFETY MEASURES IN PLACE. WILL CONTINUE TO MONITOR CLOSELY.
[2020-06-16] MEDS: THIAMINE HCL 100 MG TABLET GT SCH (08:46)
[2020-06-16] MEDS: ACIDOPHILUS/BULGARICUS 1 EACH TAB.CHEW GT SCH (08:46)
[2020-06-16] MEDS: FAMOTIDINE (20 MG) 20 MG TABLET GT SCH (08:46)
[2020-06-16] MEDS: LEVETIRACETAM SOL (5 ML) 100 MG/ML UDC GT SCH ×2 (08:46→20:44)
[2020-06-16] MEDS: ASCORBIC ACID 500 MG TABLET GT SCH ×3 (08:46→17:32)
[2020-06-16] MEDS: DOCUSATE SODIUM 100 MG CAPSULE PO SCH (08:47)
[2020-06-16] MEDS: PROSOURCE / PROSTAT (PYXIS) 30 ML UDC GT SCH ×3 (08:50→17:31)
[2020-06-16] MEDS: MEROPENEM 500 MG in IV NS 0.9% 50 ML IV SCH ×2 (08:50→20:44)
[2020-06-16 10:00] VITALS: BP 137/69
--- NOTE | 2020-06-16 11:22 | NUR ---
MACHINE FINISHER NOTE: 1 UNIT BLOOD GIVEN TO RN PRIVATE DUTY TO TRANSFUSE Addendum: 06/16/20 at 1910 by MICKY MOLINA RN MS, NOT TELE
--- NOTE | 2020-06-16 12:00 | NUR ---
RN MS NOTE: TEMPERATURE RECHECKED AFTER ELEVATED TEMPERATURE OF 99.0 OBSERVED WITH COOLING MEASURES AND ACETAMINOPHEN ADMINISTERED. TEMPERATURE 98.6, COOLING MEASURES D/C..
--- NOTE | 2020-06-16 13:00 | NUR ---
BUILDING STONECUTTER NOTE: FAMILY ARRIVED ON UNIT. ALL NEEDS OF FAMILY AND PATIENT ATTENDED. Addendum: 06/16/20 at 1909 by MICKY MOLINA RN MS, NOT TELE
--- NOTE | 2020-06-16 14:00 | NUR ---
MS NOTE RN: TURNER MACHINE REPORTS I UNIT RBC TRANSFUSED, WITH NO COMPLICATIONS. NO OVERALL VOLUME OUTPUT REPORTED.
[2020-06-16] MEDS: SEVELAMER CARBONATE 800 MG POWD.PACK GT SCH ×2 (15:02→17:31)
[2020-06-16 15:42] LABS: BASOPHILS % (AUTO) 0.2 % (0.0-2.0); EOSINOPHILS % (AUTO) 0.5 % (0.0-6.0); HEMATOCRIT 27 % (33-45); HEMOGLOBIN 8.5 g/dL (11.5-14.8); LYMPHOCYTES # (AUTO) 0.4 /CMM (0.8-4.8); LYMPHOCYTES % (AUTO) 1.8 % (20.0-44.0); MEAN CORPUSCULAR HGB CONC 32 g/dl (31.0-36.0); MEAN CORPUSCULAR VOLUME 98 fL (82-100); MONOCYTES # (AUTO) 0.5 /CMM (0.1-1.30); MONOCYTES % (AUTO) 1.9 % (2.0-12.0); NEUTROPHILS # (AUTO) 23.3 /CMM (1.8-8.9); NEUTROPHILS % (AUTO) 95.6 % (43.0-81.0); PLATELET COUNT (AUTO) 495 /CMM (150-450); RED BLOOD CELL COUNT(AUTO) 2.74 MIL/uL (4.0-5.2); WHITE BLOOD COUNT (AUTO) 24.4 K/uL (4.3-11.0)
--- NOTE | 2020-06-16 19:14 | NUR ---
RN MS NOTE: PT VITALS REMAIN STABLE AT THIS TIME. NO ACUTE RESPIRATORY DISTRESS. NO PAIN. NO SOB. PATIENT NON-VERBAL WITH EYES OPEN. PT ON PRESCRIBED TRACH SETTINGS, PORTEX #8, 10L/MIN O2, O2 SATURATION 100%. PATIENT REPOSITIONED Q2. PT ON NEPHRO FEEDING AT 45 ML/HOUR. TEMPORARILY D/C AT 1500, TO RESUME AT 2100, ENDORSED TO LENCHO BARR. PT HAS YEFRI MIDLINE, INTACT AND PATENT. PT HAS INTACT RIGHT SUBCLAVIAN HD CATHETER. BED IN LOWEST LOCKED POSITION. HOB ELEVATED 40 DEGREES. CALL LIGHT WITHIN REACH. REPORT GIVEN TO LENCHO BARR FOR LASHANDA. Addendum: 06/16/20 at 1923 by RANDI OCONNELL RN MOMO MS NOTE: PT VITALS REMAIN STABLE AT THIS TIME. NO ACUTE RESPIRATORY DISTRESS. NO PAIN. NO SOB. PATIENT NON-VERBAL WITH EYES OPEN. PT ON PRESCRIBED TRACH SETTINGS, PORTEX #8, 10L/MIN O2, O2 SATURATION 100%. PATIENT REPOSITIONED Q2. PT ON NEPHRO FEEDING AT 45 ML/HOUR. TEMPORARILY D/C AT 1500, TO RESUME AT 2100, ENDORSED TO LENCHO BARR. PT HAS YEFRI MIDLINE, INTACT AND PATENT WITH TKO INFUSION 10 ML/HR NO SIGNS OF INFILTRATION OR INFECTION . PT HAS INTACT RIGHT SUBCLAVIAN HD CATHETER. BED IN LOWEST LOCKED POSITION. ALL SAFETY MEASURE IMPLEMENTED PER HOSPITAL POLICY HOB ELEVATED 40 DEGREES. CALL LIGHT WITHIN REACH. WOUND TX COMPLETED ALL MEDICATIONS GIVEN. REPORT GIVEN TO LENCHO BARR FOR LASHANDA.
--- NOTE | 2020-06-16 19:15 | NUR ---
RN OPENING NOTES: RECEIVED PT A/OX1; PT NON VERBAL IN BED RESTING COMFORTABLY. PATIENT IN NO S/SX OF ACUTE DISTRESS AT THIS TIME. NO SOB NOTED. PATIENT'S BREATHING IS EVEN AND UNLABORED. PT WITH TRACH PORTEX #8, 10 L/MIN; TOLERATING WELL WITH OXYGEN SATURATION OF 97%. AMBU BAG AT BED SIDE ALARMS SET PER PROTOCOL AND AUDIBLE. G TUBE FLUSHING AND PATENT; SITE CLEAN DRY AND INTACT; NO RESIDUAL NOTED; AND WITH ONGOING FEEDING OF NEPHRO @45ML/HR; TO BE RESUMED @ 2100 TONIGHT. NOTED IV SITE ON R UA MIDLINE; PATENT, INTACT AND FLUSHING WELL NO S/S OF INFECTION OR INFILTRATION. PT ALSO HAS R SUBCLAVIAN HD CATH. PATENT AND INTACT. SAFETY MEASURES HAVE BEEN PROVIDED AND IMPLEMENTED. PATIENT BED ALARM IS ON. HEAD OF BED ELEVATED. BED IS LOCKED, IN LOWEST POSITION AND SIDE RAILS UP. CALL LIGHT WITHIN REACH OF THE PATIENT. ISOLATION PRECAUTIONS IN PLACE. WILL CONTINUE TO MONITOR AND REASSESS FOR ANY CHANGES.
[2020-06-16] MEDS: HYDROCODONE/APAP 5/325MG TABLET PO PRN (19:40)
--- NOTE | 2020-06-16 21:00 | NUR ---
RN NOTES RESUME FEEDING OF NEPHRO @45MLS/HR. MEDICINAL CHEMIST MADE AWARE. WILL CONTINUE TO MONITOR AND REASSESS FOR ANY CHANGES THROUGHOUT THE SHIFT.
[2020-06-16 22:00] VITALS: BP 122/60
--- NOTE | 2020-06-16 22:00 | NUR ---
RN NOTES NO NOTED CHANGES TO PATIENT CONDITION/STATUS. FLUME WORKER MADE AWARE. WILL CONTINUE TO MONITOR AND REASSESS FOR ANY CHANGES THROUGHOUT THE SHIFT.
[2020-06-16] MEDS: ATORVASTATIN 40 MG TABLET GT SCH (22:01)
[2020-06-16] MEDS: INSULIN GLARGINE, 100 UNIT/ML CARTRIDGE SQ SCH (23:06)
[2020-06-17] MEDS ORDERED: LIDOCAINE 1% INJ 50 ML MDV IJ ONE (00:30)
--- NOTE | 2020-06-17 02:00 | NUR ---
RN NOTES NO NOTED CHANGES TO PATIENT CONDITION/STATUS. WELL TESTER MADE AWARE. WILL CONTINUE TO MONITOR AND REASSESS FOR ANY CHANGES THROUGHOUT THE SHIFT.
[2020-06-17] MEDS: NEPRO 1,000 ML BOTTLE GT PRN (03:27)
--- NOTE | 2020-06-17 04:00 | NUR ---
RN NOTES NO NOTED CHANGES TO PATIENT CONDITION/STATUS. SOLE LAYER HAND MADE AWARE. WILL CONTINUE TO MONITOR AND REASSESS FOR ANY CHANGES UNTIL THE END OF THE SHIFT.
[2020-06-17] MEDS: BLOOD SUGAR DIAGNOSTIC 1 EACH STRIP IN SCH ×4 (05:07→23:30)
[2020-06-17] MEDS: INSULIN REGULAR, HUMAN 100 UNIT/ML 3 ML VIAL SQ PRN ×2 (05:09→12:56)
[2020-06-17 06:26] LABS: BASOPHILS % (AUTO) 0.1 % (0.0-2.0); EOSINOPHILS % (AUTO) 0.9 % (0.0-6.0); HEMATOCRIT 25 % (33-45); HEMOGLOBIN 7.7 g/dL (11.5-14.8); LYMPHOCYTES # (AUTO) 0.4 /CMM (0.8-4.8); LYMPHOCYTES % (AUTO) 2.4 % (20.0-44.0); MEAN CORPUSCULAR HGB CONC 31 g/dl (31.0-36.0); MEAN CORPUSCULAR VOLUME 99 fL (82-100); MONOCYTES # (AUTO) 0.8 /CMM (0.1-1.30); MONOCYTES % (AUTO) 4.9 % (2.0-12.0); NEUTROPHILS # (AUTO) 15.4 /CMM (1.8-8.9); NEUTROPHILS % (AUTO) 91.7 % (43.0-81.0); PLATELET COUNT (AUTO) 439 /CMM (150-450); RED BLOOD CELL COUNT(AUTO) 2.47 MIL/uL (4.0-5.2); WHITE BLOOD COUNT (AUTO) 16.8 K/uL (4.3-11.0)
--- NOTE | 2020-06-17 06:34 | NUR ---
RN NOTE: PATIENT REMAINS IN ROOM. NO SIGNS OF RESPIRATORY DISTRESS. SAFETY MEASURES IMPLEMENTED, BED IN LOWEST POSITION, LOCKED, SIDE RAILS UP, CALL LIGHT WITHIN REACH. ALL NEEDS AND ORDERS ADDRESSED DURING THE SHIFT. ALL DUE MEDS GIVEN ORDERED & SCHEDULED ; PATIENT TOLERATED WELL.PATIENT KEPT CLEAN AND COMFORTABLE WITHIN THE SHIFT. WILL INFORM AM RN REGARDING NEED FOR THE CONSENT FOR THE BONE MARROW BIOPSY, KIT HAS BEEN PREPARED AND WILL HAND OVER TO AM RN. ENDORSED TO INCOMING SHIFT RN FOR CONTINUITY OF CARE.
[2020-06-17 07:13] LABS: CALCIUM, SERUM 8.9 mg/dL (8.5-10.1); CREATININE 3.6 mg/dL (0.6-1.3); MAGNESIUM 2.4 mg/dL (1.8-2.4); PHOSPHORUS 6.2 mg/dL (2.5-4.9); POTASSIUM 4.4 mmol/L (3.5-5.1)
--- NOTE | 2020-06-17 07:30 | NUR ---
RN OPENING NOTE patient in bed, A/O x1 non verbal, on trach collar Portex 8 @ 10L of O2, tolerating well, NO distress, NO SOB, Med surg status, Bed bound, dressings noted on both feet, intact, G-tube noted, running Nephro @ 45cc/hr, tolerating well, auscultating, no residual noted, IV line R UA midline, and R subclavian HD cath, both intact and patent. Safety measures in place,bed locked, call light in reach, alarms is working, will cont to monitor
[2020-06-17] MEDS: THIAMINE HCL 100 MG TABLET GT SCH (08:35)
[2020-06-17] MEDS: ASCORBIC ACID 500 MG TABLET GT SCH ×3 (08:35→18:53)
[2020-06-17] MEDS: FAMOTIDINE (20 MG) 20 MG TABLET GT SCH (08:35)
[2020-06-17] MEDS: DOCUSATE SODIUM 100 MG CAPSULE PO SCH (08:35)
[2020-06-17] MEDS: ACIDOPHILUS/BULGARICUS 1 EACH TAB.CHEW GT SCH (08:35)
[2020-06-17] MEDS: LEVETIRACETAM SOL (5 ML) 100 MG/ML UDC GT SCH ×2 (08:36→23:30)
[2020-06-17] MEDS: SEVELAMER CARBONATE 800 MG POWD.PACK GT SCH ×3 (08:48→18:52)
[2020-06-17] MEDS: PROSOURCE / PROSTAT (PYXIS) 30 ML UDC GT SCH ×3 (09:05→17:00)
[2020-06-17] MEDS: MEROPENEM 500 MG in IV NS 0.9% 50 ML IV SCH ×2 (09:08→23:29)
[2020-06-17 10:00] VITALS: BP 122/44
--- NOTE | 2020-06-17 11:29 | NUR ---
spoke with daughter about consent form for bone marrow aspiration, no consent yet, she will call back
--- NOTE | 2020-06-17 11:30 | NUR ---
temp 100.8, will give PRN Tylenol
[2020-06-17] MEDS: ACETAMINOPHEN 325 MG TABLET PO PRN ×2 (11:45→23:48)
[2020-06-17 12:00] VITALS: BP 142/42
--- NOTE | 2020-06-17 12:08 | NUR ---
WOUND CARE CONSULT: WOUND CONSULT REQUESTED BY NURSING STAFF FOR [facility]. PT NOTED TO HAVE DEEP TISSUE INJURY IN EVOLUTION OVER PREVIOUS SCARRING. SCARRING WAS NOTED TO BE PRESENT ON ADMISSION. PT NOTED TO HAVE MULTIPLE CO-MORBIDITIES INCLUDING GANGRENE OF LOWER EXTREMITIES, SEPSIS, END STAGE RENAL DISEASE AND ANEMIA. DUE TO MULTIPLE CO-MORBIDITIES, FURTHER SKIN BREAKDOWN MAY BE UNAVOIDABLE. RECOMMENDATIONS MADE FOR SKIN PROTECTION AND WOUND CARE. DEFER TO DPM CURRENTLY ON CASE FOR LOWER EXTREMITIES. MD IN AGREEMENT WITH PLAN OF CARE. PT IS ON LEANDRA ISOFLEX LOW AIRLOSS BED. PT IS INCONTINENT OF STOOL. Addendum: 06/17/20 at 1213 by NORA MONTEZ WNDNU Amended: Links added.
--- NOTE | 2020-06-17 12:30 | NUR ---
Rechecked temp is 98.6
[2020-06-17] MEDS ORDERED: Insulin Glargine,Hum SQ (15:56)
[2020-06-17] MEDS ORDERED: MERO500V21 IV (15:56)
[2020-06-17] MEDS ORDERED: Nepro GT (15:56)
[2020-06-17 16:00] VITALS: BP 145/47
--- NOTE | 2020-06-17 20:20 | NUR ---
Discharge notes Picked up by [facility] tr[facility]illo unit 38, discharge paperwork provided, ID bands removed, report given to Ryan
--- NOTE | 2020-06-17 22:58 | NUR ---
RN OPENING NOTES PT ARRIVED FROM ED. NONVERBAL. ON TRACH COLLAR PORTEX @10L OF O2 TOLERATING WELL WITH NO S/S OF SOB OR SHORTNESS OF BREATH. SATURATING AT 98% PT IS BED BOUND. DRESSINGS INTACT ON FEET AND MEPILEX ON SACRUM. G TUBE HAS BEEN AUSCULTATED TO CONFIRM PLACEMENT, FLUSHED AND PATENT. LESS THAN 5 CC OF RESIDUALS WHEN CHECKED. YEFRI MIDLINE NOTED DRESSING INTACT. FLUSHED. PT HAS FEVER OF 100.5 UPON ADMISSION TO UNIT. TYLENOL GIVEN. WILL REASSESS. VITAL SIGNS BP 125/72 HR 86 O2 SAT 98%. NO S/S OF PAIN. BED IS LOCKED IN LOWEST POSITION WITH BED ALARM ON. HOB RAISED. CALL LIGHT WITHIN REACH. WILL CONTINUE TO MONITOR.
--- NOTE | 2020-06-17 23:05 | NUR ---
NO BELONGINGS NOTED WHEN PT ARRIVED. CONFIRMED WITH ED NO PT BELONGINGS UPON ARRIVAL TO UNIT.
[2020-06-17] MEDS: ATORVASTATIN 40 MG TABLET GT SCH (23:29)
--- NOTE | 2020-06-17 23:45 | NUR ---
PT SEEN BY RT, GIVEN BREATHING TREATMENT.
--- NOTE | 2020-06-17 23:45 | NUR ---
PT RECHECKED FOR TEMPERATURE, 99.6. WILL CONTINUE TO MONITOR.
--- NOTE | 2020-06-18 00:20 | NUR ---
BLOOD SUGAR CHECK OF 189. GIVEN LANTUS ORDERED, AND 4 UNITS OF REGULAR FOR COVERAGE PER SLIDING SCALE ORDERED. PT IS ON NEPRO G TUBE FEEDING. TOLERATING WELL. WILL CONTINUE TO MONITOR.
[2020-06-18] MEDS: INSULIN GLARGINE, 100 UNIT/ML CARTRIDGE SQ SCH ×2 (00:27→22:03)
[2020-06-18] MEDS: INSULIN REGULAR, HUMAN 100 UNIT/ML 3 ML VIAL SQ PRN ×4 (00:28→23:53)
--- NOTE | 2020-06-18 03:12 | NUR ---
WOUND TREATMENTS PROVIDED ORDERED. WILL CONTINUE TO MONITOR.
[2020-06-18 04:00] VITALS: BP 127/52
--- NOTE | 2020-06-18 04:50 | NUR ---
ON 040 VITALS PT STILL HAS 99.5 TEMPERATURE. WILL PERFORM NON PHARM INTERVENTIONS. COOL ENVIRONMENT. NO BLANKET. AND GIVE TYLENOL PRN FOR FEVER. WILL CONTINUE TO MONITOR.
[2020-06-18] MEDS: BLOOD SUGAR DIAGNOSTIC 1 EACH STRIP IN SCH ×3 (06:29→17:32)
[2020-06-18] MEDS: ACETAMINOPHEN 325 MG TABLET PO PRN ×2 (06:30→12:20)
--- NOTE | 2020-06-18 07:12 | NUR ---
RN CLOSING NOTES PT IS CURRENTLY ASLEEP. STILL ON PORTEX8 AT 10L. TOLERATING WELL. NO SIGNS OF SOB OR REP DISTRESS. IV SITE STILL INTACT G TUBE STILL INFUSING 45 ML/HR. TOLERATING WELL. HOB RAISED. PT RESTED WELL THROUGHOUT THE NIGHT. BED IS LOCKED IN LOWEST POSITION WITH CALL LIGHT IN REACH BED ALARM ON. WILL ENDORSE TO AM NURSE FOR CONTINUATION OF CARE.
--- NOTE | 2020-06-18 08:00 | NUR ---
RN OPENING NOTE PATIENT VITALS STABLE, NO SIGNS OF ACUTE RESPIRATORY DISTRESS AT THIS TIME. G-TUBE PATENT AND INTACT RUNNING AT 45ML/HR, TOLERATED WELL. R UPPER ARM 20 AND MELITON MIDLINE NO SIGNS OF INFECTION, NO SIGNS OF INFILTRATION. PATIENT AND INTACT. WOUND TX COMPLETE MEDICATION COMPLETED . BED LOCKED LOWEST POSITION CALL LIGHT WITH IN REACH ALL SAFETY MEASURES IMPLEMENTED PER HOSPITAL POLICY.WILL CONT TO MONITOR
[2020-06-18 10:00] VITALS: BP 139/47
[2020-06-18] MEDS: MEROPENEM 500 MG in IV NS 0.9% 50 ML IV SCH ×2 (10:27→20:53)
[2020-06-18] MEDS: DOCUSATE SODIUM 100 MG CAPSULE PO SCH (10:28)
[2020-06-18] MEDS: LEVETIRACETAM SOL (5 ML) 100 MG/ML UDC GT SCH ×2 (10:28→20:53)
[2020-06-18] MEDS: ASCORBIC ACID 500 MG TABLET GT SCH ×3 (10:28→17:32)
[2020-06-18] MEDS: SEVELAMER CARBONATE 800 MG POWD.PACK GT SCH ×3 (10:28→17:32)
[2020-06-18] MEDS: THIAMINE HCL 100 MG TABLET GT SCH (10:28)
[2020-06-18] MEDS: FAMOTIDINE (20 MG) 20 MG TABLET GT SCH (10:28)
[2020-06-18] MEDS: ACIDOPHILUS/BULGARICUS 1 EACH TAB.CHEW GT SCH (10:28)
[2020-06-18] MEDS: PROSOURCE / PROSTAT (PYXIS) 30 ML UDC GT SCH ×3 (10:29→17:33)
[2020-06-18 11:35] LABS: BASOPHILS # (AUTO) 0.2 /CMM (0.0-0.2); BASOPHILS % (AUTO) 0.9 % (0.0-2.0); EOSINOPHILS % (AUTO) 0.8 % (0.0-6.0); HEMATOCRIT 22 % (33-45); LYMPHOCYTES # (AUTO) 0.5 /CMM (0.8-4.8); LYMPHOCYTES % (AUTO) 2.6 % (20.0-44.0); MEAN CORPUSCULAR HGB CONC 31 g/dl (31.0-36.0); MEAN CORPUSCULAR VOLUME 100 fL (82-100); MONOCYTES # (AUTO) 0.6 /CMM (0.1-1.30); MONOCYTES % (AUTO) 3.1 % (2.0-12.0); NEUTROPHILS # (AUTO) 18.5 /CMM (1.8-8.9); NEUTROPHILS % (AUTO) 92.6 % (43.0-81.0); PLATELET COUNT (AUTO) 496 /CMM (150-450); RED BLOOD CELL COUNT(AUTO) 2.22 MIL/uL (4.0-5.2)
[2020-06-18 11:43] LABS: CALCIUM, SERUM 8.9 mg/dL (8.5-10.1); CREATININE 4.7 mg/dL (0.6-1.3); POTASSIUM 4.7 mmol/L (3.5-5.1)
[2020-06-18 11:49] LABS: HEMOGLOBIN 6.9 g/dL (11.5-14.8)
[2020-06-18 13:49] LABS: BAND % (MANUAL) 1 % (0.0-5.0); EOSINOPHILS % (MANUAL) 1 % (0-4); LYMPHOCYTES % (MANUAL) 1 % (16-48); MONOCYTES % (MANUAL) 1 % (0-11.0); NEUTROPHILS % (MANUAL) 96 (42-76)
[2020-06-18] MEDS ORDERED: ACETAMINOPHEN 325 MG TABLET PO ONE (18:30)
[2020-06-18] MEDS ORDERED: diphenhydrAMINE HCL 50 MG/ML VIAL IV ONE (18:30)
--- NOTE | 2020-06-18 19:00 | NUR ---
RN CLOSING NOTE NO CHANGE IN PATIENT CONDITION AT THIS TIME PATIENT VITALS STABLE, NO SIGNS OF ACUTE RESPIRATORY DISTRESS AT THIS TIME. R UPPER ARM 20 AND MELITON MIDLINE . NO SIGNS OF INFECTION, NO SIGNS OF INFILTRATION. NO S/S OF HYPO/HYPERGLYCEMIA NOTED. PATIENT CLEAN AND DRY. WOUND TX COMPLETE MEDICATION COMPLETED . BED LOCKED LOWEST POSITION CALL LIGHT WITH IN REACH ALL SAFETY MEASURES IMPLEMENTED PER HOSPITAL POLICY.ENDORSED TO ONCOMING SHIFT MOMO MCMAHON
[2020-06-18 20:00] VITALS: BP 144/62
--- NOTE | 2020-06-18 20:00 | NUR ---
RECEIVED PT IN BED, PT IS NON VERBAL OPENS EYES TO TOUCH. PT IS ON 10 L VIA TRECH SATING 92%. PT HAS G TUBE NEPRO RUNNING AT 45 ML/H, G TUBE IS PATENT AND FLUSHES WELL, NO RESIDUAL NOTED. PT HAS YEFRI 18 G S/L. SAFETY MEASURES IN PLACE
--- NOTE | 2020-06-18 21:55 | NUR ---
BS IS NOT TRANSFERRED FROM DEVICE. BS IS 163.
[2020-06-18] MEDS: ATORVASTATIN 40 MG TABLET GT SCH (22:09)
[2020-06-18] MEDS: NEPRO 1,000 ML BOTTLE GT PRN (23:58)
--- NOTE | 2020-06-19 | NUR ---
RN NOTE DATA IS NOT TRANSFERRED FROM GLUCOMETER . BLOOD SUGAR IS 156 FOR 0000 O'CLOCK.
[2020-06-19] MEDS: BLOOD SUGAR DIAGNOSTIC 1 EACH STRIP IN SCH ×5 (00:23→22:38)
[2020-06-19 04:00] VITALS: BP 133/51
[2020-06-19] MEDS: ACETAMINOPHEN 325 MG TABLET PO PRN ×3 (04:30→18:36)
--- NOTE | 2020-06-19 05:30 | NUR ---
RN NOTE PT HAD TEMP 100.6, AT 0400 TYLENOL 650 MG GIVEN WITH ICE PACK TEMP DROPPED TO 98.9.
[2020-06-19] MEDS: INSULIN REGULAR, HUMAN 100 UNIT/ML 3 ML VIAL SQ PRN ×4 (06:07→22:37)
--- NOTE | 2020-06-19 06:08 | NUR ---
RN NOTE BS AT 0600 IS 166.
--- NOTE | 2020-06-19 07:10 | NUR ---
pt remained stable during my shift, no changes. report given to incoming shift for frances.
[2020-06-19 07:40] LABS: BASOPHILS % (AUTO) 0.2 % (0.0-2.0); EOSINOPHILS % (AUTO) 1.2 % (0.0-6.0); LYMPHOCYTES # (AUTO) 0.7 /CMM (0.8-4.8); LYMPHOCYTES % (AUTO) 3.8 % (20.0-44.0); MEAN CORPUSCULAR HGB CONC 31 g/dl (31.0-36.0); MEAN CORPUSCULAR VOLUME 99 fL (82-100); MONOCYTES # (AUTO) 0.8 /CMM (0.1-1.30); MONOCYTES % (AUTO) 4.1 % (2.0-12.0); NEUTROPHILS # (AUTO) 17.8 /CMM (1.8-8.9); NEUTROPHILS % (AUTO) 90.7 % (43.0-81.0); PLATELET COUNT (AUTO) 497 /CMM (150-450); RED BLOOD CELL COUNT(AUTO) 2.01 MIL/uL (4.0-5.2); WHITE BLOOD COUNT (AUTO) 19.7 K/uL (4.3-11.0)
[2020-06-19 07:47] LABS: HEMOGLOBIN 6.2 g/dL (11.5-14.8)
[2020-06-19 07:48] LABS: HEMATOCRIT 20 % (33-45)
--- NOTE | 2020-06-19 07:58 | NUR ---
Notified to nataliia CHEW re; hgb 6.2 and hct 20 stated 1 units PRBC Today with HD and will carried out as ordered
[2020-06-19 08:07] LABS: CREATININE 5.6 mg/dL (0.6-1.3); MAGNESIUM 3.1 mg/dL (1.8-2.4); PHOSPHORUS 7.9 mg/dL (2.5-4.9); POTASSIUM 5.2 mmol/L (3.5-5.1)
[2020-06-19] MEDS: LEVETIRACETAM SOL (5 ML) 100 MG/ML UDC GT SCH ×2 (08:10→22:29)
[2020-06-19] MEDS: ACIDOPHILUS/BULGARICUS 1 EACH TAB.CHEW GT SCH (08:10)
[2020-06-19] MEDS: PROSOURCE / PROSTAT (PYXIS) 30 ML UDC GT SCH ×3 (08:10→17:42)
[2020-06-19] MEDS: ASCORBIC ACID 500 MG TABLET GT SCH ×3 (08:11→17:41)
[2020-06-19] MEDS: FAMOTIDINE (20 MG) 20 MG TABLET GT SCH (08:11)
[2020-06-19] MEDS: DOCUSATE SODIUM 100 MG CAPSULE PO SCH (08:11)
[2020-06-19] MEDS: THIAMINE HCL 100 MG TABLET GT SCH (08:11)
[2020-06-19] MEDS: SEVELAMER CARBONATE 800 MG POWD.PACK GT SCH ×3 (08:12→17:42)
[2020-06-19 08:14] LABS: EOSINOPHILS % (MANUAL) 1 % (0-4); LYMPHOCYTES % (MANUAL) 4 % (16-48); MONOCYTES % (MANUAL) 3 % (0-11.0); NEUTROPHILS % (MANUAL) 92 (42-76)
[2020-06-19] MEDS: MEROPENEM 500 MG in IV NS 0.9% 50 ML IV SCH ×2 (08:20→22:31)
[2020-06-19 12:00] VITALS: BP 133/51
[2020-06-19 15:53] VITALS: BP 111/48
[2020-06-19 16:08] VITALS: BP 110/50
[2020-06-19] MEDS: ONDANSETRON HCL/PF 4 MG/2 ML VIAL IVP PRN (18:36)
--- NOTE | 2020-06-19 19:26 | NUR ---
RN CLOSING NOTE PATIENT'S VITALS STABLE, NO SIGNS OF ACUTE RESPIRATORY DISTRESS AT THIS TIME. HOB ELEVATED AT ALL TIMES. G-TUBE PATENT AND INTACT RUNNING AT 45ML/HR, FEEDING TOLERATED WELL. R UPPER ARM 20 AND MELITON MIDLINE NO SIGNS OF INFECTION, NO SIGNS OF INFILTRATION. WOUND TX COMPLETE, DRESSING DRY/INTACT. MEDICATION ADMINISTERED FOR NAUSEA AND ELEVATED TEMP . BED LOCKED LOWEST POSITION CALL LIGHT WITHIN REACH. ALL SAFETY MEASURES IMPLEMENTED PER HOSPITAL POLICY.ENDORSED TO GLYCERIN SUPERVISOR NURSE ALE
[2020-06-19 20:00] VITALS: BP 149/66
[2020-06-19] MEDS: ATORVASTATIN 40 MG TABLET GT SCH (22:29)
[2020-06-19] MEDS: INSULIN GLARGINE, 100 UNIT/ML CARTRIDGE SQ SCH (22:36)
[2020-06-20 04:00] VITALS: BP 141/75
--- NOTE | 2020-06-20 04:55 | NUR ---
RN notes In bed, resting comfortably with no distress noted. Breathing even and unlabored. On T-piece, tolerating well. Suctioned large amount of semi loose yellowish secretion. Obtunded, non verbal. No physical manifestation of pain or discomfort. Gtube in place, patent feeding at 45mls/hr tolerating well. Kept clean and dry. Will endorse to next shift for continuity of care.
[2020-06-20] MEDS: BLOOD SUGAR DIAGNOSTIC 1 EACH STRIP IN SCH ×3 (05:56→17:27)
[2020-06-20] MEDS: INSULIN REGULAR, HUMAN 100 UNIT/ML 3 ML VIAL SQ PRN ×2 (05:57→12:41)
--- NOTE | 2020-06-20 08:00 | NUR ---
MS RN OPENING NOTES Received Patient resting in bed. Obtunded. VS stable with no acute distress. Breathing even and unlabored on 10LPM via Trachea and Tpiece. Gtube in place and patent with Nephro infusing at 45ml/hr. YEFRI Midline intact, patent and flushing well. Safety precautions in place. Bed locked and set to lowest position with side raills x 2 up. All needs rendered at this time. Call light within reach. Will continue to monitor.
[2020-06-20] MEDS: FAMOTIDINE (20 MG) 20 MG TABLET GT SCH (09:17)
[2020-06-20] MEDS: THIAMINE HCL 100 MG TABLET GT SCH (09:17)
[2020-06-20] MEDS: ASCORBIC ACID 500 MG TABLET GT SCH ×3 (09:17→17:27)
[2020-06-20] MEDS: LEVETIRACETAM SOL (5 ML) 100 MG/ML UDC GT SCH ×2 (09:17→21:13)
[2020-06-20] MEDS: ACIDOPHILUS/BULGARICUS 1 EACH TAB.CHEW GT SCH (09:17)
[2020-06-20] MEDS: DOCUSATE SODIUM 100 MG CAPSULE PO SCH (09:17)
[2020-06-20] MEDS: SEVELAMER CARBONATE 800 MG POWD.PACK GT SCH ×3 (09:17→17:27)
[2020-06-20] MEDS: MEROPENEM 500 MG in IV NS 0.9% 50 ML IV SCH ×2 (09:18→21:24)
[2020-06-20] MEDS: PROSOURCE / PROSTAT (PYXIS) 30 ML UDC GT SCH ×3 (09:19→17:29)
[2020-06-20 09:47] LABS: BASOPHILS # (AUTO) 0.1 /CMM (0.0-0.2); BASOPHILS % (AUTO) 0.4 % (0.0-2.0); EOSINOPHILS % (AUTO) 0.9 % (0.0-6.0); HEMATOCRIT 23 % (33-45); HEMOGLOBIN 7.5 g/dL (11.5-14.8); LYMPHOCYTES # (AUTO) 0.5 /CMM (0.8-4.8); LYMPHOCYTES % (AUTO) 2.7 % (20.0-44.0); MEAN CORPUSCULAR HGB CONC 32 g/dl (31.0-36.0); MEAN CORPUSCULAR VOLUME 97 fL (82-100); MONOCYTES # (AUTO) 0.8 /CMM (0.1-1.30); MONOCYTES % (AUTO) 4.7 % (2.0-12.0); NEUTROPHILS # (AUTO) 15.6 /CMM (1.8-8.9); NEUTROPHILS % (AUTO) 91.3 % (43.0-81.0); PLATELET COUNT (AUTO) 436 /CMM (150-450); RED BLOOD CELL COUNT(AUTO) 2.39 MIL/uL (4.0-5.2); WHITE BLOOD COUNT (AUTO) 17.1 K/uL (4.3-11.0)
[2020-06-20 11:04] LABS: CALCIUM, SERUM 8.8 mg/dL (8.5-10.1); CREATININE 4.1 mg/dL (0.6-1.3); MAGNESIUM 2.7 mg/dL (1.8-2.4); POTASSIUM 4.3 mmol/L (3.5-5.1)
--- NOTE | 2020-06-20 15:46 | NUR ---
RT Pt received trached on cool aerosol 40%. Vent alarms are set and audible with BVM by bedside. Spare trach by bedside. No SOB or respiratory distress noted at this time. Addendum: 06/20/20 at 1656 by ROSALVA BLAKELY RT Amended: Links added.
--- NOTE | 2020-06-20 18:35 | NUR ---
MS RN CLOSING NOTES Patient resting in bed. Obtunded. VS stable with no acute distress. Breathing even and unlabored on 10LPM via Trachea and Tpiece. Gtube in place and patent with Nephro infusing at 45ml/hr. YEFRI Midline intact, patent and flushing well. Safety precautions in place. Bed locked and set to lowest position with side rails x 2 up. All needs rendered at this time. Call light within reach. Will endorse plan of care to coming shift.
--- NOTE | 2020-06-20 19:37 | NUR ---
RN OPENING NOTES: Rec'd pt in bed, obtunded on T-piece at 10LPM O2. Tolerating well. No SOB or resp distress noted. YEFRI midline patent and flushed. Dressing c/d/i. GT site patent and flushed. Nepro infusing at 45ml/hr. Minimal residual noted. Safety measures in place. Will continue to monitor.
[2020-06-20 20:00] VITALS: BP 155/55
[2020-06-20] MEDS: ACETAMINOPHEN 325 MG TABLET PO PRN (20:01)
--- NOTE | 2020-06-20 20:10 | NUR ---
RN NOTE: Pt noted w/ temp of 101.1 Tylenol 650mg given as ordered. Cooling measures in place. Will continue to monitor.
[2020-06-20] MEDS: ATORVASTATIN 40 MG TABLET GT SCH (21:13)
[2020-06-20] MEDS: INSULIN GLARGINE, 100 UNIT/ML CARTRIDGE SQ SCH (21:23)
[2020-06-21] MEDS: BLOOD SUGAR DIAGNOSTIC 1 EACH STRIP IN SCH ×5 (00:41→23:47)
[2020-06-21 04:00] VITALS: BP 145/63
[2020-06-21] MEDS: INSULIN REGULAR, HUMAN 100 UNIT/ML 3 ML VIAL SQ PRN ×4 (05:37→23:51)
--- NOTE | 2020-06-21 06:37 | NUR ---
RN NOTE: No acute changes noted throughout shift. Pt remains on t-piece at 10LPM O2 tolerating well. No SOB or resp distress noted throughout shift. Nepro infusing at 45ml/hr tolerating well. YEFRI midline patent and flushed. Kept clean/dry. All meds given as ordered. Safety measures in place. Will endorse to oncoming nurse for LASHANDA.
--- NOTE | 2020-06-21 08:00 | NUR ---
RN OPENING NOTE Patient is resting in bed. obtunded/non-verbal, showing no signs of acute distress or SOB, Has t-piece portex #8 at 10l/min O2 sat 100%. Temp is 99.4 this AM, will give tylenol and cooling measures. G-tube is running Nephro @45mls/hour flushed and patent with 0ml residual. IV line in clean and intact flushing well. Bed is in lowest position, side rails x3 in upright position, fall safety aspiration and seizure precautions enforced. Will continue with plan of care.
[2020-06-21] MEDS: SEVELAMER CARBONATE 800 MG POWD.PACK GT SCH ×3 (08:23→17:10)
[2020-06-21] MEDS: ACIDOPHILUS/BULGARICUS 1 EACH TAB.CHEW GT SCH (08:23)
[2020-06-21] MEDS: LEVETIRACETAM SOL (5 ML) 100 MG/ML UDC GT SCH ×2 (08:23→20:28)
[2020-06-21] MEDS: ACETAMINOPHEN 325 MG TABLET PO PRN ×2 (08:24→16:33)
[2020-06-21] MEDS: THIAMINE HCL 100 MG TABLET GT SCH (08:24)
[2020-06-21] MEDS: FAMOTIDINE (20 MG) 20 MG TABLET GT SCH (08:24)
[2020-06-21] MEDS: ASCORBIC ACID 500 MG TABLET GT SCH ×3 (08:24→16:33)
[2020-06-21] MEDS: PROSOURCE / PROSTAT (PYXIS) 30 ML UDC GT SCH ×3 (08:26→16:34)
[2020-06-21] MEDS: MEROPENEM 500 MG in IV NS 0.9% 50 ML IV SCH ×2 (08:26→20:29)
--- NOTE | 2020-06-21 08:53 | NUR ---
RN NOTE Patient started HD at this time.
--- NOTE | 2020-06-21 11:00 | NUR ---
RN NOTE GTF OFF AT THIS TIME.
[2020-06-21] MEDS: DOCUSATE SODIUM LIQ 100 MG/10 ML UDC GT SCH (11:05)
[2020-06-21 12:00] VITALS: BP 145/60
--- NOTE | 2020-06-21 16:28 | NUR ---
RN NOTE CANCEL DC PER MD CARRANZA UNTIL PATIENT IS AFEBRILE.
[2020-06-21] MEDS: NEPRO 1,000 ML BOTTLE GT PRN (17:00)
--- NOTE | 2020-06-21 17:00 | NUR ---
RN NOTE GTF CHANGED AND CONTINUED AT THIS TIME.
--- NOTE | 2020-06-21 19:10 | NUR ---
RN OPENING NOTE RECEIVED A PATIENT IN BED RESTING OBTUNDED NON VERBAL CLOSE EYES,LETHARGIC ON T PIECE OXYGEN 10L/MIN TRACH PORTEX 8 O2:99% ON MED SURG MONITORING IV SITE IS ON RIGHT UPPER ARM MID LINE INTACT PATENT FLUSHED,PERM-CATH ON RIGHT UPPER CHEST FOR DIALYSIS,ON G-TUBE FEEDING NO RESIDUAL NOTED PLACEMENT CHECK DONE,IN PLACE ON NEPRO 1.8 45CC/HR,INCONTINENT TO BOWEL AND BLADDER,HEAD OF BED ELEVATED,BED LOCKED AND IN LOW POSITON,IMPLEMENT SAFETY MEASURE,CONTINUE TO MONITOR I
--- NOTE | 2020-06-21 19:26 | NUR ---
RN CLOSING NOTE Patient is resting in bed. obtunded/non-verbal, showing no signs of acute distress or SOB, Has t-piece portex #8 at 10l/min O2 sat 100%. Monitored temp and treated with cooling measures and tylenol. Last temp taken at 1900 98.6F. G-tube is running Nephro @45mls/hour flushed and patent with 0ml residual. IV line in clean and intact flushing well. All patient needs met, all due medications given, patient kept clean and dry throughout shift, skin protection measures implemented. Bed is in lowest position, side rails x3 in upright position, fall safety aspiration and seizure precautions enforced. Will endorse to shift manager. Addendum: 06/21/20 at 1929 by MATT HATFIELD RN S/P HD TODAY 0ML OUT, CLEANING ONLY.
[2020-06-21 20:00] VITALS: BP 131/52
[2020-06-21] MEDS: ATORVASTATIN 40 MG TABLET GT SCH (21:36)
[2020-06-21] MEDS: INSULIN GLARGINE, 100 UNIT/ML CARTRIDGE SQ SCH (21:43)
[2020-06-22] VITALS (11 sets, daily range): BP systolic 106–155; BP diastolic 45–70
--- NOTE | 2020-06-22 05:15 | NUR ---
0578 PRELIMINARY BLOOD CULTURE RESULT GRAM POSITIVE COCCI IN PAIRS RELAYED TO DR. OCASIO VIA PHONE. AWAITING CALL BACK.
--- NOTE | 2020-06-22 05:20 | NUR ---
3262 DR OCASIO RESPONDED WITH ORDER TO GIVE VANCOMYCIN 1GRAM NOW THEN PHARMACY TO DOSE. ORDER NOTED AND CARRIED OUT.
[2020-06-22] MEDS: BLOOD SUGAR DIAGNOSTIC 1 EACH STRIP IN SCH ×3 (05:41→17:54)
[2020-06-22] MEDS: INSULIN REGULAR, HUMAN 100 UNIT/ML 3 ML VIAL SQ PRN ×3 (05:44→23:22)
[2020-06-22] MEDS ORDERED: VANCOMYCIN 1 GM in IV D5W 250ml IV ONE (06:00)
[2020-06-22] MEDS ORDERED: VANCOMYCIN 1 GM VIAL ONE (06:09)
[2020-06-22 06:16] LABS: BASOPHILS % (AUTO) 0.2 % (0.0-2.0); EOSINOPHILS % (AUTO) 0.8 % (0.0-6.0); HEMATOCRIT 21 % (33-45); LYMPHOCYTES # (AUTO) 0.5 /CMM (0.8-4.8); LYMPHOCYTES % (AUTO) 3.4 % (20.0-44.0); MEAN CORPUSCULAR HGB CONC 32 g/dl (31.0-36.0); MEAN CORPUSCULAR VOLUME 98 fL (82-100); MONOCYTES # (AUTO) 0.8 /CMM (0.1-1.30); NEUTROPHILS % (AUTO) 90.6 % (43.0-81.0); PLATELET COUNT (AUTO) 411 /CMM (150-450); RED BLOOD CELL COUNT(AUTO) 2.17 MIL/uL (4.0-5.2); WHITE BLOOD COUNT (AUTO) 15.5 K/uL (4.3-11.0)
--- NOTE | 2020-06-22 06:40 | NUR ---
RN NOTE RECEIVED A CALL FROM LAB WITH CRITICAL LAB RESULT HEMOGLOBIN 6.8 CALLED EPIK MOLASSES AND CARAMEL OPERATOR DR CARRANZA WAITING FOR CALL BACK ENDORSE NEXT COMING SHIFT.
--- NOTE | 2020-06-22 06:45 | NUR ---
RN CLOSING NOTE PATIENT REMAINS OBTUNDED NON VERBAL ON T PIECE OXYGEN 10L/MIN,O2:98% IV IS ON RIGHT UPPER ARM MID LINE PATENT INTACT FLUSHED,ON G-TUBE FEEDING NEPRO 1.8 45 CC/HR TOLERATED,HEAD OF THE BED ELEVATED ALL THE TIME,IMPLEMENTED SAFETY MEASURE NO RESIDUAL NOTED,ALL DUE MEDS GIVEN MD ORDERED,KEPT CLEAN AND DRY ALL THE TIME,ENDORSE NEXT COMING SHIFT FOR CONTINUATION OF CARE.
[2020-06-22 06:52] LABS: CALCIUM, SERUM 8.7 mg/dL (8.5-10.1); CREATININE 3.9 mg/dL (0.6-1.3); MAGNESIUM 3.1 mg/dL (1.8-2.4); PHOSPHORUS 5.2 mg/dL (2.5-4.9); POTASSIUM 4.2 mmol/L (3.5-5.1)
[2020-06-22 06:55] LABS: HEMOGLOBIN 6.8 g/dL (11.5-14.8)
[2020-06-22] MEDS ORDERED: VANCOMYCIN 500 MG in IV D5W 100 ML IV PRN (07:30)
--- NOTE | 2020-06-22 07:30 | NUR ---
END FRAZER OPENING NOTES RECEIVED A PATIENT IN BED RESTING OBTUNDED NON VERBAL CLOSE EYES,LETHARGIC ON T PIECE OXYGEN 10L/MIN TRACH PORTEX 8 O2 @ 100%. IV SITE IS ON RIGHT UPPER ARM MID LINE INTACT PATENT FLUSHED,PERM-CATH ON RIGHT UPPER CHEST FOR DIALYSIS, ON G-TUBE FEEDING NO RESIDUAL NOTED PLACEMENT CHECK DONE,IN PLACE ON NEPRO 1.8 45CC/HR, INCONTINENT TO BOWEL AND BLADDER,HEAD OF BED ELEVATED,BED LOCKED AND IN LOW POSITON, IMPLEMENT SAFETY MEASURE. WILL CONTINUE TO MONITOR.
[2020-06-22] MEDS: ACIDOPHILUS/BULGARICUS 1 EACH TAB.CHEW GT SCH (08:34)
[2020-06-22] MEDS: LEVETIRACETAM SOL (5 ML) 100 MG/ML UDC GT SCH ×2 (08:34→20:30)
[2020-06-22] MEDS: ASCORBIC ACID 500 MG TABLET GT SCH ×3 (08:34→16:46)
[2020-06-22] MEDS: FAMOTIDINE (20 MG) 20 MG TABLET GT SCH (08:34)
[2020-06-22] MEDS: DOCUSATE SODIUM LIQ 100 MG/10 ML UDC GT SCH (08:34)
[2020-06-22] MEDS: THIAMINE HCL 100 MG TABLET GT SCH (08:34)
[2020-06-22] MEDS: PROSOURCE / PROSTAT (PYXIS) 30 ML UDC GT SCH ×3 (08:54→16:46)
[2020-06-22] MEDS: MEROPENEM 500 MG in IV NS 0.9% 50 ML IV SCH ×2 (08:57→20:30)
[2020-06-22] MEDS: SEVELAMER CARBONATE 800 MG POWD.PACK GT SCH ×3 (08:57→18:26)
--- NOTE | 2020-06-22 12:00 | NUR ---
PHONE/VERBAL CONSENT FOR BEDSIDE RIGHT FOOT WOUND DEBRIDMENT OBTAINED FROM DAUGHTER TOMMY LEVY.
[2020-06-22 12:53] LABS: BAND % (MANUAL) 1 % (0.0-5.0); EOSINOPHILS % (MANUAL) 2 % (0-4); LYMPHOCYTES % (MANUAL) 2 % (16-48); MONOCYTES % (MANUAL) 3 % (0-11.0); NEUTROPHILS % (MANUAL) 92 (42-76)
--- NOTE | 2020-06-22 17:43 | NUR ---
CARBON BLOCKS PRESS OPERATOR NOTES 1 UNIT PACKED RBC INITIATED FOR TRANSFUSION PER MD ORDERS.
--- NOTE | 2020-06-22 18:41 | NUR ---
BREAKER OILER CLOSING NOTES PATIENT REMAINS OBTUNDED NON VERBAL ON T PIECE OXYGEN 10L/MIN, O2:98% IV IS ON RIGHT UPPER ARM MID LINE PATENT INTACT FLUSHED,ON G-TUBE FEEDING NEPRO 1.8 45 CC/HR TOLERATED, HEAD OF THE BED ELEVATED ALL THE TIME,IMPLEMENTED SAFETY MEASURE NO RESIDUAL NOTED,ALL DUE MEDS GIVEN MD ORDERED,KEPT CLEAN AND DRY ALL THE TIME, WILL ENDORSE TO NEXT SHIFT FOR LASHANDA. Addendum: 06/22/20 at 1855 by PHYLLIS POTTER RN 1 UNIT PACKED RBC STILL BEING TRANSFUSED WITH NO REACTION NOTED. WILL ENDORSE TO NEXT SHIFT FOR LASHANDA.
--- NOTE | 2020-06-22 19:30 | NUR ---
RN NOTE RECEIVED PATIENT IN BED, OBTUNDED. PATIENT IN NO S/SX OF ACUTE DISTRESS AT THIS TIME. PATIENT'S BREATHING IS EVEN AND UNLABORED. PATIENT IS ON T-PIECE PORTEX#8 AT 10 L/MIN, TOLERATING WELL, SATURATING AT 98%. GTUBE INTACT, PLACEMENT WAS CHECKED, NO RESIDUAL NOTED, TUBE FEEDING OF NEPRO AT 45 ML/HR ONGOING. NOTED YEFRI MIDLINE AND R SUBCLAVIAN 2L CATH, BOTH PATENT AND FLUSHING WELL. NO SIGN OF INFECTION NOTED. WITH ONGOING TRANSFUSION OF LRBC A POS, ABOUT 150 ML REMAINING, NO SIGN OF TRANSFUSION REACTION NOTED, VITALS MONITORED AND ARE WITHIN WNL. NOTED B FOOT WOUNDS WITH ODOR, AND SACRAL DTI, DRESSING ARE DRY AND INTACT. SAFETY MEASURES IMPLEMENTED PER PROTOCOL. PATIENT BED ALARM IS ON. HEAD OF BED ELEVATED. BED IS LOCKED, IN LOWEST POSITION AND SIDE RAILS UP. ASPIRATION PRECAUTIONS MAINTAINED. WILL CONTINUE TO MONITOR AND REASSESS FOR ANY CHANGES.
[2020-06-22] MEDS: ATORVASTATIN 40 MG TABLET GT SCH (21:20)
[2020-06-22 23:09] LABS: BASOPHILS # (AUTO) 0.1 /CMM (0.0-0.2); BASOPHILS % (AUTO) 0.7 % (0.0-2.0); EOSINOPHILS % (AUTO) 1.6 % (0.0-6.0); HEMATOCRIT 27 % (33-45); HEMOGLOBIN 8.7 g/dL (11.5-14.8); LYMPHOCYTES # (AUTO) 0.9 /CMM (0.8-4.8); LYMPHOCYTES % (AUTO) 6.2 % (20.0-44.0); MEAN CORPUSCULAR HGB CONC 33 g/dl (31.0-36.0); MEAN CORPUSCULAR VOLUME 94 fL (82-100); MONOCYTES # (AUTO) 0.9 /CMM (0.1-1.30); MONOCYTES % (AUTO) 6.3 % (2.0-12.0); NEUTROPHILS # (AUTO) 12.2 /CMM (1.8-8.9); NEUTROPHILS % (AUTO) 85.2 % (43.0-81.0); PLATELET COUNT (AUTO) 378 /CMM (150-450); RED BLOOD CELL COUNT(AUTO) 2.83 MIL/uL (4.0-5.2); WHITE BLOOD COUNT (AUTO) 14.3 K/uL (4.3-11.0)
[2020-06-22] MEDS: INSULIN GLARGINE, 100 UNIT/ML CARTRIDGE SQ SCH (23:20)
[2020-06-23] VITALS: BP 164/49
--- NOTE | 2020-06-23 | NUR ---
RN NOTE NOTED BP OF 164/49 PER MOTHER'S HELPER. REPOSITIONED AND PROVIDED COMFORT MEASURES. BP RECHECKED ON THE SAME ARM AFTER 15 MINS, RESULTED 153/80.
[2020-06-23] MEDS: NEPRO 1,000 ML BOTTLE GT PRN (03:26)
[2020-06-23 04:00] VITALS: BP 151/47
[2020-06-23 06:44] LABS: BASOPHILS # (AUTO) 0.1 /CMM (0.0-0.2); BASOPHILS % (AUTO) 0.3 % (0.0-2.0); EOSINOPHILS % (AUTO) 1.4 % (0.0-6.0); HEMATOCRIT 25 % (33-45); HEMOGLOBIN 8.2 g/dL (11.5-14.8); LYMPHOCYTES # (AUTO) 0.7 /CMM (0.8-4.8); LYMPHOCYTES % (AUTO) 4.3 % (20.0-44.0); MEAN CORPUSCULAR HGB CONC 33 g/dl (31.0-36.0); MEAN CORPUSCULAR VOLUME 93 fL (82-100); MONOCYTES % (AUTO) 6.1 % (2.0-12.0); NEUTROPHILS # (AUTO) 14.5 /CMM (1.8-8.9); NEUTROPHILS % (AUTO) 87.9 % (43.0-81.0); PLATELET COUNT (AUTO) 389 /CMM (150-450); RED BLOOD CELL COUNT(AUTO) 2.68 MIL/uL (4.0-5.2); WHITE BLOOD COUNT (AUTO) 16.5 K/uL (4.3-11.0)
[2020-06-23] MEDS: BLOOD SUGAR DIAGNOSTIC 1 EACH STRIP IN SCH ×5 (06:45→23:11)
[2020-06-23] MEDS: INSULIN REGULAR, HUMAN 100 UNIT/ML 3 ML VIAL SQ PRN ×3 (06:47→23:19)
--- NOTE | 2020-06-23 07:15 | NUR ---
RN OPENING NOTES RECEIVED PT IN BED, OBTUNDED. PT IS ON T-PIECE PORTEX#8 AT 10 L/MIN SATURATING AT 98%. NO SOB OR ANY ACUTE RESPIRATORY DISTRESS AT THIS TIME. GTUBE PLACEMENT WAS CHECKED BY AUSCULTATION, NO RESIDUAL NOTED. TUBE FEEDING OF NEPRO @ 45 ML/HR, TOLERATING FEEDING WELL. IV SITES AT YEFRI MIDLINE INTACT, PATENT AND FLUSHED. AND R SUBCLAVIAN 2L CATH, FOR HD. NOTED B FOOT WOUNDS WITH ODOR, AND SACRAL DTI, DRESSING ARE DRY AND INTACT. SAFETY MEASURES OBSERVED. CALL LIGHT WITHINN REACH. HOB ELEVATED. BED IS LOCKED AND AT LOWEST POSITION WITH SIDE RAILS UP. ASPIRATION PRECAUTIONS MAINTAINED. WILL CONTINUE TO MONITOR.
[2020-06-23 07:30] LABS: CALCIUM, SERUM 8.9 mg/dL (8.5-10.1); CREATININE 4.7 mg/dL (0.6-1.3); MAGNESIUM 3.3 mg/dL (1.8-2.4); PHOSPHORUS 5.9 mg/dL (2.5-4.9); POTASSIUM 4.3 mmol/L (3.5-5.1)
--- NOTE | 2020-06-23 07:33 | NUR ---
RN CLOSING NOTE PATIENT REMAINS IN ROOM. NO SIGNS OF RESPIRATORY DISTRESS. PATIENT ON PATIENT IS ON T-PIECE PORTEX#8 AT 10 L/MIN STILL WITH FIO2 40%, TUBE FEEDING OF NEPRO AT 45 ML/HR ONGOING. SAFETY MEASURES IMPLEMENTED, BED IN LOWEST POSITION, LOCKED, SIDE RAILS UP, CALL LIGHT WITHIN REACH. ALL NEEDS AND ORDERS ADDRESSED DURING THE SHIFT. ALL DUE MEDS ADMINISTERED ORDERED & SCHEDULED, PATIENT TOLERATED WELL. PATIENT KEPT CLEAN AND COMFORTABLE WITHIN THE SHIFT. ENDORSED TO MARSHA BARR FOR CONTINUITY OF CARE.
[2020-06-23] MEDS: FAMOTIDINE (20 MG) 20 MG TABLET GT SCH (08:50)
[2020-06-23] MEDS: ACIDOPHILUS/BULGARICUS 1 EACH TAB.CHEW GT SCH (08:50)
[2020-06-23] MEDS: SEVELAMER CARBONATE 800 MG POWD.PACK GT SCH ×3 (08:50→18:16)
[2020-06-23] MEDS: MEROPENEM 500 MG in IV NS 0.9% 50 ML IV SCH ×2 (08:50→21:56)
[2020-06-23] MEDS: THIAMINE HCL 100 MG TABLET GT SCH (08:50)
[2020-06-23] MEDS: LEVETIRACETAM SOL (5 ML) 100 MG/ML UDC GT SCH ×2 (08:50→21:56)
[2020-06-23] MEDS: ASCORBIC ACID 500 MG TABLET GT SCH ×3 (08:51→17:00)
[2020-06-23] MEDS: PROSOURCE / PROSTAT (PYXIS) 30 ML UDC GT SCH ×3 (08:51→17:00)
[2020-06-23] MEDS: DOCUSATE SODIUM LIQ 100 MG/10 ML UDC GT SCH (08:51)
[2020-06-23 12:00] VITALS: BP 118/75
--- NOTE | 2020-06-23 18:00 | NUR ---
RN NOTES 3HRS HD DONE. 500ML OUTPUT. VS ARE WITHIN NORMAL LIMITS. WILL CONTINUE TO MONITOR
--- NOTE | 2020-06-23 19:30 | NUR ---
RN OPENING NOTE RECEIVED PATIENT IN BED, OBTUNDED. PATIENT IN NO S/SX OF ACUTE DISTRESS AT THIS TIME. PATIENT'S BREATHING IS EVEN AND UNLABORED. PATIENT IS ON T-PIECE PORTEX#8 AT 10 L/MIN, TOLERATING WELL, SATURATING AT 100%. GTUBE INTACT, PLACEMENT WAS CHECKED, NO RESIDUAL NOTED, TUBE FEEDING OF NEPRO AT 45 ML/HR ONGOING. NOTED YEFRI MIDLINE AND R SUBCLAVIAN 2L CATH, BOTH PATENT AND FLUSHING WELL. NO SIGN OF INFECTION NOTED. NOTED B FOOT WOUNDS WITH ODOR, AND SACRAL DTI, DRESSING ARE DRY AND INTACT. NOTED THICK YELLOW TO GREENISH RESPIRATORY SECRETIONS. SUCTIONING WAS DONE NEEDED. SAFETY MEASURES IMPLEMENTED PER PROTOCOL. PATIENT BED ALARM IS ON. HEAD OF BED ELEVATED. BED IS LOCKED, IN LOWEST POSITION AND SIDE RAILS UP. ASPIRATION PRECAUTIONS MAINTAINED. WILL CONTINUE TO MONITOR AND REASSESS FOR ANY CHANGES.
--- NOTE | 2020-06-23 19:46 | NUR ---
RN CLOSING NOTES PT RESTING IN BED, OBTUNDED. PT IS ON T-PIECE PORTEX#8 AT 10 L/MIN SATURATING AT 98%. NO SOB OR ANY ACUTE RESPIRATORY DISTRESS AT THIS TIME. GTUBE PLACEMENT WAS CHECKED BY AUSCULTATION, NO RESIDUAL NOTED. TUBE FEEDING OF NEPRO @ 45 ML/HR, TOLERATING FEEDING WELL. IV SITES AT YEFRI MIDLINE INTACT, PATENT AND FLUSHED. AND R SUBCLAVIAN 2L CATH, FOR HD. NOTED B FOOT WOUNDS WITH ODOR, AND SACRAL DTI, DRESSING ARE DRY AND INTACT. SAFETY MEASURES OBSERVED. CALL LIGHT WITHINN REACH. HOB ELEVATED. BED IS LOCKED AND AT LOWEST POSITION WITH SIDE RAILS UP. ASPIRATION PRECAUTIONS MAINTAINED. WILL ENDORSE TO MACHINE MAINTENANCE MECHANIC FOR LASHANDA.
[2020-06-23 20:00] VITALS: BP 136/55
[2020-06-23] MEDS: ATORVASTATIN 40 MG TABLET GT SCH (21:56)
[2020-06-23] MEDS: ACETAMINOPHEN 325 MG TABLET PO PRN (22:13)
[2020-06-23] MEDS: INSULIN GLARGINE, 100 UNIT/ML CARTRIDGE SQ SCH (23:18)
[2020-06-24 04:00] VITALS: BP 103/52
[2020-06-24 05:55] LABS: BASOPHILS % (AUTO) 0.3 % (0.0-2.0); HEMATOCRIT 27 % (33-45); HEMOGLOBIN 8.6 g/dL (11.5-14.8); LYMPHOCYTES # (AUTO) 0.9 /CMM (0.8-4.8); LYMPHOCYTES % (AUTO) 5.8 % (20.0-44.0); MEAN CORPUSCULAR HGB CONC 32 g/dl (31.0-36.0); MEAN CORPUSCULAR VOLUME 94 fL (82-100); MONOCYTES # (AUTO) 0.9 /CMM (0.1-1.30); MONOCYTES % (AUTO) 5.6 % (2.0-12.0); NEUTROPHILS # (AUTO) 13.4 /CMM (1.8-8.9); NEUTROPHILS % (AUTO) 87.3 % (43.0-81.0); PLATELET COUNT (AUTO) 377 /CMM (150-450); RED BLOOD CELL COUNT(AUTO) 2.82 MIL/uL (4.0-5.2); WHITE BLOOD COUNT (AUTO) 15.3 K/uL (4.3-11.0)
[2020-06-24] MEDS: NEPRO 1,000 ML BOTTLE GT PRN (06:23)
[2020-06-24] MEDS: BLOOD SUGAR DIAGNOSTIC 1 EACH STRIP IN SCH ×4 (06:24→23:53)
[2020-06-24] MEDS: INSULIN REGULAR, HUMAN 100 UNIT/ML 3 ML VIAL SQ PRN ×3 (06:25→23:57)
[2020-06-24 06:39] LABS: CALCIUM, SERUM 8.6 mg/dL (8.5-10.1); CREATININE 2.9 mg/dL (0.6-1.3); MAGNESIUM 2.8 mg/dL (1.8-2.4); PHOSPHORUS 4.1 mg/dL (2.5-4.9); POTASSIUM 4.4 mmol/L (3.5-5.1)
--- NOTE | 2020-06-24 07:25 | NUR ---
RN OPENING NOTES RECEIVED PT IN BED, OBTUNDED. PT IS ON T-PIECE PORTEX#8 AT 10 L/MIN SATURATING AT 100%. NO SOB OR ANY ACUTE RESPIRATORY DISTRESS AT THIS TIME. GTUBE PLACEMENT WAS CHECKED BY AUSCULTATION, NO RESIDUAL NOTED. TUBE FEEDING OF NEPRO @ 45 ML/HR, TOLERATING FEEDING WELL. IV SITES AT YEFRI MIDLINE INTACT, PATENT AND FLUSHED. AND R SUBCLAVIAN 2L CATH, FOR HD. NOTED B FEET WOUNDS WITH ODOR, AND SACRAL DTI, DRESSING ARE DRY AND INTACT. SAFETY MEASURES OBSERVED. CALL LIGHT WITHIN REACH. HOB ELEVATED. BED IS LOCKED AND AT LOWEST POSITION WITH SIDE RAILS UP. ASPIRATION PRECAUTIONS MAINTAINED. WILL CONTINUE TO MONITOR.
--- NOTE | 2020-06-24 07:31 | NUR ---
RN CLOSING NOTE PATIENT REMAINS IN ROOM. NO SIGNS OF RESPIRATORY DISTRESS. PATIENT ON PATIENT IS ON T-PIECE PORTEX#8 AT 10 L/MIN STILL WITH FIO2 40%, TUBE FEEDING OF NEPRO AT 45 ML/HR ONGOING. ASPIRATION PRECAUTIONS MAINTAINED. SAFETY MEASURES IMPLEMENTED, BED IN LOWEST POSITION, LOCKED, SIDE RAILS UP, CALL LIGHT WITHIN REACH. ALL NEEDS AND ORDERS ADDRESSED DURING THE SHIFT. ALL DUE MEDS ADMINISTERED ORDERED & SCHEDULED, PATIENT TOLERATED WELL. PATIENT KEPT CLEAN AND COMFORTABLE WITHIN THE SHIFT. ENDORSED TO MICHAEL BARR FOR CONTINUITY OF CARE.
[2020-06-24 08:00] VITALS: BP 174/54
--- NOTE | 2020-06-24 08:29 | NUR ---
WOUND CARE FOLLOW UP: PT SEEN FOR SACRAL DEEP TISSUE INJURY IN EVOLUTION OVER PREVIOUS SCARRING. SCARRING WAS NOTED TO BE PRESENT ON ADMISSION. WOUND BED CHANGED NOTED TO INCLUDE BROWN AREA OF NECROTIC TISSUE IN CENTER OF WOUND. RECOMMEND SURGICAL CONSULT. DR CRISTOBAL NOTIFIED OF CONSULT REQUEST. RECOMMENDATIONS MADE FOR WOUND CARE AND SKIN PROTECTION. DISCUSSED WITH NURSING STAFF. PT IS ON LEANDRA ISOFLEX LOW AIRLOSS BED. IN AGREEMENT WITH PLAN OF CARE. Addendum: 06/24/20 at 0830 by NORA MONTEZ WNDNU Amended: Links added.
[2020-06-24] MEDS: MEROPENEM 500 MG in IV NS 0.9% 50 ML IV SCH (08:34)
[2020-06-24] MEDS: SEVELAMER CARBONATE 800 MG POWD.PACK GT SCH ×3 (08:34→18:06)
[2020-06-24] MEDS: FAMOTIDINE (20 MG) 20 MG TABLET GT SCH (08:35)
[2020-06-24] MEDS: DOCUSATE SODIUM LIQ 100 MG/10 ML UDC GT SCH (08:35)
[2020-06-24] MEDS: LEVETIRACETAM SOL (5 ML) 100 MG/ML UDC GT SCH ×2 (08:35→21:05)
[2020-06-24] MEDS: THIAMINE HCL 100 MG TABLET GT SCH (08:35)
[2020-06-24] MEDS: ACIDOPHILUS/BULGARICUS 1 EACH TAB.CHEW GT SCH (08:35)
[2020-06-24] MEDS: ASCORBIC ACID 500 MG TABLET GT SCH ×3 (08:35→17:00)
[2020-06-24] MEDS: PROSOURCE / PROSTAT (PYXIS) 30 ML UDC GT SCH ×3 (08:36→17:00)
[2020-06-24 12:00] VITALS: BP 161/59
--- NOTE | 2020-06-24 19:00 | NUR ---
RN OPENING NOTES: Rec'd pt in bed, obtunded and nonverbal. On t-piece w/ 40% fio2 tolerating well. No SOB or resp distress noted. Breathing even and unlabored. GT site patent and flushed w/ minimal residual noted. Nepro infusing at 45ml/hr tolerating feeding well. YEFRI midline patent and flushed. Dressing c/d/i. Right subclavian permacath noted. Safety measures in place. Will continue to monitor.
--- NOTE | 2020-06-24 19:14 | NUR ---
RN CLOSING NOTE PT RESTING IN BED. NO SIGNS OF RESPIRATORY DISTRESS. PT ON T-PIECE PORTEX#8 @ 10 L/MIN SATURATING @ 100%. GTUBE FEEDING OF NEPRO @45 ML/HR TOLERATING WELL. SAFETY MEASURES OBSERVED. CALL LIGHT WITHIN REACH. BED LOCKED AND AT LOWEST POSITION WITH SIDE RAILS UP. ALL NEEDS ATTENDED. ALL DUE MEDS ADMINISTERED ORDERED. WILL ENDORSE TO NIGHT NURSE FOR LASHANDA.
[2020-06-24 20:00] VITALS: BP 164/58
[2020-06-24] MEDS: ACETAMINOPHEN 325 MG TABLET PO PRN (20:39)
--- NOTE | 2020-06-24 20:39 | NUR ---
RN NOTE: Pt noted w/ temp of 100.6. Tylenol 650mg PRN given as ordered. Cooling measures in place. Will continue to monitor.
[2020-06-24] MEDS: ATORVASTATIN 40 MG TABLET GT SCH (21:05)
[2020-06-24] MEDS: INSULIN GLARGINE, 100 UNIT/ML CARTRIDGE SQ SCH (21:07)
[2020-06-25] MEDS: HYDROCODONE/APAP 5/325MG TABLET PO PRN ×3 (03:46→20:12)
--- NOTE | 2020-06-25 03:47 | NUR ---
RN NOTE: [place] 5/325 PRN given prior to wound dressing change. Will continue to monitor.
[2020-06-25 04:00] VITALS: BP 171/63
[2020-06-25] MEDS: NEPRO 1,000 ML BOTTLE GT PRN (05:38)
[2020-06-25] MEDS: BLOOD SUGAR DIAGNOSTIC 1 EACH STRIP IN SCH ×4 (05:44→23:25)
[2020-06-25] MEDS: INSULIN REGULAR, HUMAN 100 UNIT/ML 3 ML VIAL SQ PRN ×3 (05:53→23:24)
[2020-06-25 06:49] LABS: BASOPHILS # (AUTO) 0.1 /CMM (0.0-0.2); BASOPHILS % (AUTO) 0.6 % (0.0-2.0); EOSINOPHILS % (AUTO) 1.3 % (0.0-6.0); HEMATOCRIT 26 % (33-45); LYMPHOCYTES % (AUTO) 4.3 % (20.0-44.0); MEAN CORPUSCULAR HGB CONC 31 g/dl (31.0-36.0); MEAN CORPUSCULAR VOLUME 99 fL (82-100); MONOCYTES # (AUTO) 1.3 /CMM (0.1-1.30); MONOCYTES % (AUTO) 5.6 % (2.0-12.0); NEUTROPHILS # (AUTO) 19.7 /CMM (1.8-8.9); NEUTROPHILS % (AUTO) 88.2 % (43.0-81.0); PLATELET COUNT (AUTO) 373 /CMM (150-450); RED BLOOD CELL COUNT(AUTO) 2.59 MIL/uL (4.0-5.2); WHITE BLOOD COUNT (AUTO) 22.4 K/uL (4.3-11.0)
--- NOTE | 2020-06-25 07:00 | NUR ---
RN CLOSING NOTES: No acute distress noted throughout shift. Pt remains on t piece 10LPM at 40% FiO2 tolerating well. No SOB or resp distress noted throughout shift. YEFRI midline patent and flushed. Dressing c/d/i. Nepro infusing at 45,l/hr, tolerating well. Kept clean/dry. All due meds given as ordered. Safety measures in place. Will endorse to oncoming nurse for LASHANDA.
--- NOTE | 2020-06-25 07:15 | NUR ---
RN OPENING NOTES RECEIVED PT IN BED, OBTUNDED. PT IS ON T-PIECE PORTEX#8 @ 10 L/MIN SATURATING @ 100%. NO SOB OR ANY ACUTE RESPIRATORY DISTRESS AT THIS TIME. GTUBE PLACEMENT WAS CHECKED BY AUSCULTATION, NO RESIDUAL NOTED. TUBE FEEDING OF NEPRO @ 45 ML/HR, TOLERATING FEEDING WELL. IV SITES AT YEFRI MIDLINE INTACT, PATENT AND FLUSHED. AND R SUBCLAVIAN 2L CATH, FOR HD. NOTED B FEET WOUNDS WITH ODOR AND SACRAL DTI, DRESSINGS ARE DRY AND INTACT. SAFETY MEASURES OBSERVED. CALL LIGHT WITHIN REACH. HOB ELEVATED. BED IS LOCKED AND AT LOWEST POSITION WITH SIDE RAILS UP. ASPIRATION PRECAUTIONS MAINTAINED. WILL CONTINUE TO MONITOR.
[2020-06-25 07:19] LABS: CALCIUM, SERUM 9.1 mg/dL (8.5-10.1); CREATININE 3.8 mg/dL (0.6-1.3); MAGNESIUM 3.4 mg/dL (1.8-2.4); PHOSPHORUS 5.1 mg/dL (2.5-4.9); POTASSIUM 4.7 mmol/L (3.5-5.1)
[2020-06-25 08:00] VITALS: BP 129/66
[2020-06-25] MEDS: SEVELAMER CARBONATE 800 MG POWD.PACK GT SCH ×3 (08:31→18:16)
[2020-06-25] MEDS: FAMOTIDINE (20 MG) 20 MG TABLET GT SCH (08:31)
[2020-06-25] MEDS: DOCUSATE SODIUM LIQ 100 MG/10 ML UDC GT SCH (08:31)
[2020-06-25] MEDS: ACIDOPHILUS/BULGARICUS 1 EACH TAB.CHEW GT SCH (08:31)
[2020-06-25] MEDS: ASCORBIC ACID 500 MG TABLET GT SCH ×3 (08:31→17:00)
[2020-06-25] MEDS: LEVETIRACETAM SOL (5 ML) 100 MG/ML UDC GT SCH ×2 (08:32→21:39)
[2020-06-25] MEDS: THIAMINE HCL 100 MG TABLET GT SCH (08:32)
[2020-06-25] MEDS: PROSOURCE / PROSTAT (PYXIS) 30 ML UDC GT SCH ×3 (08:34→17:00)
[2020-06-25] MEDS ORDERED: MEROPENEM 500 MG in IV NS 0.9% 50 ML IV SCH (09:00)
[2020-06-25] MEDS: ONDANSETRON HCL/PF 4 MG/2 ML VIAL IVP PRN (11:05)
[2020-06-25 12:00] VITALS: BP 158/54
[2020-06-25] MEDS ORDERED: DOSING PER PHARMACY-TOBRA INHALATION 1 EA XX PRN (18:00)
--- NOTE | 2020-06-25 19:08 | NUR ---
RN CLOSING NOTE PT RESTING IN BED. NO SIGNS OF RESPIRATORY DISTRESS. PT ON T-PIECE PORTEX#8 @ 10 L/MIN SATURATING @ 100%. GTUBE FEEDING OF NEPRO @45 ML/HR TOLERATING WELL. SAFETY MEASURES OBSERVED. CALL LIGHT WITHIN REACH. BED LOCKED AND AT LOWEST POSITION WITH SIDE RAILS UP. ALL NEEDS ATTENDED. ALL DUE MEDS ADMINISTERED ORDERED. ONGOING DIALYSIS. WILL ENDORSE TO NIGHT NURSE FOR LASHANDA.
--- NOTE | 2020-06-25 19:13 | NUR ---
RN OPENING NOTES: Rec'd pt in bed, obtunded on t-piece at 10LPM tolerating well. No SOB or resp distress noted. YEFRI midline patent and flushed. Dressing c/d/i. R subclavian permacath noted. Pt receiving dialysis at this time. GTF Nepro infusing at 45ml/hr tolerating well. Safety measures in place. Will continue to monitor.
--- NOTE | 2020-06-25 19:50 | NUR ---
RN NOTE: S/P dialysis w/ 500ml out. Will administer Vanco prn hd as ordered. Will continue to monitor.
[2020-06-25 20:00] VITALS: BP 173/59
[2020-06-25] MEDS ORDERED: TOBRAMYCIN 80 MG in IV NS 0.9% 50 ML IV ONE (20:00)
[2020-06-25] MEDS ORDERED: TOBRAMYCIN 80 MG/2 ML VIAL ONE (20:56)
[2020-06-25] MEDS: MEROPENEM 500 MG in IV NS 0.9% 50 ML IV SCH (21:39)
[2020-06-25] MEDS: ATORVASTATIN 40 MG TABLET GT SCH (21:39)
[2020-06-25] MEDS: INSULIN GLARGINE, 100 UNIT/ML CARTRIDGE SQ SCH (21:52)
[2020-06-26] VITALS (10 sets, daily range): BP systolic 122–166; BP diastolic 53–83
[2020-06-26] MEDS: BLOOD SUGAR DIAGNOSTIC 1 EACH STRIP IN SCH ×4 (05:20→23:43)
[2020-06-26] MEDS: NEPRO 1,000 ML BOTTLE GT PRN (05:39)
--- NOTE | 2020-06-26 05:52 | NUR ---
PATIENT RECEIVED ON 40% AEROSOL T-TUBE, TOLERATING WITH NO DISTRESS/SOB NOTED. SUCTIONED FOR MINIMAL, THIN, YELLOW SECRETIONS. AMBU BAG AT BEDSIDE. TRACH CARE DONE. Addendum: 06/26/20 at 0554 by PRABHAKAR PHIPPS RT Amended: Links added.
--- NOTE | 2020-06-26 06:52 | NUR ---
RN CLOSING NOTES: No acute changes noted throughout shift. Pt remains on 10LPM via t-piece. No SOB or resp distress noted throughout shift. YEFRI midline intact. Dressing c/d/i. Nepro infusing at 45ml/hr, tolerating well. Kept clean/dry. All due meds given as ordered. Safety measures in place. Will endorse to oncoming nurse for LASHANDA.
[2020-06-26 06:55] LABS: BASOPHILS # (AUTO) 0.1 /CMM (0.0-0.2); BASOPHILS % (AUTO) 0.5 % (0.0-2.0); EOSINOPHILS % (AUTO) 1.2 % (0.0-6.0); LYMPHOCYTES # (AUTO) 0.6 /CMM (0.8-4.8); LYMPHOCYTES % (AUTO) 3.3 % (20.0-44.0); MEAN CORPUSCULAR HGB CONC 32 g/dl (31.0-36.0); MEAN CORPUSCULAR VOLUME 96 fL (82-100); MONOCYTES # (AUTO) 0.8 /CMM (0.1-1.30); NEUTROPHILS # (AUTO) 15.2 /CMM (1.8-8.9); PLATELET COUNT (AUTO) 333 /CMM (150-450); RED BLOOD CELL COUNT(AUTO) 2.08 MIL/uL (4.0-5.2); WHITE BLOOD COUNT (AUTO) 16.9 K/uL (4.3-11.0)
[2020-06-26 07:13] LABS: CALCIUM, SERUM 8.7 mg/dL (8.5-10.1); MAGNESIUM 2.7 mg/dL (1.8-2.4); PHOSPHORUS 4.2 mg/dL (2.5-4.9); POTASSIUM 4.4 mmol/L (3.5-5.1)
--- NOTE | 2020-06-26 07:30 | NUR ---
RN OPENING NOTES: Received patient in bed, nasal canula 10L, no signs of rep distress, YEFRI midline flushes easily and patent, clean dry and intact dressings, R subclavian permacath present, pt received dialysis 06/25, GTF Nepro infusing at 45ml/hr. safety measures implemented, bed in lowest locked position, call light within reach, hob elevated, bed alarm on, will continue to monitor.
[2020-06-26] MEDS: SEVELAMER CARBONATE 800 MG POWD.PACK GT SCH ×3 (08:49→18:02)
[2020-06-26] MEDS: ACETAMINOPHEN 325 MG TABLET PO PRN ×2 (08:49→20:53)
[2020-06-26] MEDS: THIAMINE HCL 100 MG TABLET GT SCH (08:50)
[2020-06-26] MEDS: FAMOTIDINE (20 MG) 20 MG TABLET GT SCH (08:50)
[2020-06-26] MEDS: LEVETIRACETAM SOL (5 ML) 100 MG/ML UDC GT SCH ×2 (08:50→20:49)
[2020-06-26] MEDS: ACIDOPHILUS/BULGARICUS 1 EACH TAB.CHEW GT SCH (08:50)
[2020-06-26] MEDS: PROSOURCE / PROSTAT (PYXIS) 30 ML UDC GT SCH ×3 (08:51→18:15)
[2020-06-26] MEDS: DOCUSATE SODIUM LIQ 100 MG/10 ML UDC GT SCH (08:51)
[2020-06-26] MEDS: MEROPENEM 500 MG in IV NS 0.9% 50 ML IV SCH ×2 (08:51→20:49)
[2020-06-26] MEDS: ASCORBIC ACID 500 MG TABLET GT SCH ×3 (08:52→18:00)
[2020-06-26 09:49] LABS: HEMATOCRIT 20 % (33-45); HEMOGLOBIN 6.4 g/dL (11.5-14.8)
[2020-06-26 09:54] LABS: BAND % (MANUAL) 19 % (0.0-5.0); EOSINOPHILS % (MANUAL) 2 % (0-4); LYMPHOCYTES % (MANUAL) 8 % (16-48); MONOCYTES % (MANUAL) 6 % (0-11.0); NEUTROPHILS % (MANUAL) 65 (42-76)
[2020-06-26] MEDS ORDERED: LIDOCAINE 1%-EPI 1:100,000 20 ML VIAL TP ONE (10:00)
[2020-06-26] MEDS ORDERED: LIDOCAINE 1% INJ 50 ML MDV IJ ONE (10:00)
[2020-06-26] MEDS: POVIDONE-IODINE OINT 28.4 GM TUBE TP SCH (10:00)
[2020-06-26] MEDS ORDERED: EPINEPHRINE (1:10,000) SYRINGE 1 MG/10 ML DISP.SYRIN IV ONE (10:00)
--- NOTE | 2020-06-26 11:00 | NUR ---
Held tube feeding will start again at 1700
[2020-06-26] MEDS: INSULIN REGULAR, HUMAN 100 UNIT/ML 3 ML VIAL SQ PRN ×2 (12:53→23:42)
[2020-06-26] MEDS ORDERED: TOBRAMYCIN 80 MG in IV D5W 50 ML IV PRN (13:00)
[2020-06-26] MEDS ORDERED: INFLUENZA VACCINE 2020-21 0.5 ML DISP.SYRIN IM ONE (17:00)
[2020-06-26] MEDS ORDERED: PNEUMOCOCCAL 23-VAL P-SAC VAC 0.5 ML VIAL SQ ONE (17:00)
--- NOTE | 2020-06-26 17:54 | NUR ---
1 unit of prbc infused, patient tolerated well.
[2020-06-26] MEDS: ATORVASTATIN 40 MG TABLET GT SCH (20:51)
[2020-06-26] MEDS: HYDROCODONE/APAP 5/325MG TABLET PO PRN (20:54)
[2020-06-26] MEDS: INSULIN GLARGINE, 100 UNIT/ML CARTRIDGE SQ SCH (22:00)
[2020-06-27 04:00] VITALS: BP 134/66
[2020-06-27] MEDS: BLOOD SUGAR DIAGNOSTIC 1 EACH STRIP IN SCH ×3 (05:19→18:22)
[2020-06-27] MEDS: INSULIN REGULAR, HUMAN 100 UNIT/ML 3 ML VIAL SQ PRN ×2 (05:19→12:34)
--- NOTE | 2020-06-27 05:33 | NUR ---
RN notes In bed, resting comfortably with no distress noted. Breathing even and unlabored. On T-piece at 10lpm, well tolerated. Obtunded, non verbal. No physical manifestation of pain or discomfort. Kept clean and dry. Will endorse to next shift for continuity of care.
[2020-06-27 06:52] LABS: BASOPHILS # (AUTO) 0.1 /CMM (0.0-0.2); BASOPHILS % (AUTO) 0.4 % (0.0-2.0); EOSINOPHILS % (AUTO) 1.5 % (0.0-6.0); HEMATOCRIT 25 % (33-45); HEMOGLOBIN 8.3 g/dL (11.5-14.8); LYMPHOCYTES # (AUTO) 0.9 /CMM (0.8-4.8); LYMPHOCYTES % (AUTO) 4.8 % (20.0-44.0); MEAN CORPUSCULAR HGB CONC 33 g/dl (31.0-36.0); MEAN CORPUSCULAR VOLUME 96 fL (82-100); MONOCYTES % (AUTO) 5.6 % (2.0-12.0); NEUTROPHILS # (AUTO) 16.1 /CMM (1.8-8.9); NEUTROPHILS % (AUTO) 87.7 % (43.0-81.0); PLATELET COUNT (AUTO) 304 /CMM (150-450); RED BLOOD CELL COUNT(AUTO) 2.62 MIL/uL (4.0-5.2); WHITE BLOOD COUNT (AUTO) 18.4 K/uL (4.3-11.0)
--- NOTE | 2020-06-27 07:15 | NUR ---
RN OPENING NOTES RECEIVED PT IN BED, OBTUNDED AND OPENS EYES. PT IS ON T-PIECE PORTEX#8 @ 10 L/MIN SATURATING @ 100%. NO SOB OR ANY ACUTE RESPIRATORY DISTRESS AT THIS TIME. GTUBE PLACEMENT WAS CHECKED BY AUSCULTATION, NO RESIDUAL NOTED. TUBE FEEDING OF NEPRO @ 45 ML/HR, TOLERATING FEEDING WELL. IV SITES AT YEFRI MIDLINE INTACT, PATENT AND FLUSHED. AND R SUBCLAVIAN 2L CATH, FOR HD. NOTED B FEET WOUNDS WITH ODOR AND SACRAL DTI, DRESSINGS ARE DRY AND INTACT. SAFETY MEASURES OBSERVED. CALL LIGHT WITHIN REACH. HOB ELEVATED. BED IS LOCKED AND AT LOWEST POSITION WITH SIDE RAILS UP. ASPIRATION PRECAUTIONS MAINTAINED. WILL CONTINUE TO MONITOR.
[2020-06-27 07:27] LABS: CREATININE 3.9 mg/dL (0.6-1.3); MAGNESIUM 2.9 mg/dL (1.8-2.4); PHOSPHORUS 5.2 mg/dL (2.5-4.9); POTASSIUM 4.5 mmol/L (3.5-5.1)
[2020-06-27] MEDS: SEVELAMER CARBONATE 800 MG POWD.PACK GT SCH ×3 (08:00→18:16)
[2020-06-27] MEDS: POVIDONE-IODINE OINT 28.4 GM TUBE TP SCH ×2 (09:00→17:06)
[2020-06-27] MEDS: FAMOTIDINE (20 MG) 20 MG TABLET GT SCH (09:30)
[2020-06-27] MEDS: PROSOURCE / PROSTAT (PYXIS) 30 ML UDC GT SCH ×3 (09:30→17:06)
[2020-06-27] MEDS: ASCORBIC ACID 500 MG TABLET GT SCH ×3 (09:30→17:06)
[2020-06-27] MEDS: MEROPENEM 500 MG in IV NS 0.9% 50 ML IV SCH ×2 (09:30→22:00)
[2020-06-27] MEDS: ACIDOPHILUS/BULGARICUS 1 EACH TAB.CHEW GT SCH (09:30)
[2020-06-27] MEDS: DOCUSATE SODIUM LIQ 100 MG/10 ML UDC GT SCH (09:30)
[2020-06-27] MEDS: THIAMINE HCL 100 MG TABLET GT SCH (09:30)
[2020-06-27] MEDS: LEVETIRACETAM SOL (5 ML) 100 MG/ML UDC GT SCH ×2 (09:30→22:01)
--- NOTE | 2020-06-27 10:57 | NUR ---
Tobramycin trough level was 2.1 and pharafaelay was notified
[2020-06-27] MEDS: HYDROCODONE/APAP 5/325MG TABLET PO PRN (11:25)
[2020-06-27] MEDS: CLOTRIMAZOLE 1% 15 GM TUBE TP SCH ×2 (11:30→17:06)
[2020-06-27 12:00] VITALS: BP 160/69
--- NOTE | 2020-06-27 17:00 | NUR ---
RN NOTES CALLED DAUGHTER TOMMY REGARDING FLU AND PNEUMONIA VACCINE. REFUSED DESPITE EDUCATION X3. FEARS SIDE EFFECTS UPON THE PT. ALSO OBTAINED CONSENT FOR SERIAL RIGHT FOOT EXCISIONAL DEBRIDEMENT PER DR. GABRIEL.
--- NOTE | 2020-06-27 19:11 | NUR ---
RN CLOSING NOTES PT RESTING IN BED, OBTUNDED AND OPENS EYES. PT IS ON T-PIECE PORTEX#8 @ 10 L/MIN SATURATING @ 100%. NO SOB OR ANY ACUTE RESPIRATORY DISTRESS AT THIS TIME. GTUBE PLACEMENT WAS CHECKED BY AUSCULTATION, NO RESIDUAL NOTED. TUBE FEEDING OF NEPRO @ 45 ML/HR, TOLERATING FEEDING WELL. IV SITES AT YEFRI MIDLINE INTACT, PATENT AND FLUSHED. NOTED B FEET WOUNDS WITH ODOR AND SACRAL DTI, DRESSINGS ARE DRY AND INTACT. ALL MEDS ADMINISTERED ORDERED. NO SIGNIFICANT CHANGES. SAFETY MEASURES OBSERVED. CALL LIGHT WITHIN REACH. HOB ELEVATED. BED IS LOCKED AND AT LOWEST POSITION WITH SIDE RAILS UP. ASPIRATION PRECAUTIONS MAINTAINED. WILL ENDORSE TO NIGHT NURSE FOR LASHANDA.
--- NOTE | 2020-06-27 19:24 | NUR ---
RN OPENING NOTES RECEIVED PT RESTING IN BED. DNR/DNI NOTED. ABLE TO OPEN EYES, NON VERBAL. PT HAS T PIECE PORTEX AT 10L SATURATING WELL 100%. NO S/S OF SOB OR RESP DISTRESS. BREATHING IS EVEN AND UNLABORED AT THIS TIME. ON MED SURG MONITORING. GTUBE PRESENT, AUSCULTATED TO CONFIRM PLACEMENT. RESIDUALS CHECKED, 30CC. TOLERATING WELL. NEPRO RUNNING AT 45ML/HR. RIGHT UPPER ARM MIDLINE FLUSHED AND INTACT. PT IS BED BOUND WITH SAPPHIRE FEET WOUNDS NOTED, ODOROUS. BED IS LOCKED IN LOWEST POSITION WITH BED ALARM ON. CALL LIGHT WITHIN REACH. WILL CONTINUE TO MONITOR.
[2020-06-27 20:00] VITALS: BP 148/62
--- NOTE | 2020-06-27 20:45 | NUR ---
PT NOTED TO HAVE TEMP OF 99.[address] NON PHARM AT THIS TIME. WILL CONTINUE TO MONITOR.
[2020-06-27] MEDS: ATORVASTATIN 40 MG TABLET GT SCH (22:01)
[2020-06-27] MEDS: INSULIN GLARGINE, 100 UNIT/ML CARTRIDGE SQ SCH (22:59)
[2020-06-28] MEDS: BLOOD SUGAR DIAGNOSTIC 1 EACH STRIP IN SCH ×4 (00:43→18:56)
[2020-06-28] MEDS: INSULIN REGULAR, HUMAN 100 UNIT/ML 3 ML VIAL SQ PRN ×2 (01:18→06:39)
[2020-06-28 04:00] VITALS: BP 139/74
[2020-06-28] MEDS: HYDROCODONE/APAP 5/325MG TABLET PO PRN ×2 (04:52→17:32)
--- NOTE | 2020-06-28 04:56 | NUR ---
PT ADMINISTERED PAIN MEDICATION NORCO PRN NEEDED BEFORE WOUND CARE TX.
--- NOTE | 2020-06-28 05:10 | NUR ---
PT HR NOTED AT 120S, NORCO ADMINISTERED. FOR PAIN/WOUND TX. WILL CONTINUE TO MONITOR. Addendum: 06/28/20 at 0739 by SOFIA MUNGUIA RN CHARGE NURSE MADE AWARE WILL ENDORSE TO [facility]
[2020-06-28 06:26] LABS: BASOPHILS # (AUTO) 0.1 /CMM (0.0-0.2); BASOPHILS % (AUTO) 0.5 % (0.0-2.0); HEMATOCRIT 27 % (33-45); HEMOGLOBIN 9.1 g/dL (11.5-14.8); LYMPHOCYTES # (AUTO) 0.9 /CMM (0.8-4.8); MEAN CORPUSCULAR HGB CONC 33 g/dl (31.0-36.0); MEAN CORPUSCULAR VOLUME 97 fL (82-100); MONOCYTES # (AUTO) 1.1 /CMM (0.1-1.30); MONOCYTES % (AUTO) 7.5 % (2.0-12.0); PLATELET COUNT (AUTO) 293 /CMM (150-450); RED BLOOD CELL COUNT(AUTO) 2.82 MIL/uL (4.0-5.2); WHITE BLOOD COUNT (AUTO) 14.3 K/uL (4.3-11.0)
[2020-06-28 07:02] LABS: CALCIUM, SERUM 9.2 mg/dL (8.5-10.1); CREATININE 4.7 mg/dL (0.6-1.3); POTASSIUM 4.9 mmol/L (3.5-5.1)
--- NOTE | 2020-06-28 07:09 | NUR ---
RN CLOSING NOTES PT RESTING IN BED. NO SOB OR RESP NOTED AT THIS TIME. BREATHING IS EVEN AND UNLABORED. SATURATING AT 100%. HOB ELEVATED. STILL RECEIVING FEEDING. AT 45ML/HR. TOLERATING WELL. IV SITE FLUSHED. MEDS GIVEN ORDERED. SUCTION NEEDED. BED BATH GIVEN, WOUND TREATMENT PERFORMED ORDERED. BED IS LOCKED IN LOWEST POSITION. CALL LIGHT WITHIN REACH. BED ALARM ON. DELIVERY HELPER CURRENTLY MAKING ROUNDS. HR STILL IN 120s. ENDORSED TO AM NURSE FOR CONTINUATION OF CARE.
--- NOTE | 2020-06-28 07:25 | NUR ---
RN OPENING NOTES RECEIVED PT IN BED. OBTUNDED, OPENS EYES, NON VERBAL. PT HAS T PIECE PORTEX @ 10L SATURATING @100%. NO SOB OR ANY RESPIRATORY DISTRESS NOTED. GTUBE FEEDING OF NEPHRO @45ML/HR, AUSCULTATED TO CONFIRM POSITIVE PLACEMENT. RESIDUAL OF LESS THAN 10ML. TOLERATING FEEDING WELL. YEFRI MIDLINE INTACT, PATENT AND FLUSHED. BOTH FEET WOUNDS NOTED, WITH ODOR. SAFETY MEASURES OBSERVED. CALL LIGHT WITHIN REACH. BED LOCKED AND AT LOWEST POSITION. WILL CONTINUE TO MONITOR.
--- NOTE | 2020-06-28 07:29 | NUR ---
RN aware on 120 HR Addendum: 06/28/20 at 0730 by SILVESTRE SAMAYOA RT Amended: Links added.
[2020-06-28] MEDS: SEVELAMER CARBONATE 800 MG POWD.PACK GT SCH ×3 (08:55→17:31)
[2020-06-28 08:56] VITALS: BP 121/55
[2020-06-28] MEDS: THIAMINE HCL 100 MG TABLET GT SCH (08:56)
[2020-06-28] MEDS: DOCUSATE SODIUM LIQ 100 MG/10 ML UDC GT SCH (08:56)
[2020-06-28] MEDS: PROSOURCE / PROSTAT (PYXIS) 30 ML UDC GT SCH ×3 (08:56→17:31)
[2020-06-28] MEDS: ASCORBIC ACID 500 MG TABLET GT SCH ×3 (08:56→17:31)
[2020-06-28] MEDS: LEVETIRACETAM SOL (5 ML) 100 MG/ML UDC GT SCH ×2 (08:56→21:07)
[2020-06-28] MEDS: FAMOTIDINE (20 MG) 20 MG TABLET GT SCH (08:56)
[2020-06-28] MEDS: ACIDOPHILUS/BULGARICUS 1 EACH TAB.CHEW GT SCH (08:56)
[2020-06-28] MEDS: MEROPENEM 500 MG in IV NS 0.9% 50 ML IV SCH ×2 (08:57→21:07)
[2020-06-28] MEDS: ACETAMINOPHEN 325 MG TABLET PO PRN ×2 (08:59→19:34)
[2020-06-28] MEDS: POVIDONE-IODINE OINT 28.4 GM TUBE TP SCH ×2 (09:00→17:24)
[2020-06-28] MEDS: CLOTRIMAZOLE 1% 15 GM TUBE TP SCH ×2 (09:00→17:24)
--- NOTE | 2020-06-28 10:05 | NUR ---
RN NOTES CALLED TOMMY, PT'S DAUGHTER TO OBTAIN CONSENT FOR TEMPORARY HD CATH. WITNESSED BY BROOKE BARR
[2020-06-28 12:00] VITALS: BP 121/55
[2020-06-28] MEDS ORDERED: LIDOCAINE 1% INJ 50 ML MDV IJ ONE (13:00)
[2020-06-28] MEDS ORDERED: HEPARIN SODIUM, PORCINE 1000 UNIT/1 ML VIAL IV ONE (13:00)
--- NOTE | 2020-06-28 15:30 | NUR ---
RN NOTES TEMPORARY HD CATH WAS PLACED IN BEDSIDE BY DR. GARCIA. USED 3000 UNITS OF HEPARIN. XRAY STAT WAS DONE TO CONFIRM PLACEMENT. PT IN STABLE CONDITION. RETURNED 3000 UNITS OF HEPARIN AND LIDOCAINE TO PHARMACY. WILL CONTINUE TO MONITOR
--- NOTE | 2020-06-28 19:37 | NUR ---
RN CLOSING NOTES PT RESTING IN BED. OBTUNDED, OPENS EYES, NON VERBAL. PT HAS T PIECE PORTEX @ 10L SATURATING @100%. NO SOB OR ANY RESPIRATORY DISTRESS NOTED. GTUBE FEEDING OF NEPHRO @45ML/HR, AUSCULTATED TO CONFIRM POSITIVE PLACEMENT. RESIDUAL OF LESS THAN 10ML. TOLERATING FEEDING WELL. YEFRI MIDLINE INTACT, PATENT AND FLUSHED. BOTH FEET WOUNDS NOTED, WITH ODOR. S/P TEMPORARY HD CATH PLACEMENT. SAFETY MEASURES OBSERVED. CALL LIGHT WITHIN REACH. BED LOCKED AND AT LOWEST POSITION. WILL ENDORSE TO NIGHT NURSE FOR LASHANDA.
--- NOTE | 2020-06-28 19:45 | NUR ---
RN NOTE RECEIVED PT IN BED. OBTUNDED, OPENS EYES, NON VERBAL. PT HAS T PIECE PORTEX @ 10L SATURATING. NO SOB NOTED GTUBE FEEDING OF NEPHRO AT 45ML/HR, TOLERATING FEEDING WELL. YEFRI MIDLINE PATENT, INTACT AND FLUSHING WELL. RIGHT TEMPORARY HD CATH INTACT. SAFETY MEASURES IN PLACE. CALL LIGHT WITHIN REACH. BED LOCKED AND AT LOWEST POSITION, WILL CONTINUE TO MONITOR PT
[2020-06-28 20:00] VITALS: BP 137/92
--- NOTE | 2020-06-28 20:07 | NUR ---
RN NOTE RECHECKED TEMP AFTER TYLENOL GIVEN. TEMP 99.9 AX. WILL CONTINUE TO MONITOR
[2020-06-28] MEDS: ATORVASTATIN 40 MG TABLET GT SCH (21:07)
[2020-06-28] MEDS: INSULIN GLARGINE, 100 UNIT/ML CARTRIDGE SQ SCH (22:17)
[2020-06-29] MEDS: BLOOD SUGAR DIAGNOSTIC 1 EACH STRIP IN SCH ×2 (00:10→06:01)
[2020-06-29] MEDS: INSULIN REGULAR, HUMAN 100 UNIT/ML 3 ML VIAL SQ PRN ×2 (00:14→06:08)
[2020-06-29 04:00] VITALS: BP 112/62
--- NOTE | 2020-06-29 06:54 | NUR ---
RN NOTE PT REMAINED AFEBRILE DURING SHIFT. HR IN 120'S O2 SAT 99-100% IN NO RESPIRATORY DISTRESS. NO CURRENT CHANGES. WOUND CARE TO FEET COMPLETED. YEFRI MIDLINE PATENT AND INTACT. ENDORSED TO AM RN FOR LASHANDA
--- NOTE | 2020-06-29 07:15 | NUR ---
MS RN NOTES PATIENT IN BED NON VERBAL, OPENS EYES. NO ACUTE DISTRESS NOTED. BREATHING UNLABORED. WITH T PIECE ON 10 LPM . NO SOB NOTED. IV ACCESS PATENT AND INTACT, NO REDNESS, NO SWELLING NOTED. G TUBE FEEDING INFUSING NEPHRO AT 45 MLS PER HOUR. HEAD OF BED ELEVATED. SAFETY MEASURES IN PLACE. WILL CONTINUE TO MONITOR ACCORDINGLY.
[2020-06-29] MEDS: DOCUSATE SODIUM LIQ 100 MG/10 ML UDC GT SCH (08:35)
[2020-06-29] MEDS: LEVETIRACETAM SOL (5 ML) 100 MG/ML UDC GT SCH (08:35)
[2020-06-29] MEDS: FAMOTIDINE (20 MG) 20 MG TABLET GT SCH (08:35)
[2020-06-29] MEDS: ASCORBIC ACID 500 MG TABLET GT SCH (08:35)
[2020-06-29] MEDS: ACIDOPHILUS/BULGARICUS 1 EACH TAB.CHEW GT SCH (08:35)
[2020-06-29] MEDS: SEVELAMER CARBONATE 800 MG POWD.PACK GT SCH (08:35)
[2020-06-29] MEDS: MEROPENEM 500 MG in IV NS 0.9% 50 ML IV SCH (08:37)
[2020-06-29] MEDS: THIAMINE HCL 100 MG TABLET GT SCH (08:40)
[2020-06-29] MEDS: PROSOURCE / PROSTAT (PYXIS) 30 ML UDC GT SCH (08:41)
[2020-06-29] MEDS: CLOTRIMAZOLE 1% 15 GM TUBE TP SCH (08:42)
[2020-06-29] MEDS: POVIDONE-IODINE OINT 28.4 GM TUBE TP SCH (08:43)
--- NOTE | 2020-06-29 11:15 | NUR ---
MS RN NOTES PATIENT DISCHARGE TO [facility]. DAUGHTER AND HOSPICE NURSE AT BEDSIDE.
== END 2020-06-29 11:28 | disposition hospice, inpatient (51) | DRG 981 ==
LOC: ER 16:29 → TELE2 20:56 → TELE1 06-03 21:51 → MEDSG1 06-07 09:19
PROVIDERS: ATTEND Nurse Practitioner Acute Care
PROC: 30233N1 Transfusion of Nonautologous Red Blood Cells into Peripheral Vein, Percutaneous Approach (ICD-10-PCS; 2020-06-03)
PROC: 5A1D70Z Performance of Urinary Filtration, Intermittent, Less than 6 Hours Per Day (ICD-10-PCS; 2020-06-04)
PROC: 009U3ZX Drainage of Spinal Canal, Percutaneous Approach, Diagnostic (ICD-10-PCS; 2020-06-06)
PROC: B01BYZZ Fluoroscopy of Spinal Cord using Other Contrast (ICD-10-PCS; 2020-06-06)
PROC: 05HY33Z Insertion of Infusion Device into Upper Vein, Percutaneous Approach (ICD-10-PCS; 2020-06-11)
PROC: 0LBV0ZZ Excision of Right Foot Tendon, Open Approach (ICD-10-PCS; principal; 2020-06-23)
PROC: 05PYX3Z Removal of Infusion Device from Upper Vein, External Approach (ICD-10-PCS; 2020-06-27)
PROC: 0LBV0ZZ Excision of Right Foot Tendon, Open Approach (ICD-10-PCS; 2020-06-28)
PROC: 02HV33Z Insertion of Infusion Device into Superior Vena Cava, Percutaneous Approach (ICD-10-PCS; 2020-06-28)
PROC: B548ZZA Ultrasonography of Superior Vena Cava, Guidance (ICD-10-PCS; 2020-06-28)
DX: T80.211A Bloodstream infection due to central venous catheter, initial encounter (principal); A41.9 Sepsis, unspecified organism; N18.6 End stage renal disease; G93.41 Metabolic encephalopathy; R53.2 Functional quadriplegia; E44.0 Moderate protein-calorie malnutrition; J96.10 Chronic respiratory failure, unspecified whether with hypoxia or hypercapnia; N39.0 Urinary tract infection, site not specified; I70.261 Atherosclerosis of native arteries of extremities with gangrene, right leg; G91.9 Hydrocephalus, unspecified; L03.115 Cellulitis of right lower limb; L02.611 Cutaneous abscess of right foot; I12.0 Hypertensive chronic kidney disease with stage 5 chronic kidney disease or end stage renal disease; E11.52 Type 2 diabetes mellitus with diabetic peripheral angiopathy with gangrene; L97.428 Non-pressure chronic ulcer of left heel and midfoot with other specified severity; L97.418 Non-pressure chronic ulcer of right heel and midfoot with other specified severity; L97.528 Non-pressure chronic ulcer of other part of left foot with other specified severity; I70.263 Atherosclerosis of native arteries of extremities with gangrene, bilateral legs; D53.9 Nutritional anemia, unspecified; G40.909 Epilepsy, unspecified, not intractable, without status epilepticus; Z79.4 Long term (current) use of insulin; Z93.0 Tracheostomy status; Z98.2 Presence of cerebrospinal fluid drainage device; Z86.73 Personal history of transient ischemic attack (TIA), and cerebral infarction without residual deficits; Z99.2 Dependence on renal dialysis; E87.6 Hypokalemia; E88.09 Other disorders of plasma-protein metabolism, not elsewhere classified; I70.244 Atherosclerosis of native arteries of left leg with ulceration of heel and midfoot; I70.234 Atherosclerosis of native arteries of right leg with ulceration of heel and midfoot; D63.8 Anemia in other chronic diseases classified elsewhere; E11.42 Type 2 diabetes mellitus with diabetic polyneuropathy; E11.22 Type 2 diabetes mellitus with diabetic chronic kidney disease; E11.621 Type 2 diabetes mellitus with foot ulcer; E83.39 Other disorders of phosphorus metabolism; Z83.3 Family history of diabetes mellitus; Z87.440 Personal history of urinary (tract) infections; R13.10 Dysphagia, unspecified; M85.80 Other specified disorders of bone density and structure, unspecified site; Z79.899 Other long term (current) drug therapy; Z51.5 Encounter for palliative care; R47.02 Dysphasia; Z74.01 Bed confinement status; L30.4 Erythema intertrigo; J01.90 Acute sinusitis, unspecified; H70.90 Unspecified mastoiditis, unspecified ear; M24.562 Contracture, left knee; M24.561 Contracture, right knee; B96.1 Klebsiella pneumoniae [K. pneumoniae] as the cause of diseases classified elsewhere; L89.156 Pressure-induced deep tissue damage of sacral region; G93.89 Other specified disorders of brain; Z66 Do not resuscitate
CPT/HCPCS: 31720; 36410; 36415; 36600; 70450-TC; 70470-TC; 70551-TC; 71045-TC; 73630-TC; 80048-TC; 80061-TC; 80076-TC; 80150; 80202-TC; 81000-TC; 82728-TC; 82784; 82803-TC; 82947-TC; 82962-TC; 83540-TC; 83605-TC; 83690-TC; 83735-TC; 84100-TC; 84155; 84165; 84443-TC; 84484-TC; 85025-TC; 85610-TC; 85652-TC; 85730-TC; 86140-TC; 86334; 86592; 86694; 86706; 86788; 86789; 86850-TC; 87040-TC; 87070-TC; 87081-TC; 87086-TC; 87186-TC; 87340; 89051-TC; 90732; 90935-TC; 93307-TC; 93970-TC; 94640-TC; 94664-TC; 94760-TC; 94762-TC; 94799-TC; 95819-TC; 99082-TC; A4216; A4623; A6253; A6403; C1750; G0378; J0278; J0692; J0885; J1644; J1815; J1953; J2185; J2405; J3260; J3370; J3490; J7030; J7040; J7050; J7060; P9016-BL; Q2036; Q9967; U0003

== ENCOUNTER 2020-06-29 11:19 | Inpatient (IN) | payer OTHER ==
[~2020-06-29] VITALS: Ht 165.1 cm; Wt 61.7 kg
[~2020-06-29 11:19] MED LIST changes: +ACET-868 GT; +ACID1TAB12 GT; +AMIN30LI27 GT; +ASCO-352 GT; -ASPI-1420 PO; +ATOR40TA GT; -CALC667C6 PO; -CARV3.122 GT; +DOCU-141 GT; +FAMO20TA8 GT; -FOLI0.8T23 PO; +HEPA50008 SQ; +INSU100V3 SQ; +Insulin Glargine,Hum SQ; +LEVE100S GT; +MERO500V21 IV; +MIDO10TA GT; -NIFE90TA38 PO; +Nepro GT; +POLY15DR40 EACHEYE; +THIA100T68 GT; -[UNRECOGNIZED DRUG - CODE] IV
--- NOTE | 2020-06-29 12:32 | NUR ---
MS RN NOTES PATIENT ADMITTED TO [facility] UNDER GIP. DAUGHTER AND HOSPICE NURSE AT BEDSIDE. RECEIVED NEW ORDER FROM DR PETTIT WITH NEW ORDERS MADE, NOTED AND CARRIED OUT.
[2020-06-29] MEDS ORDERED: KEY,NONCONTROL,TO KEEP IN PYXI 1 EA MC ONE ×2 (13:16→20:31)
[2020-06-29] MEDS: D5W IV SCH (13:19)
[2020-06-29] MEDS: MORPHINE SULFATE IV SCH (13:19)
--- NOTE | 2020-06-29 13:19 | NUR ---
MS RN STARTED MORPHINE DRIP AT 1 MG PER HOUR WITNESSED BY ANOTHER RN CLAUDIA.
[2020-06-29] MEDS ORDERED: IV NS 0.9% 250 ML IV PRN (13:30)
[2020-06-29] MEDS ORDERED: ACETAMINOPHEN 650 MG/20.3 ML UDC GT PRN (15:00)
[2020-06-29] MEDS: SCOPOLAMINE HBR 1 EA PATCH.TD72 TD SCH (16:03)
[2020-06-29] MEDS: CLOTRIMAZOLE 1% 15 GM TUBE TP SCH (17:54)
[2020-06-29] MEDS: POVIDONE-IODINE OINT 28.4 GM TUBE TP SCH (17:54)
--- NOTE | 2020-06-29 17:59 | NUR ---
MS RN NOTES RECEIVED NEW ORDER ELISSA PETTIT FAMILY MAY VISIT PATIENT, NOTED AND CARRIED OUT
--- NOTE | 2020-06-29 18:52 | NUR ---
MS RN CLOSING NOTES PATIENT IN BED NON VERBAL, OPENS EYES. NO ACUTE DISTRESS NOTED. BREATHING UNLABORED. WITH T PIECE ON 10 LPM . NO SOB NOTED. IV ACCESS PATENT AND INTACT, NO REDNESS, NO SWELLING NOTED.MORPHINE DRIP ON GOING AT 1 MG/HR. PATIENT KEPT COMFORTABLE. NO FACIAL GRIMACING NOTED. HEAD OF BED ELEVATED. NEEDS ATTENDED AND ANTICIPATED. KEPT CLEAN DRY AND COMFORTABLE. SAFETY MEASURES IN PLACE. CALL LIGHT WITHIN REACH. WILL ENDORSE TO NIGHT NURSE FOR CONTINUITY OF CARE.
--- NOTE | 2020-06-29 19:30 | NUR ---
RN OPENING NOTE RECEIVED PATIENT IN BED, OBTUNDED, DAUGHTER TOMMY AT BEDSIDE. PATIENT IN NO S/SX OF ACUTE DISTRESS AT THIS TIME. PATIENT'S BREATHING IS EVEN AND UNLABORED. PATIENT IS ON T-PIECE PORTEX#8 AT 10 L/MIN, TOLERATING WELL, SATURATING AT 98%. NOTED GTUBE CLAPMED, PLACEMENT WAS CHECKED BY ASPIRATION AND AUSCULTATION. NOTED YEFRI MIDLINE AND R SUBCLAVIAN 2L CATH, BOTH PATENT AND FLUSHING WELL, NS INFUSING AT TKO AND MORPHINE DRIP AT 1 MG/HOUR. NOTED B FOOT WOUNDS WITH ODOR, AND SACRAL DTI, DRESSING ARE DRY AND INTACT. SAFETY MEASURES IMPLEMENTED PER PROTOCOL. PATIENT BED ALARM IS ON. HEAD OF BED ELEVATED. BED IS LOCKED, IN LOWEST POSITION AND SIDE RAILS UP. ASPIRATION PRECAUTIONS MAINTAINED. WILL CONTINUE TO MONITOR AND REASSESS FOR ANY CHANGES.
[2020-06-29 19:56] VITALS: BP 143/75
[2020-06-29 20:00] VITALS: BP 143/75
--- NOTE | 2020-06-29 20:00 | NUR ---
RN NOTE NOTED TEMP 99.0. COOLING MEASURES PROVIDED. COLD COMPRESS PLACED OVER FOREHEAD AND BOTH AXILLA. TEMP RECHECKED AND RESULTED, 98.7 DEG. WILL CONTINUE TO MONITOR.
[2020-06-30] VITALS (7 sets, daily range): BP systolic 120–145; BP diastolic 67–81
[2020-06-30] MEDS: MORPHINE SULFATE IV SCH ×3 (01:19→20:36)
[2020-06-30] MEDS: D5W IV SCH ×3 (01:19→20:36)
--- NOTE | 2020-06-30 01:19 | NUR ---
RN NOTE ACTUAL TIME MORPHINE DRIP 1 MG/HR RE-STARTED AT 06/29/20202039. ART MODEL AWARE.
--- NOTE | 2020-06-30 07:43 | NUR ---
RN CLOSING NOTE PATIENT REMAINS IN ROOM. NO SIGNS OF RESPIRATORY DISTRESS. PATIENT IS ON 10 L OF OXYGEN VIA NC FIO2 40%, TOLERATING WELL, SATURATING AT 99-100%. MORPHINE DRIP AT 1 MG/HR INFUSING. SAFETY MEASURES IMPLEMENTED. ALL NEEDS ADDRESSED DURING THE SHIFT. ALL DUE MEDS GIVEN ORDERED & SCHEDULED; PATIENT TOLERATED WELL. PATIENT KEP CLEAN AND DRY. ENDORSED TO LINDSEY BARR FOR CONTINUATION OF CARE.
--- NOTE | 2020-06-30 07:57 | NUR ---
OTBY RN NOTES RECEIVED PATIENT IN THE BED, ON HOSPICE, DNR/DNI, MORPHINE DRIP 1 ML/ HR ON RIGHT MIDLINE INTACT. PATIENT TRACHEA ON O2-100 %, NO ACUTE RESPIRATORY DISTRESS. ASSIST PATIENT TURN AND REPOSTION Q 2 HR. COMFORT MEASURE PROVIDED Q 2 HR. WILL CONTINUE MONITORING.
[2020-06-30] MEDS ORDERED: KEY,NONCONTROL,TO KEEP IN PYXI 1 EA MC ONE (08:49)
--- NOTE | 2020-06-30 09:00 | NUR ---
RN NOTES STARTED NEW BAG OF MORPHINE SULFATE 30 ml hr , INFUSING 1 ML AT THIS TIME . WASTED MEDICATION WITH CHARGE NURSE.
[2020-06-30] MEDS: CLOTRIMAZOLE 1% 15 GM TUBE TP SCH ×2 (09:05→16:17)
[2020-06-30] MEDS: POVIDONE-IODINE OINT 28.4 GM TUBE TP SCH ×2 (09:05→16:17)
--- NOTE | 2020-06-30 12:16 | NUR ---
RN NOTES PATIENTS DAUGHTER NEXT TO THE PATIENT, PER DAUGHTER WANTED KETTLE SKIMMER , PER HOSPITAL PATIENT DO NOT HAVE SERVICE, BUT NOTIFIED HOSPICE, AND THEY ARE WILL PROVIDE KETTLE SKIMMER.
--- NOTE | 2020-06-30 14:00 | NUR ---
RN NOTES [employer] MANAGER AND PATIENTS DAUGHTER NEXT TO THE BE FOR SPIRITUAL SERVICE.
--- NOTE | 2020-06-30 18:21 | NUR ---
RN NOTES PATIENT ON HOSPICE V/S TAKEN R-5, P-115, BP-141/72, T-98, DAUGHTER NEXT TO THE BED, ASSIST TURN AND REPOSTION Q 2HR, INFUSING MORPHINE SULFATE 1 ML/HR ON RIGHT UA MIDLINE. COMFORT CARE PROVIDED. ENDORSED ONCOMING NURSE FOLLOW PLAN OF CARE.
--- NOTE | 2020-06-30 19:50 | NUR ---
RN NOTE PT IS ON HOSPICE COMFORT CARE VITAL SIGNS ARE TEMP 98.2, HR 115, RR 7, O2 SAT 100%, BP 145/80. WILL CONTINUE TO MONITOR.
--- NOTE | 2020-06-30 22:00 | NUR ---
RN NOTE MORPHINE BAG CHANGED AT 2035. MORPHINE IS BEING INFUSED AT 1MG/H. PT REMAINS WITH SLIGHTLY LABORED BREATHING. MOUTH CARE GIVEN, AND REPOSITIONED THE PT.
--- NOTE | 2020-07-01 01:45 | NUR ---
RN NOTE PT RR FROM 7 TO 5,O2 SAT REMAINED 100%.
[2020-07-01 04:00] VITALS: BP 137/69
--- NOTE | 2020-07-01 07:04 | NUR ---
RN NOTES PATIENT ON HOSPICE, RECENT VS ARE BP 135/66, HR 108, O2 100%, RR 4, T 97.6, MORPHINE SULFATE INFUSING 1 ML/HR ON RIGHT UPPER MIDLINE. COMFORT CARE PROVIDED. REPORT GIVEN TO INCOMING SHIFT FOR LASHANDA.
--- NOTE | 2020-07-01 07:24 | NUR ---
RN OPENING NOTES RECEIVED PATIENT IN BED, OBTUNDED. NOT IN ANY ACUTE DISTRESS AT THIS TIME. PATIENT'S BREATHING IS EVEN AND UNLABORED. PATIENT IS ON T-PIECE PORTEX#8 AT 10 L/MIN, TOLERATING WELL, SATURATING AT 100%. NOTED GTUBE CLAPMED, WITH NO RESIDUAL. NOTED YEFRI MIDLINE AND R SUBCLAVIAN 2L CATH, BOTH PATENT AND FLUSHING WELL, NS INFUSING AT TKO AND MORPHINE DRIP AT 1 MG/HOUR. NOTED B FOOT WOUNDS WITH ODOR, AND SACRAL DTI, DRESSING ARE DRY AND INTACT. SAFETY MEASURES IMPLEMENTED PER PROTOCOL. PATIENT BED ALARM IS ON. HEAD OF BED ELEVATED. BED IS LOCKED, IN LOWEST POSITION AND SIDE RAILS UP. ASPIRATION PRECAUTIONS MAINTAINED. WILL CONTINUE TO MONITOR.
[2020-07-01 08:00] VITALS: BP 114/63
[2020-07-01] MEDS: MORPHINE SULFATE IV SCH ×2 (08:30→20:35)
[2020-07-01] MEDS: D5W IV SCH ×2 (08:30→20:35)
[2020-07-01] MEDS ORDERED: KEY,NONCONTROL,TO KEEP IN PYXI 1 EA MC ONE ×4 (08:34→20:29)
[2020-07-01] MEDS: POVIDONE-IODINE OINT 28.4 GM TUBE TP SCH ×2 (09:01→17:26)
[2020-07-01] MEDS: CLOTRIMAZOLE 1% 15 GM TUBE TP SCH ×2 (09:01→17:26)
--- NOTE | 2020-07-01 10:00 | NUR ---
SPOKE TO TOMMY DAUGHTER [phone]. SHE WILL TRY TO GET ARRANGEMENT WITH AFTER [facility]. IT IS HER UNDERSTANDING THAT THE PATIENT WILL BE HERE UNTIL SATURDAY.
[2020-07-01 12:00] VITALS: BP 142/52
--- NOTE | 2020-07-01 15:30 | NUR ---
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 SUCTION KEPT AT BEDSIDE. TURNED TO RIGHT SIDE FOR COMFORT AND ASPIRATION PRECAUTION. UPON END OF SEIZURE, VITAL SIGNS TAKEN WITH RESULTS ARE FOLLOWS: 98.3, 80, 20, 100%, 135/66. MINE DEPUTY AWARE WITH NEW ORDERS GIVEN FROM MD, TO INCREASE MORPHINE DRIP VIA CONTINUES PUMP FROM 1MG/HR TO 2MG/HR. ORDERS CARRIED OUT ORDERED. PT APPEARS COMFORTABLE. WILL CONTINUE TO MONITOR.
[2020-07-01] MEDS ORDERED: SCOPOLAMINE HBR 1 EA PATCH.TD72 TD SCH (17:30)
[2020-07-01] MEDS: SCOPOLAMINE HBR 1 EA PATCH.TD72 TD SCH (18:23)
--- NOTE | 2020-07-01 19:30 | NUR ---
HEAT TREAT INSPECTOR CLOSING NOTES PATIENT REMAINS IN ROOM. NOT IN ANY RESPIRATORY DISTRESS. PATIENT IS ON 10 L OF OXYGEN VIA NC FIO2 40%, TOLERATING WELL, SATURATING AT 99-100%. MORPHINE DRIP AT 2 MG/HR INFUSING. SAFETY MEASURES IMPLEMENTED. ALL NEEDS ADDRESSED DURING THE SHIFT. PATIENT TOLERATED WELL. PATIENT KEPT CLEAN AND DRY. ENDORSED TO NEXT SHIFT FOR LASHANDA.
--- NOTE | 2020-07-01 19:30 | NUR ---
RN OPENING NOTES RECEIVED PT IN BED. OBTUNDED NONVERBAL. A/O X 0. PT IS CURRENT[facility] BEING FOLLOWED [facility]. STILL RECEIVING O2 ORDERED 10L VIA T PIECE PORTEX FIO2 OF 40% SATURATING AT 98%. BREATHING IS LABORED, FREQUENT SUCTIONING NEEDED. NO RESP DISTRESS OR SOB NOTED. MORPHINE VIA MANUAL LATHE OPERATOR PUMP BEING DELIVERED 2MG/HR. PT IS NPO. GTUBE PRESENT BUT ORDERS TO D/C FEEDING NOTED. PT HAS DRY DRESSINGS ON SAPPHIRE FEET. WILL CONTINUE WOUND TX ORDERED. BED IS LOCKED IN LOWEST POSITION. WILL CONTINUE TO CLOSELY MONITOR.
[2020-07-01 20:00] VITALS: BP 112/54
--- NOTE | 2020-07-01 20:14 | NUR ---
PT TRANSFERRED TO ROOM 319 FOR LASHANDA.
--- NOTE | 2020-07-01 20:15 | NUR ---
DAUGHTER GERDA IS AT BEDSIDE.
--- NOTE | 2020-07-01 20:35 | NUR ---
NEW BAG MORPHINE DRIP 2MG/HR. WASTED PREVIOUS BAG. BOTH WITNESSED WITH HILARY BARR. CHARGE NURSE MADE AWARE.
--- NOTE | 2020-07-02 01:35 | NUR ---
AT BED SIDE WITH RT, CHANGED SOILED TRACH TIES. SUCTIONED. WILL CONTINUE TO MONITOR.
[2020-07-02 04:00] VITALS: BP 106/54
--- NOTE | 2020-07-02 04:35 | NUR ---
MORPHINE DRIP STILL RUNNING 2ML/HR, NEXT DOSE NOT DUE UNTIL 0835.
--- NOTE | 2020-07-02 05:10 | NUR ---
PT SUCTIONED AND HAD SMALL SOFT BROWN BOWEL MOVEMENT DURING LINEN CHANGE.
--- NOTE | 2020-07-02 06:26 | NUR ---
EMAR SAYS NEXT MORPHINE BAG IS DUE 518 BUT CURRENT BAG SCHEDULED TO RUN UNTIL 829. PHARMACY AND CHARGE NURSE AWARE.
--- NOTE | 2020-07-02 06:53 | NUR ---
RN CLOSING NOTE PT IS RESTING. STILL ON TPIECE PORTEX 8 ON O2. 10L, FIO2 40. SATURATING WELL AT 100%. [facility] STILL IN PL[facility]. REACTIVE TO SUCTIONING. WOUND TREATMENT PERFORMED ORDERED. TURNED AND REPOSITIONED Q2H. LAST VITAL SIGNS. TEMP 98.9 HR 59 BP 106/54 RR 10 O2 SAT 100. MORPHINE DRIP STILL RUNNING AT 2ML/HR. BED IS LOCKED IN LOWEST POSITION. BED ALARM ON. WILL ENDORSE TO ONCOMING NURSE FOR CONTINUATION OF CARE.
--- NOTE | 2020-07-02 07:30 | NUR ---
Opening Notes: Report received from night RN. 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 Patient with continuous pain medication as ordered, patient tolerating well. No s/s of distress or discomfort. Comfort measures provided. Patient continuously monitored.
[2020-07-02 08:00] VITALS: BP 95/43
[2020-07-02] MEDS: D5W IV SCH (08:14)
[2020-07-02] MEDS: MORPHINE SULFATE IV SCH (08:14)
[2020-07-02] MEDS: POVIDONE-IODINE OINT 28.4 GM TUBE TP SCH ×2 (14:35→16:56)
[2020-07-02] MEDS: CLOTRIMAZOLE 1% 15 GM TUBE TP SCH ×2 (14:36→16:56)
[2020-07-02 16:00] VITALS: BP 86/32
--- NOTE | 2020-07-02 18:03 | NUR ---
STRIPER SPRAY GUN AT THE BEDSIDE AND IS PRAYING FOR THE PT.FAMILY WAS PROVIDED EMOTIONAL SUPPORT AND ACTIVE LISTENING . PT'S MORTUARY IS: [facility] [employer] [place] .
--- NOTE | 2020-07-02 18:19 | NUR ---
Closing Notes: Patient alert, nonverbal, family at bedside. Linens changed, kept clean and dry, dressing changed. Patient NPO. Patient turned and repositioned every 2 hours. Patient was seen by hospice nurse at 15:00. Bed locked and in lowest position. Comfort measures provided. Patient continuously monitored.
--- NOTE | 2020-07-02 19:10 | NUR ---
AT THE BEDSIDE WITH PATIENT AND FAMILY, PT IS NON RESPONSIVE TO VERBAL/TACTILE STIMULI ,NO SPONTANEOUS MOVEMENTS WERE PRESENT.PUPILS WERE DILATED AND FIXED. NO BREATH SOUNDS WERE APPRECIATED. BP UNAPPRECIATED HR UNAPPRECIATED RR 0 .NO CAROTID PULSES PALPABLE.NO HEART SOUNDS WITH AUSCULTATION.PRONOUNCED PT'S .EMOTIONAL SUPPORT PROVIDED TO THE FAMILY.
--- NOTE | 2020-07-02 19:14 | NUR ---
CALLED [facility] ([phone]) AND SPOKE TO MARTA AND GAVE THE INFO.MARTA STATED THAT THE PT IS NOT ELIGIBLE FOR DONOR.ID # [phone].
--- NOTE | 2020-07-02 19:16 | NUR ---
NOTIFIED YIFAN MCFADDEN OF PT'S .
--- NOTE | 2020-07-02 19:20 | NUR ---
CALLED [facility] AND SPOKE TO PAZ OF [facility] WHO WILL NOTIFY DR PETTIT (BINDING FOLDER MACHINE) WELL.
--- NOTE | 2020-07-02 19:30 | NUR ---
NOTIFIED MARIANO OF ADMITTING DEPT AND NOTIFIED LEDA THOMPSONHAT BINDER.
--- NOTE | 2020-07-02 19:46 | NUR ---
[facility]ED [facility] AND SPOKE TO WALTER WHO STATED THAT THE PT'S TIME OF ARRIVAL WITHIN 90 MINS.NOTIFIED FAMILY MEMBERS WHO VISITED THE PT ONE AT A TIME. ENDORSED TO NIGHT NURSEMARISABEL RN FOR POST MORTEM CARE AND AWAITING FOR BUILDING INSULATION INSTALLER OF REMAINS.
[2020-07-02] MEDS ORDERED: KEY,NONCONTROL,TO KEEP IN PYXI 1 EA MC ONE (19:55)
--- NOTE | 2020-07-02 19:56 | NUR ---
Patient at 19:10, family at bedside. MD notified. Hospice medical nurse notified. [facility] informed, family's mortuary of choice notified. Ordered Morphine discontinued, 5 ml left, wasted, witnessed by another RN.
[2020-07-02] MEDS ORDERED: D5W IV SCH (20:00)
[2020-07-02] MEDS ORDERED: MORPHINE SULFATE IV SCH (20:00)
--- NOTE | 2020-07-02 21:24 | NUR ---
MS/TELE/RN POST MORTEM CARE WAS DONE PER PROTOCOL. REMAINS WAS PICKED UP BY THE MORTUARY AT 2120.
== END 2020-07-02 19:10 | disposition expired | DRG 871 ==
LOC: HOSPICE1 11:19 → HOSPICE 07-01 19:06
PROVIDERS: ADMIT Nurse Practitioner Acute Care; ATTEND Nurse Practitioner Acute Care
DX: A41.9 Sepsis, unspecified organism (principal); G93.41 Metabolic encephalopathy; N18.6 End stage renal disease; R53.2 Functional quadriplegia; E44.0 Moderate protein-calorie malnutrition; J96.10 Chronic respiratory failure, unspecified whether with hypoxia or hypercapnia; N39.0 Urinary tract infection, site not specified; I12.0 Hypertensive chronic kidney disease with stage 5 chronic kidney disease or end stage renal disease; E11.52 Type 2 diabetes mellitus with diabetic peripheral angiopathy with gangrene; Z16.12 Extended spectrum beta lactamase (ESBL) resistance; E11.22 Type 2 diabetes mellitus with diabetic chronic kidney disease; E83.39 Other disorders of phosphorus metabolism; G40.909 Epilepsy, unspecified, not intractable, without status epilepticus; Z99.2 Dependence on renal dialysis; Z98.2 Presence of cerebrospinal fluid drainage device; Z86.73 Personal history of transient ischemic attack (TIA), and cerebral infarction without residual deficits; D64.9 Anemia, unspecified; E87.6 Hypokalemia; Z51.5 Encounter for palliative care; Z66 Do not resuscitate; Z93.0 Tracheostomy status; Z86.61 Personal history of infections of the central nervous system; Z83.3 Family history of diabetes mellitus; E88.09 Other disorders of plasma-protein metabolism, not elsewhere classified; B96.4 Proteus (mirabilis) (morganii) as the cause of diseases classified elsewhere
CPT/HCPCS: 31720; 90935-TC; 94640-TC; 94762-TC; 94799-TC; A4623; A6403; A7526; G0378; J2274; J7030; J7050; J7060